=== PATIENT | female | born 1965 | race African-American/Black ===

== ENCOUNTER 2021-05-09 17:48 | Emergency (ER) | payer MEDICAID, SELFPAY ==
[2021-05-09 17:57] VITALS: BP 181/143; PULSE 102; RESP 26; TEMP 36.3; BMI 35.0
--- NOTE | 2021-05-09 19:25 | EKG12_ITS ---
Test Reason : RIB PAIN Blood Pressure : / mmHG Vent. Rate : 095 BPM Atrial Rate : 095 BPM P-R Int : 142 ms QRS Dur : 084 ms QT Int : 356 ms P-R-T Axes : 054 -06 008 degrees QTc Int : 447 ms Normal sinus rhythm Voltage criteria for left ventricular hypertrophy Abnormal ECG Confirmed by MINDI AUGUSTE, REGINA ([id number]), editorial assistant EFREM GRADY ([id number]) on 05/12/2021 10:00:54 AM Referred By: Confirmed By:REGINA OBREGON MD
[2021-05-09 19:26] VITALS: RESP 17
[2021-05-09] MEDS: Ondansetron 4 MG/2 ML Vial IV (19:33)
[2021-05-09] MEDS: 0.9% Normal Saline 1,000 ML 1000 ML IV (19:33)
[2021-05-09 19:34] LABS: Absolute Lymphocyte Count 4.21 X10^3/uL (0.83-4.51); Absolute Neutrophil Count 8.1 X10^3/uL (2.0-7.7); Basophil# 0.04 X10^3/uL; Basophil% 0.3 % (0-1); Eosinophil# 0.38 X10^3/uL; Eosinophils% 2.8 % (0-5); Hematocrit 38.8 % (37-47); Hemoglobin 12.1 g/dL (12.0-15.0); Lymphocyte # 4.21 X10^3/ul (0.83-4.51); Lymphocyte % 31.3 % (19-41); Mean Corp Hgb Conc 31.2 g/dL (32-36); Mean Corpuscular Volume 86.6 fL (81-99); Mean Platelet Vol. 11.1 fl (6.2-12.0); Monocyte# 0.56 X10^3/uL; Monocyte% 4.2 % (0-10); NRBC Flagged by Analyzer 0 % (0-5); Neutrophil # 8.12 X10^3/uL (2.7-7.7); Neutrophil % 60.5 % (47-70); Platelet Count 323 K/mm3 (150-450); RBC Distribution Width SD 56.4 fl (35.1-43.9); Red Blood Count 4.48 M/mm3 (4.2-5.4); White Blood Count 13.4 K/mm3 (4.4-11.0)
[2021-05-09] MEDS: Ketorolac 15 MG/ML Vial IV (19:34)
--- NOTE | 2021-05-09 19:42 | RAD_ITS ---
STUDY: X-RAY CHEST REASON FOR EXAM: Female, 55 years old. chest pain TECHNIQUE: Single AP portable view of the chest. COMPARISON: None. FINDINGS: Mild interstitial edema is present in bilateral perihilar regions, however no consolidation is seen. There is no demonstrated pleural abnormality. Normal size heart. Normal mediastinum and hernan. Normal visualized pulmonary arteries. There is atherosclerotic calcification of the aortic arch with tortuosity. Normal visualized thoracic spine. Normal visualized ribs, clavicles, and shoulders. There is no demonstrated abnormality of the visualized soft tissue structures of the upper abdomen. RAD/Chest 1 View (Portable) IMPRESSION: Mild interstitial edema is present in bilateral perihilar regions, however no consolidation is seen. Electronically Signed: Ari Melgar MD at 20:28 EDT , Service support ,
[2021-05-09 19:49] VITALS: BP 154/61; PULSE 90; RESP 15; O2SAT 96
[2021-05-09 19:56] LABS: ALB/GLOB Ratio 0.8 RATIO (0.9-2.4); AST(SGOT) 21 U/L (15-37); Alanine Aminotransfer ALT/SGPT 42 U/L (13-56); Albumin, Serum 3.8 g/dL (3.2-5.0); Alkaline Phosphatase 100 U/L (45-117); Anion Gap 9 (5-15); BUN 23 mg/dL (7-18); BUN/Creat Ratio 14.6 RATIO (10-20); Calcium,Total 10.7 mg/dL (8.5-10.1); Chloride 102 mmol/L (98-107); Creatinine, Serum 1.58 mg/dL (0.55-1.02); EST Glomerular Filtration Rate 36 mL/min (>60); Est Glom Filt Rate - Afr Amer 43 mL/min (>60); Estimated Creatinine Clearance 34.33 ml/min; Globulin 4.9 g/dL (2.2-4.2); Glucose 100 mg/dL (74-106); Lipase 136 U/L (73-393); Potassium 3.4 mmol/L (3.5-5.1); Protein, Total 8.7 g/dL (6.4-8.2); Sodium Level 140 mmol/L (136-145); Troponin-I HS 23.8 pg/mL (3.0-53.7)
--- NOTE | 2021-05-09 20:01 | CT_ITS ---
STUDY: CT ABDOMEN AND PELVIS WITH CONTRAST REASON FOR EXAM: Female, 55 years old. vomiting chest/back pain, noncompliant diabetic, hx substance abuse, bilat lower extremity amputation RADIATION DOSAGE (If Supplied By Facility): CTDIvol = ( 14.45 ) mGy, DLP = ( 1165.56 ) mGycm TECHNIQUE: Transaxial images were obtained from the dome of the diaphragm to the symphysis pubis without oral contrast. IV 100mL Isovue-300 was administered. Sagittal and coronal images were reconstructed. Individualized dose optimization techniques were used for this CT. COMPARISON: None. FINDINGS: There are chronic interstitial fibrotic changes of the lung bases. Mild interstitial edema is present in bilateral lower lobes. Discoid atelectasis is present in the right lower lobe. A small parenchymal cyst is also present in the medial aspect of the right lower lobe. There are several healed right-sided rib fractures. There is decreased attenuation of the liver consistent with steatosis. The liver is mildly enlarged. Normal gallbladder and extrahepatic biliary system. Normal spleen. Normal pancreas. Normal bilateral adrenal glands. Normal right kidney. Normal left kidney. Normal visualized stomach. Normal small intestine. Normal colon. The appendix is visualized and appears normal. There is diffuse atherosclerotic calcification of the abdominal aorta, without a demonstrated aneurysm. Vascular stents are present in the bilateral common iliac arteries. Normal inferior vena cava. Normal retroperitoneum. Normal urinary bladder. A shallow umbilical hernia is present containing the midportion of the transverse colon but without incarceration. There are diffuse degenerative changes of the visualized lumbar spine. CT/Abdomen/Pelvis W IV Cont ONLY IMPRESSION: 1. A shallow umbilical hernia is present containing the midportion of the transverse colon but without incarceration. 2. There are chronic interstitial fibrotic changes of the lung bases. Mild interstitial edema is present in bilateral lower lobes. 3. Discoid atelectasis is present in the right lower lobe. A small parenchymal cyst is also present in the medial aspect of the right lower lobe. Electronically Signed: Ari Melgar MD at 21:11 EDT , Service support ,
[2021-05-09 21:01] VITALS: BP 128/63; PULSE 88; RESP 14; O2SAT 97
[2021-05-09 21:11] LABS: Mucous, Urine 0 SEEN /hpf (<or=2+); Red Blood Cells-Urine 0 SEEN /hpf (0-5); Squamous Epithelial Cells - UA 0 SEEN /hpf (5-10)
[2021-05-09 21:14] LABS: Color, Urine Yellow (Yellow); Glucose, Dipstick Normal (Normal); Ketone-Dipstick Negative (Negative); Leukocyte Esterase-Dipstick 25 /ul (Negative); Nitrite-Dipstick Negative (Negative); Occult Blood-Urine Negative /ul (Negative); Protein-Dipstick 30 mg/dl (Negative); Specific Gravity, Urine 1.015 (1.002-1.030); Urine Clarity Clear (Clear); Urine Urobilinogen 1 mg/dl (Normal)
[2021-05-09 21:19] LABS: Urine Bilirubin Dipstick 1 mg/dL (Negative)
[2021-05-09 21:20] LABS: Bacteria 1+ /hpf (None Seen)
[2021-05-09 21:21] LABS: Hyaline Cast 10-25 SEEN /lpf (0-5)
[2021-05-09 21:26] LABS: Transitional Epithelial - Ur 5-10 SEEN /hpf (0-5); White Blood Cells 0-5 SEEN /hpf (0-5)
--- NOTE | 2021-05-09 21:26 | ED.VIS.CHEST ---
HPI History of Present Illness Chief Complaint: Chest Pain Informant: patient and friend Narrative Narrative: 55-year-old female history of diabetes dyslipidemia schizoaffective disorder and bipolar disorder presents the emergency department stating that her back and her chest hurt and she has been vomiting all day. No reported fevers. No diarrhea. She also states that since arriving in from the emergency squad she has been itchy. She notes her chest pain is worse with vomiting and with cough. No sputum production. No reports of bad food, sick contacts, or bad water. 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 Alcohol dependence, uncomplicated Atrophy of muscle of multiple sites Bipolar disorder, unspecified Cocaine abuse, uncomplicated Essential (primary) hypertension Gastro-esophageal reflux disease without esophagitis Hyperlipidemia, unspecified Insomnia, unspecified Major depressive disorder, single episode, unspecified Metabolic encephalopathy Muscle weakness (generalized) Other chronic pain Patient's noncompliance with other medical treatment and regimen Peripheral vascular disease, unspecified Schizoaffective disorder, bipolar type Type 2 diabetes mellitus without complications Vitamin D deficiency, unspecified Home Medications aspirin 81 mg tablet,delayed release 81 mg PO DAILY 04/28/21 [History Last Taken Unknown] atorvastatin 40 mg tablet 40 mg PO QHS 04/28/21 [History Last Taken Unknown] cholecalciferol (vitamin D3) 125 mcg (5,000 unit) capsule 125 mcg PO DAILY 04/28/21 [History Last Taken Unknown] diclofenac sodium 1 % topical gel 2 g TOPICAL BID g 04/28/21 [History Last Taken Unknown] gabapentin 300 mg capsule 300 mg PO TID 04/28/21 [History Last Taken Unknown] glipizide 10 mg tablet 10 mg PO TID tab 04/28/21 [History Last Taken Unknown] guaifenesin 400 mg tablet 400 mg PO BID tab 04/28/21 [History Last Taken Unknown] hydrochlorothiazide 25 mg tablet 25 mg PO BID 04/28/21 [History Last Taken Unknown] ibuprofen 800 mg tablet 800 mg PO Q8H PRN 04/28/21 [History Last Taken Unknown] insulin glargine 100 unit/mL (3 mL) subcutaneous pen 75 unit SUBCUT BID ml 04/28/21 [History Last Taken Unknown] insulin lispro 100 unit/mL subcutaneous pen 25 unit SUBCUT .QID ml 04/28/21 [History Last Taken Unknown] lisinopril 10 mg tablet 10 mg PO DAILY 04/28/21 [History Last Taken Unknown] magnesium hydroxide 400 mg/5 mL oral suspension 30 ml PO BID PRN ml 04/28/21 [History Last Taken Unknown] melatonin 3 mg tablet 3 mg PO HS 04/28/21 [History Last Taken Unknown] metformin 1,000 mg tablet 1,000 mg PO BID 04/28/21 [History Last Taken Unknown] omeprazole 40 mg capsule,delayed release 40 mg PO DAILY 04/28/21 [History Last Taken Unknown] ondansetron HCl 4 mg tablet 4 mg PO Q6H PRN 04/28/21 [History Last Taken Unknown] sennosides 8.6 mg-docusate sodium 50 mg tablet 1 tab-cap PO BID tab 04/28/21 [History Last Taken Unknown] sertraline 100 mg tablet 100 mg PO DAILY 04/28/21 [History Last Taken Unknown] trazodone 50 mg tablet 75 mg PO QHS tab 04/28/21 [History Last Taken Unknown] Allergy/AdvReac Type Severity Reaction Status Date / Time No Known Allergies Allergy Unverified 05/09/21 19:38 Social History Smoking Status: Current every day smoker tobacco type: cigarettes alcohol intake: current substance use type: former substance user what type of physical activity do you participate in: none ROS ROS ED Constitutional Constitutional ED: Denies chills or weight loss Eyes Eyes: Denies change in vision or diplopia ENT ENT ED: Denies ear pain, rhinorrhea or sore throat Cardiovascular Cardiovascular: Reports chest pain; Denies orthopnea, palpitations or racing heartbeat Respiratory/Chest Respiratory/Chest: Reports cough; Denies dyspnea or orthopnea Gastrointestinal Gastrointestinal: Reports abdominal pain, nausea and vomiting; Denies diarrhea Genitourinary Genitourinary ED: Denies dysuria, hematuria or urinary frequency Musculoskeletal Musculoskeletal: Reports back pain; Denies arthralgias or myalgias Integumentary Denies abscess or rash Neurologic Neurologic: Denies headache(s) or weakness Psychiatric Psychiatric: Denies anxiety, depression, suicidal ideation or suicidal thoughts Endocrine Endocrinology: Denies polydipsia, polyphagia or polyuria Allergic/Immunologic Allergic/Immunologic ED: Denies mouth swelling, tongue swelling or urticaria EXAM Physical Exam Const Vital Signs: 05/09/21 17:57 05/09/21 18:01 05/09/21 19:26 Temperature 97.4 F L Temperature Source Temporal Pulse Rate 102 H Respiratory Rate 26 H 17 Respiratory Effort Normal Non-Labored Blood Pressure 181/143 H Blood Pressure Mean 155 Pulse Ox Oxygen Delivery Method Room Air Room Air 05/09/21 19:49 05/09/21 21:01 Temperature Temperature Source Pulse Rate 90 88 Respiratory Rate 15 14 Respiratory Effort Blood Pressure 154/61 H 128/63 H Blood Pressure Mean 92 84 Pulse Ox 96 97 Oxygen Delivery Method Room Air Room Air Positive well nourished and well developed General Appearance ED: well developed HEENT Reports normocephalic, head/scalp atraumatic and moist mucous membranes Eyes PERRL and EOMs intact bilaterally Neck no lymphadenopathy, supple and no JVD Chest Wall Chest: tenderness Resp normal respiratory effort Effort and Inspection: pain with movement Cardio regular rate, regular rhythm and no murmurs GI normal to inspection, nondistended, normoactive bowel sounds and non-tender Palpation: soft Back/Spine no CVA tenderness and normal ROM Extremity Extremity Narrative: Bilateral BKA General Extremety ED: Negative for edema or tenderness General Extremity: Negative for edema Neuro oriented x3 and CN's II-XII intact bilaterally Sensorium / Orientation: alert Motor Exam: strength 5/5 throughout Psych mental status grossly normal Mood & Affect: Negative for depressed or tearful Skin no rashes or lesions noted and no wounds Heart Score History: Slightly/Non-Suspicious ECG: Normal Age: >45 - <65 years Risk Factors: >/= 3 Risk Factors or History of CAD Troponin: </= Normal Limit Score: 3 MDM MDM MDM Narrative Medical decision making narrative: Patient received Zofran Toradol and IV fluids. She also received Benadryl for her itching. Basic blood work showed nonspecific white count of 13.4. Potassium 3.4. Creatinine 1.58. Urinalysis does not demonstrate any obvious infection lipase 136. Interpretation of the chest x-ray is no acute process. CT the abdomen pelvis was obtained and is negative for acute findings. At this point patient will be discharged home. Would recommend oral hydration as needed Tylenol for the chest pain. She states that she has Zofran at home. Lab Data Attestation: I reviewed the patient's lab results. Labs: Laboratory Results - last 24 hr 05/09/21 05/09/21 05/09/21 17:55 17:55 21:00 WBC 13.4 H RBC 4.48 Hgb 12.1 Hct 38.8 MCV 86.6 MCH 27.0 MCHC 31.2 L RDW Std Deviation 56.4 H RDW Coeff of Thien 18.0 H Plt Count 323 MPV 11.1 Immature Gran % (Auto) 0.900 Neut % (Auto) 60.5 Lymph % (Auto) 31.3 [place] % (Auto) 4.2 Eos % (Auto) 2.8 Baso % (Auto) 0.3 Absolute Neuts (auto) 8.1 H Absolute Lymphs (auto) 4.21 Nucleated RBC % 0 Sodium 140 Potassium 3.4 L Chloride 102 Carbon Dioxide 29.0 Anion Gap 9 BUN 23 H Creatinine 1.58 H Estim Creat Clear Calc 34.33 Est GFR (MDRD) Af Amer 43 L Est GFR (MDRD) Non-Af 36 L BUN/Creatinine Ratio 14.6 Glucose 100 Calcium 10.7 H Total Bilirubin 0.20 AST 21 ALT 42 Alkaline Phosphatase 100 Troponin I High Sens 23.8 Total Protein 8.7 H Albumin 3.8 Globulin 4.9 H Albumin/Globulin Ratio 0.8 L Lipase 136 Urine Color Yellow Urine Clarity Clear Urine pH 5.0 Ur Specific [place] 1.015 Urine Protein 30 H Urine Glucose (UA) Normal Urine Ketones Negative Urine Occult Blood Negative Urine Nitrite Negative Urine Bilirubin 1 H Urine Urobilinogen 1 H Ur Leukocyte Esterase 25 H Urine RBC 0 SEEN Urine WBC 0-5 SEEN Ur Squamous Epith Cells 0 SEEN Ur Transition Epith Cell 5-10 SEEN Urine Bacteria 1+ Hyaline Casts 10-25 SEEN Urine Mucus 0 SEEN Radiography Diagnostic Testing: Radiology Impression Chest X-Ray 05/09/21 19:42 IMPRESSION: Mild interstitial edema is present in bilateral perihilar regions, however no consolidation is seen. Electronically Signed: Ari Melgar MD at 20:28 EDT , Service support , Abdomen/Pelvis CT 05/09/21 20:01 IMPRESSION: 1. A shallow umbilical hernia is present containing the midportion of the transverse colon but without incarceration. 2. There are chronic interstitial fibrotic changes of the lung bases. Mild interstitial edema is present in bilateral lower lobes. 3. Discoid atelectasis is present in the right lower lobe. A small parenchymal cyst is also present in the medial aspect of the right lower lobe. Electronically Signed: Ari Melgar MD at 21:11 EDT , Service support , EKG Initial EKG: Attestation: I personally reviewed and interpreted this EKG as follows: Comments: EKG demonstrates a normal sinus rhythm at a rate of 95 bpm. No concerning features of ACS or ectopy noted. Discharge Plan Triage Chief Complaint: Chest Pain ED Provider: Magno Trejo Dx/Rx/DC Orders Clinical Impression: Chest pain, Vomiting Instructions: ED Strain Chest Wall, ED Vomiting (Adult) Prescriptions: No Action aspirin 81 mg tablet,delayed release (DR/EC) 81 mg PO DAILY RF: 0 atorvastatin 40 mg tablet 40 mg PO QHS RF: 0 gabapentin 300 mg capsule 300 mg PO TID RF: 0 glipizide 10 mg tablet 10 mg PO TID RF: 0 hydrochlorothiazide 25 mg tablet 25 mg PO BID RF: 0 ibuprofen 800 mg tablet 800 mg PO Q8H PRN (Reason: Pain) RF: 0 insulin lispro 100 unit/mL insulin pen 25 unit subcut .QID RF: 0 Lantus Solostar U-100 Insulin 100 unit/mL (3 mL) insulin pen 75 unit subcut BID RF: 0 lisinopril 10 mg tablet 10 mg PO DAILY RF: 0 melatonin 3 mg tablet 3 mg PO HS RF: 0 metformin 1,000 mg tablet 1,000 mg PO BID RF: 0 magnesium hydroxide [Milk of Magnesia] 400 mg/5 mL suspension 30 ml PO BID PRN (Reason: Constipation) RF: 0 guaifenesin [Mucus Relief] 400 mg tablet 400 mg PO BID RF: 0 omeprazole 40 mg capsule,delayed release(DR/EC) 40 mg PO DAILY RF: 0 sennosides-docusate sodium [Senna Plus] 8.6-50 mg tablet 1 tab-cap PO BID RF: 0 sertraline 100 mg tablet 100 mg PO DAILY RF: 0 trazodone 50 mg tablet 75 mg PO QHS RF: 0 cholecalciferol (vitamin D3) 125 mcg (5,000 unit) capsule 125 mcg PO DAILY RF: 0 diclofenac sodium 1 % gel 2 g topical BID RF: 0 ondansetron HCl [Zofran] 4 mg tablet 4 mg PO Q6H PRN (Reason: Nausea) RF: 0 Primary Care Provider: Chris Bustamante Referrals: Chris Bustamante MD [Primary Care Provider] - 3-5 Days if not improving Disposition Disposition: Home, Self Care
[2021-05-09 21:35] VITALS: BP 112/53; PULSE 88; RESP 18; O2SAT 95
== END 2021-05-09 21:40 | disposition home or self-care (01) ==
PROVIDERS: Emergency Provider Emergency Medicine; PCP Internal Medicine
DX: R07.9 Chest pain, unspecified (principal); R11.10 Vomiting, unspecified; K42.9 Umbilical hernia without obstruction or gangrene; J81.1 Chronic pulmonary edema; J98.11 Atelectasis; E11.51 Type 2 diabetes mellitus with diabetic peripheral angiopathy without gangrene; E78.5 Hyperlipidemia, unspecified; F17.210 Nicotine dependence, cigarettes, uncomplicated; F14.10 Cocaine abuse, uncomplicated; F25.0 Schizoaffective disorder, bipolar type; G47.00 Insomnia, unspecified; G89.29 Other chronic pain; I10 Essential (primary) hypertension; I25.10 Atherosclerotic heart disease of native coronary artery without angina pectoris; K21.9 Gastro-esophageal reflux disease without esophagitis; Z79.4 Long term (current) use of insulin; Z79.82 Long term (current) use of aspirin; Z91.19 Patient's noncompliance with other medical treatment and regimen
CPT/HCPCS: 71045; 74177; 80053; 81001; 83690; 84484; 85025; 93005; 96361; 96374; 96375; 99285; J7030; Q9967; J2405

== ENCOUNTER → 2021-05-26 14:15 | Outpatient (CLI) | payer MEDICAID, SELFPAY ==
[2021-05-26 13:51] VITALS: BMI 35.0
[2021-05-26 14:59] LABS: Absolute Lymphocyte Count 3.57 X10^3/uL (0.83-4.51); Absolute Neutrophil Count 7.3 X10^3/uL (2.0-7.7); Basophil# 0.04 X10^3/uL; Basophil% 0.3 % (0-1); Eosinophil# 0.39 X10^3/uL; Eosinophils% 3.3 % (0-5); Hematocrit 40.4 % (37-47); Hemoglobin 12.5 g/dL (12.0-15.0); Lymphocyte # 3.57 X10^3/ul (0.83-4.51); Lymphocyte % 29.9 % (19-41); Mean Corp Hgb Conc 30.9 g/dL (32-36); Mean Corpuscular Hgb 27.4 pg (27.0-32.0); Mean Corpuscular Volume 88.6 fL (81-99); Monocyte# 0.57 X10^3/uL; Monocyte% 4.8 % (0-10); NRBC Flagged by Analyzer 0 % (0-5); Neutrophil # 7.28 X10^3/uL (2.7-7.7); Neutrophil % 60.9 % (47-70); Platelet Count 353 K/mm3 (150-450); RBC Distribution Width CV 17.7 % (11.6-14.6); RBC Distribution Width SD 56.5 fl (35.1-43.9); Red Blood Count 4.56 M/mm3 (4.2-5.4)
[2021-05-26 15:21] LABS: Hemoglobin A1c 8.5 % (3.8-5.6)
[2021-05-26 15:25] LABS: ALB/GLOB Ratio 0.8 RATIO (0.9-2.4); AST(SGOT) 28 U/L (15-37); Alanine Aminotransfer ALT/SGPT 53 U/L (13-56); Albumin, Serum 3.7 g/dL (3.2-5.0); Alkaline Phosphatase 99 U/L (45-117); Anion Gap 10 (5-15); BUN 26 mg/dL (7-18); BUN/Creat Ratio 19.4 RATIO (10-20); Chloride 101 mmol/L (98-107); Cholesterol 205 mg/dL (200); Creatinine, Serum 1.34 mg/dL (0.55-1.02); EST Glomerular Filtration Rate 43 mL/min (>60); Est Glom Filt Rate - Afr Amer 52 mL/min (>60); Globulin 4.8 g/dL (2.2-4.2); Glucose 208 mg/dL (74-106); High Density Lipoprotein 27 mg/dL; Potassium 4.1 mmol/L (3.5-5.1); Protein, Total 8.5 g/dL (6.4-8.2); Sodium Level 138 mmol/L (136-145); Triglycerides 386 mg/dL; Very Low Density Lipoprotein 77 mg/dL (5-40)
[2021-05-26 17:08] LABS: Microalbumin,Random Urine 13.6 mg/L (NO RANGE EST.); Microalbumin:Creatinine Ratio 14.7 mg/g CRE (<30 mg/g CRE)
== END ==
PROVIDERS: PCP Internal Medicine; Referring Provider Internal Medicine; Visit Provider Internal Medicine
DX: E11.9 Type 2 diabetes mellitus without complications (principal)
CPT/HCPCS: 36415; 80053; 80061; 82043; 82570; 83036; 85025

== ENCOUNTER → 2021-05-27 12:35 | Outpatient (CLI) | payer MEDICAID, SELFPAY ==
[2021-05-26 13:51] VITALS: BMI 35.0
--- NOTE | 2021-05-27 12:39 | RAD_ITS ---
STUDY: X-RAY - LUMBAR SPINE REASON FOR EXAM: Female, 55 years old. Chronic Low Back Pain TECHNIQUE: 5 view(s) of the lumbar spine were obtained. COMPARISON: None FINDINGS: Normal lumbar lordosis. There is no substantial scoliosis. There is a normal alignment of the vertebrae. Normal vertebral bodies and endplates. Focal disc space narrowing and osteophyte formation at L5/S1 consistent with degenerative disc disease. The soft tissue structures are unremarkable. RAD/L/S Spine Min 4 Views IMPRESSION: Focal degenerative disc disease L5/S1. MRI may be useful. Electronically Signed: Ramón Cheung MD at 13:25 EDT Tel , Service support ,
--- NOTE | 2021-05-27 12:40 | RAD_ITS ---
STUDY: X-RAY - CERVICAL SPINE REASON FOR EXAM: Female, 55 years old. Chronic Neck Pain TECHNIQUE: 3 view(s) of the cervical spine were obtained. COMPARISON: None FINDINGS: Normal anterior atlantoaxial articulation. Normal odontoid process. Normal cervical lordosis. Normal vertebral bodies and endplates. Focal disc space narrowing and osteophyte formation at C5/C6 consistent with degenerative disc disease. 2 mm retrolisthesis of C5 on C6. Normal visualized intervertebral neuroforamina. The soft tissue structures are unremarkable. RAD/Cerv Spine 2 or 3 Views IMPRESSION: Focal degenerative disc disease at C5-C6 with 2 mm retrolisthesis of C5 on C6. Electronically Signed: Ramón Cheung MD at 13:23 EDT Tel , Service support ,
== END ==
PROVIDERS: PCP Internal Medicine; Referring Provider Internal Medicine; Visit Provider Internal Medicine
DX: M54.2 Cervicalgia (principal); G89.29 Other chronic pain; M54.5 Low back pain
CPT/HCPCS: 72040; 72110

== ENCOUNTER → 2021-08-10 11:45 | Outpatient (CLI) | payer MEDICAID, SELFPAY ==
[2021-08-10 15:30] LABS: Anion Gap 8 (5-15); BUN 13 mg/dL (7-18); Calcium,Total 9.1 mg/dL (8.5-10.1); Chloride 103 mmol/L (98-107); Cholesterol 148 mg/dL (200); EST Glomerular Filtration Rate 61 mL/min (>60); Est Glom Filt Rate - Afr Amer 74 mL/min (>60); Glucose 151 mg/dL (74-106); High Density Lipoprotein 26 mg/dL; Potassium 3.8 mmol/L (3.5-5.1); Sodium Level 137 mmol/L (136-145); Triglycerides 221 mg/dL; Very Low Density Lipoprotein 44 mg/dL (5-40)
[2021-08-10 15:37] LABS: Hemoglobin A1c 8.7 % (3.8-5.6)
== END ==
PROVIDERS: PCP Internal Medicine; Referring Provider Internal Medicine; Visit Provider Internal Medicine
DX: E11.9 Type 2 diabetes mellitus without complications (principal)
CPT/HCPCS: 36415; 80048; 80061; 83036

== ENCOUNTER → 2021-08-26 11:00 | Outpatient (CLI) | payer MEDICAID, SELFPAY ==
[2021-08-26 13:11] LABS: Thyroid Stim Hormone (TSH) 1.65 uIU/mL (0.358-3.74)
== END ==
PROVIDERS: PCP Internal Medicine; Referring Provider Nurse Practitioner Family; Visit Provider Nurse Practitioner Family
DX: Z00.00 Encounter for general adult medical examination without abnormal findings (principal); E11.9 Type 2 diabetes mellitus without complications
CPT/HCPCS: 36415; 84443

== ENCOUNTER → 2021-09-01 13:01 | Outpatient (CLI) | payer MEDICAID, SELFPAY ==
--- NOTE | 2021-09-01 13:05 | US_ITS ---
STUDY: THYROID ULTRASOUND REASON FOR EXAM: Female, 56 years old. Palpable enlarged thyroid TECHNIQUE: Ultrasound evaluation of the thyroid was performed with real-time and static antunez-scale imaging. COMPARISON: None. FINDINGS: RIGHT LOBE: The right lobe of the thyroid gland measures 7.7 x 2.4 x 1.9 cm. There is a heterogeneous echotexture. There are multiple solid/cystic complex nodules, largest measures 1.1 x 0.8 x 0.9 cm LEFT LOBE: The left lobe of the thyroid gland measures 6.6 x 2.6 x 2.1 cm. There is a heterogeneous echotexture. Multiple solid nodules, largest measures 1.0 x 0.7 x 0.9 cm. ISTHMUS: The isthmus measures 7.0 mm. The regional lymph nodes are normal. US/Thyroid IMPRESSION: Enlarged heterogeneous thyroid gland with multiple bilateral nodules. Solid nodules noted in the left lobe, complex nodules noted in the right. Sonography cannot establish between benign and aggressive nodules, and since there are no previous studies available for comparison, thyroid uptake study is recommended for further evaluation. Electronically Signed: Kike Alegre MD at 17:01 EST , Service support ,
== END ==
PROVIDERS: PCP Internal Medicine; Referring Provider Nurse Practitioner Family; Visit Provider Nurse Practitioner Family
DX: E01.0 Iodine-deficiency related diffuse (endemic) goiter (principal)
CPT/HCPCS: 76536

== ENCOUNTER 2021-09-28 13:36 | Observation (INO) | payer MEDICAID, SELFPAY ==
[2021-09-28] VITALS (15 sets, daily range): BP systolic 58–130; BP diastolic 47–95; PULSE 88–113; RESP 14–20; TEMP 36.4–36.7; O2SAT 93–98; BMI 30.4
--- NOTE | 2021-09-28 14:19 | EKG12_ITS ---
Test Reason : PAIN Blood Pressure : / mmHG Vent. Rate : 108 BPM Atrial Rate : 108 BPM P-R Int : 132 ms QRS Dur : 090 ms QT Int : 324 ms P-R-T Axes : 045 003 038 degrees QTc Int : 434 ms Sinus tachycardia Nonspecific T wave abnormality Abnormal ECG Confirmed by VIRAL AUGUSTE, JONG ([id number]), sports editor EFREM GRADY ([id number]) on 09/30/2021 12:45:22 PM Referred By: ELLIOTT Confirmed By:AGAPITO STRATTON MD
--- NOTE | 2021-09-28 14:21 | EX.ED.DYSGE1 ---
HPI History of Present Illness Chief Complaint: Other, Pain/Inj Detail of Chief Complaint: Not feeling well x3 weeks Informant: patient Narrative Narrative: Patient presents to the emergency department via EMS from home with complaint not feeling well for the last 3 weeks or so. Patient apparently lives alone and gets around in a power wheelchair. 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 Patient complains of diffuse body pain. She complains of cough. She complains of dysuria. Intermittent abdominal discomfort. Decreased appetite. Low-grade fever that subjective. Patient has a history of bipolar disorder as well as schizophrenia and diabetes and high cholesterol. Patient has history of chronic pain. [facility] Medical History Acquired absence of left leg below knee Acquired absence of right leg below knee Alcohol dependence, uncomplicated Atrophy of muscle of multiple sites Bipolar disorder, unspecified Chronic low back pain Chronic neck pain Chronic pain Cocaine abuse, uncomplicated Colon cancer screening Essential (primary) hypertension Flu vaccine need Gastro-esophageal reflux disease without esophagitis Hyperlipidemia, unspecified Insomnia, unspecified Major depressive disorder, single episode, unspecified Metabolic encephalopathy Muscle weakness (generalized) Other chronic pain Patient's noncompliance with other medical treatment and regimen Peripheral vascular disease, unspecified Preventative health care Schizoaffective disorder, bipolar type Type 2 diabetes mellitus Type 2 diabetes mellitus without complications Vitamin D deficiency, unspecified Home Medications diclofenac sodium 1 % topical gel 2 g TOPICAL BID g 04/28/21 [History Last Taken Unknown] guaifenesin 400 mg tablet 400 mg PO BID tab 04/28/21 [History Last Taken Unknown] ibuprofen 800 mg tablet 800 mg PO Q8H PRN 04/28/21 [History Last Taken Unknown] magnesium hydroxide 400 mg/5 mL oral suspension 30 ml PO BID PRN ml 04/28/21 [History Last Taken Unknown] ondansetron HCl 4 mg tablet 4 mg PO Q6H PRN 04/28/21 [History Last Taken Unknown] sennosides 8.6 mg-docusate sodium 50 mg tablet 1 tab-cap PO BID tab 04/28/21 [History Last Taken Unknown] oxycodone 10 mg tablet 10 mg PO Q6H PRN 05/26/21 [History Last Taken Unknown] aspirin 81 mg tablet,delayed release 81 mg PO DAILY #90 tab 05/31/21 [Rx Last Taken Unknown] atorvastatin 40 mg tablet 40 mg PO QHS #90 tab 05/31/21 [Rx Last Taken Unknown] empagliflozin 25 mg tablet 25 mg PO DAILY #90 tab 05/31/21 [Rx Last Taken Unknown] glipizide 10 mg tablet 10 mg PO BID #180 tab 05/31/21 [Rx Last Taken Unknown] hydrochlorothiazide 25 mg tablet 25 mg PO DAILY #90 tab 05/31/21 [Rx Last Taken Unknown] lisinopril 10 mg tablet 10 mg PO DAILY #90 tab 05/31/21 [Rx Last Taken Unknown] metformin 1,000 mg tablet 1,000 mg PO BID #180 tab 05/31/21 [Rx Last Taken Unknown] omeprazole 40 mg capsule,delayed release 40 mg PO DAILY #90 cap 05/31/21 [Rx Last Taken Unknown] sertraline 100 mg tablet 100 mg PO DAILY #90 tab 05/31/21 [Rx Last Taken Unknown] trazodone 50 mg tablet 75 mg PO QHS #90 tab 05/31/21 [Rx Last Taken Unknown] blood sugar diagnostic #100 ea 06/09/21 [Rx Last Taken Unknown] cholecalciferol (vitamin D3) 125 mcg (5,000 unit) capsule 125 mcg PO DAILY #90 cap 06/09/21 [Rx Last Taken Unknown] lancets #100 ea 06/09/21 [Rx Last Taken Unknown] melatonin 3 mg tablet 3 mg PO QHS PRN #90 tab 06/09/21 [Rx Last Taken Unknown] amlodipine 5 mg tablet 5 mg PO DAILY #90 tab 06/23/21 [Rx Last Taken Unknown] quetiapine 25 mg tablet 25 mg PO TID #90 tab 07/08/21 [Rx Last Taken Unknown] albuterol sulfate 90 mcg/actuation aerosol inhaler 2 puff INHALATION Q6H PRN #8.5 g 08/10/21 [Rx Last Taken Unknown] pen needle, diabetic 31 gauge x 1/4 #200 ea 08/28/21 [Rx Last Taken Unknown] gabapentin 300 mg capsule 300 mg PO TID #90 cap 09/01/21 [Rx Last Taken Unknown] blood-glucose meter #1 ea 09/23/21 [Rx Last Taken Unknown] flash glucose scanning reader #1 ea 09/23/21 [Rx Last Taken Unknown] flash glucose sensor #2 ea 09/23/21 [Rx Last Taken Unknown] insulin glargine 100 unit/mL (3 mL) subcutaneous pen 75 unit SUBCUT BID 90 Days #135 ml 09/23/21 [Rx Last Taken Unknown] insulin lispro 100 unit/mL subcutaneous pen 25 unit SUBCUT .QID #15 ml 09/23/21 [Rx Last Taken Unknown] Allergy/AdvReac Type Severity Reaction Status Date / Time No Known Allergies Allergy Verified 09/28/21 13:38 Social History Smoking Status: Current every day smoker tobacco type: cigarettes alcohol intake: current substance use type: former substance user what type of physical activity do you participate in: none ROS ROS ED Constitutional Constitutional ED: Reports systems reviewed and no addt'l complaints, except as documented; Denies body ache(s), change in weight or chills Eyes Eyes: Denies acute decrease in peripheral vision, change in vision, double vision or loss of vision ENT ENT ED: Reports none; Denies ear pain, lip swelling, loss taste/smell, neck pain, otalgia or sore throat Cardiovascular Cardiovascular: Reports none; Denies abdominal pain, chest pain with activity, leg edema, lightheadedness, palpitations, rapid heart rate or syncope Respiratory/Chest Respiratory/Chest: Reports none and cough; Denies change in mental status, dry cough, dyspnea, hemoptysis, shortness of breath at rest or shortness of breath with exertion Gastrointestinal Gastrointestinal: Reports none and abdominal pain; Denies change in stool character, diarrhea, hematemesis, hematochezia, melena, rectal bleeding or vomiting Genitourinary Genitourinary ED: Reports none and dysuria; Denies abdominal discomfort, anuria, genital pain or polyuria Musculoskeletal Musculoskeletal: Reports none; Denies arthralgias, back pain, difficulty walking, extremity pain, muscle weakness or myalgias Integumentary Reports none; Denies abscess or rash Neurologic Neurologic: Reports none; Denies abnormal gait, confusion, focal weakness, frequent falls, headache(s), loss of vision, numbness, paresthesias, radicular pain, vertigo or weakness Psychiatric Psychiatric: Reports systems reviewed and no addt'l complaints, except as documented and none; Denies behavioral changes, confusion, difficulty concentrating, hallucinations, suicidal ideation, tactile hallucinations or visual hallucinations Endocrine Endocrinology: Denies none, cold intolerance, excessive sweating, fatigue or heat intolerance Hematologic/Lymphatic Hematologic/Lymphatic: Reports none; Denies anemia, easy bleeding or easy bruising Allergic/Immunologic Allergic/Immunologic ED: Denies as per HPI, none, lip swelling, mouth swelling, throat swelling, tongue swelling or hives EXAM Physical Exam Const Vital Signs: 09/28/21 13:38 09/28/21 14:19 09/28/21 14:20 Temperature 97.8 F Temperature Source Temporal Pulse Rate 113 H Respiratory Rate 18 Blood Pressure 67/47 L 66/50 L 58/48 L Blood Pressure Mean 53 55 51 Pulse Ox 96 Oxygen Delivery Method Room Air 09/28/21 15:24 09/28/21 15:42 09/28/21 16:33 Temperature Temperature Source Pulse Rate 100 89 Respiratory Rate 18 20 H Blood Pressure 71/55 L 76/57 L 105/54 L Blood Pressure Mean 60 63 71 Pulse Ox 96 98 Oxygen Delivery Method Room Air Room Air Positive well nourished and well developed General Appearance ED: well developed and NAD HEENT Reports TM's clear and moist mucous membranes normocephalic and atraumatic; Negative for trauma or tenderness Tympanic Membrane ED: Yes TM's clear Eyes PERRL and EOMs intact bilaterally General Eye ED: Negative for pale conjunctiva or scleral icterus Neck no lymphadenopathy, supple and no JVD General: Negative for tenderness Chest Wall inspection of chest normal and palpation of chest normal Chest: Negative for tenderness Resp normal respiratory effort and clear to auscultation bilaterally Effort and Inspection: Negative for respiratory distress or pain with movement Auscultation: Negative for rhonchi, wheezes or diminished lung sounds Cardio regular rate, regular rhythm, S1 normal heart sound, S2 normal heart sound and no murmurs Peripheral Pulses: pulses 2+ throughout GI normal to inspection, nondistended, normoactive bowel sounds, soft to palpation, non-tender, non-distended and no masses Back/Spine no CVA tenderness and no thoracic nor lumbar tenderness Extremity normal to inspection General Extremety ED: Negative for edema General Extremity: Negative for edema Neuro oriented x3, CN's II-XII intact bilaterally, no sensory deficits noted and gait normal Sensorium / Orientation: awake, alert, oriented to person, oriented to place and oriented to time Motor Exam: strength 5/5 throughout and strength abnormal Psych mental status grossly normal Skin no rashes or lesions noted and no wounds MDM MDM MDM Narrative Medical decision making narrative: IV line established on arrival. Patient was given normal saline fluid boluses. Her blood pressure was low and variable on presentation and at times in the low 100 systolic. Patient is not diaphoretic and she is mentating normally. She was able to transfer herself to the cot. Chest x-ray was read by radiologist as right lower lobe infiltrate. Patient started on Levaquin 750 mg IV. Patient noted to have acute kidney injury. Patient was given fentanyl for the pain in her back. Lab Data Attestation: I reviewed the patient's lab results. Labs: Laboratory Results - last 24 hr 09/28/21 09/28/21 09/28/21 14:43 14:43 14:43 WBC 12.8 H RBC 4.54 Hgb 12.4 Hct 37.4 MCV 82.4 MCH 27.3 MCHC 33.2 RDW Std Deviation 56.5 H RDW Coeff of Thien 19.0 H Plt Count 295 MPV 10.8 Immature Gran % (Auto) 0.900 Neut % (Auto) 67.7 Lymph % (Auto) 25.6 Island % (Auto) 3.2 Eos % (Auto) 2.3 Baso % (Auto) 0.3 Absolute Neuts (auto) 8.6 H Absolute Lymphs (auto) 3.26 Nucleated RBC % 0.2 Sodium 135 L Potassium 4.1 Chloride 102 Carbon Dioxide 21.0 Anion Gap 12 BUN 47 H Creatinine 3.50 H Estim Creat Clear Calc 15.31 Est GFR (MDRD) Af Amer 17 L Est GFR (MDRD) Non-Af 14 L BUN/Creatinine Ratio 13.4 Glucose 203 H Lactic Acid 1.9 Calcium 9.6 Total Bilirubin 0.20 AST 14 L ALT 23 Alkaline Phosphatase 103 Troponin I High Sens 14 Total Protein 8.3 H Albumin 3.3 Globulin 5.0 H Albumin/Globulin Ratio 0.7 L Lipase 130 Urine Color Urine Clarity Urine pH Ur Specific [place] Urine Protein Urine Glucose (UA) Urine Ketones Urine Occult Blood Urine Nitrite Urine Bilirubin Urine Urobilinogen Ur Leukocyte Esterase Urine RBC Urine WBC Ur Squamous Epith Cells Ur Transition Epith Cell Urine Bacteria Urine Mucus 09/28/21 15:30 WBC RBC Hgb Hct MCV MCH MCHC RDW Std Deviation RDW Coeff of Thien Plt Count MPV Immature Gran % (Auto) Neut % (Auto) Lymph % (Auto) Island % (Auto) Eos % (Auto) Baso % (Auto) Absolute Neuts (auto) Absolute Lymphs (auto) Nucleated RBC % Sodium Potassium Chloride Carbon Dioxide Anion Gap BUN Creatinine Estim Creat Clear Calc Est GFR (MDRD) Af Amer Est GFR (MDRD) Non-Af BUN/Creatinine Ratio Glucose Lactic Acid Calcium Total Bilirubin AST ALT Alkaline Phosphatase Troponin I High Sens Total Protein Albumin Globulin Albumin/Globulin Ratio Lipase Urine Color Yellow Urine Clarity Cloudy Urine pH 5.0 Ur Specific [place] 1.020 Urine Protein 30 H Urine Glucose (UA) 1000 H Urine Ketones 5 H Urine Occult Blood 25 H Urine Nitrite Negative Urine Bilirubin 1 H Urine Urobilinogen 1 H Ur Leukocyte Esterase 500 H Urine RBC 0 SEEN Urine WBC 5-10 SEEN Ur Squamous Epith Cells 0-5 SEEN Ur Transition Epith Cell 0-5 SEEN Urine Bacteria RARE Urine Mucus 0 SEEN Radiography Diagnostic Testing: Clinical Impression(s) from Imaging Studies Chest X-Ray 09/28/21 14:47 IMPRESSION: Patchy right perihilar infiltrate. Electronically Signed: Hamilton Blandon MD at 15:09 EST , Service support , EKG Initial EKG: Attestation: I personally reviewed and interpreted this EKG as follows: Comments: Sinus with a ventricular rate of [address] changes. Discharge Plan Triage Chief Complaint: Other, Pain/Inj ED Provider: Ra Carrasco Dx/Rx/DC Orders Clinical Impression: Community acquired pneumonia, Acute kidney injury Prescriptions: No Action oxycodone 10 mg tablet 10 mg PO Q6H PRNRF: 0 ibuprofen 800 mg tablet 800 mg PO Q8H PRN (Reason: Pain) RF: 0 magnesium hydroxide [Milk of Magnesia] 400 mg/5 mL suspension 30 ml PO BID PRN (Reason: Constipation) RF: 0 guaifenesin [Mucus Relief] 400 mg tablet 400 mg PO BID RF: 0 sennosides-docusate sodium [Senna Plus] 8.6-50 mg tablet 1 tab-cap PO BID RF: 0 diclofenac sodium 1 % gel 2 g topical BID RF: 0 ondansetron HCl [Zofran] 4 mg tablet 4 mg PO Q6H PRN (Reason: Nausea) RF: 0 albuterol sulfate 90 mcg/actuation HFA aerosol inhaler 2 puff inhalation Q6H PRN (Reason: shortness of breath or wheezing) Qty: 8.5 RF: 2 Jardiance 25 mg tablet 25 mg PO DAILY Qty: 90 RF: 2 atorvastatin 40 mg tablet 40 mg PO QHS Qty: 90 RF: 3 aspirin 81 mg tablet,delayed release (DR/EC) 81 mg PO DAILY Qty: 90 RF: 2 glipizide 10 mg tablet 10 mg PO BID Qty: 180 RF: 2 hydrochlorothiazide 25 mg tablet 25 mg PO DAILY Qty: 90 RF: 2 lisinopril 10 mg tablet 10 mg PO DAILY Qty: 90 RF: 2 metformin 1,000 mg tablet 1,000 mg PO BID Qty: 180 RF: 3 omeprazole 40 mg capsule,delayed release(DR/EC) 40 mg PO DAILY Qty: 90 RF: 3 sertraline 100 mg tablet 100 mg PO DAILY Qty: 90 RF: 2 trazodone 50 mg tablet 75 mg PO QHS Qty: 90 RF: 2 cholecalciferol (vitamin D3) 125 mcg (5,000 unit) capsule 125 mcg PO DAILY Qty: 90 RF: 1 melatonin 3 mg tablet 3 mg PO QHS PRN (Reason: sleep) Qty: 90 RF: 0 (DME) Blood Glucose Test Strip See Rx Instructions .ROUTE .MEDSUPPLY Qty: 100 RF: 3 (DME) lancets [Fingerstix Lancets] Misc See Rx Instructions .ROUTE .MEDSUPPLY Qty: 100 RF: 0 amlodipine 5 mg tablet 5 mg PO DAILY Qty: 90 RF: 2 quetiapine 25 mg tablet 25 mg PO TID Qty: 90 RF: 3 (DME) pen needle, diabetic [Lite Touch Insulin Pen [place]] 31 gauge x 1/4 needle See Rx Instructions .ROUTE .MEDSUPPLY Qty: 200 RF: 3 gabapentin 300 mg capsule 300 mg PO TID Qty: 90 RF: 2 (DME) blood-glucose meter Misc See Rx Instructions .ROUTE .MEDSUPPLY Qty: 1 RF: 0 (DME) FreeStyle Kory 2 Garibaldi Misc See Rx Instructions .ROUTE .MEDSUPPLY Qty: 1 RF: 0 (DME) FreeStyle Kory 2 Sensor Kit See Rx Instructions .ROUTE .MEDSUPPLY Qty: 2 RF: 3 Lantus Solostar U-100 Insulin 100 unit/mL (3 mL) insulin pen 75 unit subcut BID 90 Days Qty: 135 RF: 2 insulin lispro 100 unit/mL insulin pen 25 unit subcut .QID Qty: 15 RF: 2 Primary Care Provider: Chris Bustamante Referrals: Chris Bustamante MD [Primary Care Provider] - Disposition Disposition: Acute Care Hospital [facility]
--- NOTE | 2021-09-28 14:47 | RAD_ITS ---
STUDY: X-RAY CHEST REASON FOR EXAM: Female, 56 years old. Cough TECHNIQUE: Single AP portable view of the chest. COMPARISON: Comparison is made with prior study dated 05/09/2021. FINDINGS: EKG electrodes are seen. Patchy infiltrate is seen in the right perihilar region. There is no demonstrated pleural abnormality. Normal size heart. Normal mediastinum and hernan. Normal visualized pulmonary arteries. There is atherosclerotic calcification of the aortic arch with tortuosity. Normal visualized thoracic spine. Normal visualized ribs, clavicles, and shoulders. There is no demonstrated abnormality of the visualized soft tissue structures of the upper abdomen. RAD/Chest 1 View (Portable) IMPRESSION: Patchy right perihilar infiltrate. Electronically Signed: Hamilton Blandon MD at 15:09 EST , Service support ,
[2021-09-28 14:55] LABS: Absolute Lymphocyte Count 3.26 X10^3/uL (0.83-4.51); Absolute Neutrophil Count 8.6 X10^3/uL (2.0-7.7); Basophil# 0.04 X10^3/uL; Basophil% 0.3 % (0-1); Eosinophil# 0.29 X10^3/uL; Eosinophils% 2.3 % (0-5); Hematocrit 37.4 % (37-47); Hemoglobin 12.4 g/dL (12.0-15.0); Lymphocyte # 3.26 X10^3/ul (0.83-4.51); Lymphocyte % 25.6 % (19-41); Mean Corp Hgb Conc 33.2 g/dL (32-36); Mean Corpuscular Hgb 27.3 pg (27.0-32.0); Mean Corpuscular Volume 82.4 fL (81-99); Mean Platelet Vol. 10.8 fl (6.2-12.0); Monocyte# 0.41 X10^3/uL; Monocyte% 3.2 % (0-10); NRBC Flagged by Analyzer 0.2 % (0-5); Neutrophil # 8.64 X10^3/uL (2.7-7.7); Neutrophil % 67.7 % (47-70); Platelet Count 295 K/mm3 (150-450); RBC Distribution Width SD 56.5 fl (35.1-43.9); Red Blood Count 4.54 M/mm3 (4.2-5.4); White Blood Count 12.8 K/mm3 (4.4-11.0)
[2021-09-28 15:14] LABS: ALB/GLOB Ratio 0.7 RATIO (0.9-2.4); AST(SGOT) 14 U/L (15-37); Alanine Aminotransfer ALT/SGPT 23 U/L (13-56); Albumin, Serum 3.3 g/dL (3.2-5.0); Alkaline Phosphatase 103 U/L (45-117); Anion Gap 12 (5-15); BUN 47 mg/dL (7-18); BUN/Creat Ratio 13.4 RATIO (10-20); Calcium,Total 9.6 mg/dL (8.5-10.1); Chloride 102 mmol/L (98-107); EST Glomerular Filtration Rate 14 mL/min (>60); Est Glom Filt Rate - Afr Amer 17 mL/min (>60); Estimated Creatinine Clearance 15.31 ml/min; Glucose 203 mg/dL (74-106); Lipase 130 U/L (73-393); Potassium 4.1 mmol/L (3.5-5.1); Protein, Total 8.3 g/dL (6.4-8.2); Sodium Level 135 mmol/L (136-145); Troponin-I HS 14 pg/mL (3.0-54.0)
[2021-09-28] MEDS: fentaNYL 100 MCG/2 ML Ampul 50 MCG IV (15:36)
[2021-09-28] MEDS: Ondansetron 4 MG/2 ML Vial IV (15:36)
--- NOTE | 2021-09-28 15:43 | ED.RN ---
DR CHAVEZ AWARE OF BP. DILAUDID NOT GIVEN. ORDER FOR SUBSTITUTE RECIEVED
[2021-09-28 15:45] LABS: Lactic Acid 1.9 mmol/L (0.4-1.9)
[2021-09-28 15:57] LABS: Mucous, Urine 0 SEEN /hpf (<or=2+); Red Blood Cells-Urine 0 SEEN /hpf (0-5)
[2021-09-28 16:03] LABS: Color, Urine Yellow (Yellow); Glucose, Dipstick 1000 mg/dl (Normal); Ketone-Dipstick 5 mg/dl (Negative); Leukocyte Esterase-Dipstick 500 /ul (Negative); Nitrite-Dipstick Negative (Negative); Occult Blood-Urine 25 /ul (Negative); Protein-Dipstick 30 mg/dl (Negative); Urine Clarity Cloudy (Clear); Urine Urobilinogen 1 mg/dl (Normal)
[2021-09-28 16:05] LABS: Urine Bilirubin Dipstick 1 mg/dL (Negative)
[2021-09-28 16:13] LABS: Squamous Epithelial Cells - UA 0-5 SEEN /hpf (5-10)
[2021-09-28 16:14] LABS: Transitional Epithelial - Ur 0-5 SEEN /hpf (0-5)
[2021-09-28 16:15] LABS: White Blood Cells 5-10 SEEN /hpf (0-5)
[2021-09-28 16:16] LABS: Bacteria RARE /hpf (None Seen)
[2021-09-28] MEDS: levoFLOXacin IV 750 MG/150 ML BAG 100 MG IV (16:31)
[2021-09-28] MEDS: 0.9% Normal Saline 1,000 ML 999 ML IV (16:32)
--- NOTE | 2021-09-28 16:42 | HP.PCM.HOS_ITS ---
HPI - General General Date of Admission: 09/28/21 Date of Service: 09/28/21 Chief Complaint: Cough, pleuritic pain, decreased appetite. 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 She notes the symptoms have been ongoing and worsening over the last 3 weeks. She also reported polyuria/frequency over the last 3 weeks as well. Work-up in the ED included T 97.8, heart rate 113 initially with improvement to 89, BP initially 67/47 decreasing as low as 58/48 and eventually improving to 105/54, respiratory rate 20, 98% on room air, CBC with WC 12.8, hemoglobin 12.4, platelet 295 with left shift, CMP with sodium 135, BUN/creatinine 47/3.50, glucose 203, lactic acid 1.9, hepatic profile not marked appearing, lipase 130, high-sensitivity cardiac troponin 14, chest x-ray with a patchy right perihilar infiltrate. In the ED patient ministered normal saline bolus 1 L as well as maintenance IV fluids continued, fentanyl 50 mcg IV x1, Dilaudid 1 mg IV x1, Levaquin 6 and 50 mg IV x1 as well as Zofran. Despite transient improvement in blood pressure BP did decrease again therefore discuss ed with ED physician and will administer an additional 1.4 L to total patient 30 cc/kg bolus. If patient remains hypotensive following this will require pressor initiation. [facility] Medical History (Updated 09/28/21 @ 17:[address] Dorene Guthrie MD) Acquired absence of left leg below knee Acquired absence of right leg below knee Alcohol dependence, uncomplicated Atrophy of muscle of multiple sites Bipolar disorder, unspecified Chronic low back pain Chronic neck pain Chronic pain Cocaine abuse, uncomplicated Colon cancer screening Essential (primary) hypertension Flu vaccine need Gastro-esophageal reflux disease without esophagitis History of left below knee amputation History of right above knee amputation Hyperlipidemia, unspecified Insomnia, unspecified Major depressive disorder, single episode, unspecified Metabolic encephalopathy Muscle weakness (generalized) Other chronic pain Patient's noncompliance with other medical treatment and regimen Peripheral vascular disease, unspecified Preventative health care Schizoaffective disorder, bipolar type Type 2 diabetes mellitus Type 2 diabetes mellitus without complications Vitamin D deficiency, unspecified Home Medications diclofenac sodium 1 % topical gel 2 g TOPICAL BID g 04/28/21 [History Last Taken Unknown] guaifenesin 400 mg tablet 400 mg PO BID tab 04/28/21 [History Last Taken Unknown] ibuprofen 800 mg tablet 800 mg PO Q8H PRN 04/28/21 [History Last Taken Unknown] magnesium hydroxide 400 mg/5 mL oral suspension 30 ml PO BID PRN ml 04/28/21 [History Last Taken Unknown] ondansetron HCl 4 mg tablet 4 mg PO Q6H PRN 04/28/21 [History Last Taken Unknown] sennosides 8.6 mg-docusate sodium 50 mg tablet 1 tab-cap PO BID tab 04/28/21 [History Last Taken Unknown] oxycodone 10 mg tablet 10 mg PO Q6H PRN 05/26/21 [History Last Taken Unknown] aspirin 81 mg tablet,delayed release 81 mg PO DAILY #90 tab 05/31/21 [Rx Last Ta roberto Unknown] atorvastatin 40 mg tablet 40 mg PO QHS #90 tab 05/31/21 [Rx Last Taken Unknown] empagliflozin 25 mg tablet 25 mg PO DAILY #90 tab 05/31/21 [Rx Last Taken Unknown] glipizide 10 mg tablet 10 mg PO BID #180 tab 05/31/21 [Rx Last Taken Unknown] hydrochlorothiazide 25 mg tablet 25 mg PO DAILY #90 tab 05/31/21 [Rx Last Taken Unknown] lisinopril 10 mg tablet 10 mg PO DAILY #90 tab 05/31/21 [Rx Last Taken Unknown] metformin 1,000 mg tablet 1,000 mg PO BID #180 tab 05/31/21 [Rx Last Taken Un known] omeprazole 40 mg capsule,delayed release 40 mg PO DAILY #90 cap 05/31/21 [Rx Last Taken Unknown] sertraline 100 mg tablet 100 mg PO DAILY #90 tab 05/31/21 [Rx Last Taken Unknown] trazodone 50 mg tablet 75 mg PO QHS #90 tab 05/31/21 [Rx Last Taken Unknown] blood sugar diagnostic #100 ea 06/09/21 [Rx Last Taken Unknown] cholecalciferol (vitamin D3) 125 mcg (5,000 unit) capsule 125 mcg PO DAILY #90 cap 06/09/21 [Rx Last Taken Unknown] lancets #100 ea 06/09/21 [Rx Last Taken Unknown] melatonin 3 mg tablet 3 mg PO QHS PRN #90 tab 06/09/21 [Rx Last Taken Unknown] amlodipine 5 mg tablet 5 mg PO DAILY #90 tab 06/23/21 [Rx Last Taken Unknown] quetiapine 25 mg tablet 25 mg PO TID #90 tab 07/08/21 [Rx Last Taken Unknown] albuterol sulfate 90 mcg/actuation aerosol inhaler 2 puff INHALATION Q6H PRN #8.5 g 08/10/21 [Rx Last Taken Unknown] pen needle, diabetic 31 gauge x 1/4 #200 ea 08/28/21 [Rx Last Taken Unknown] gabapentin 300 mg capsule 300 mg PO TID #90 cap 09/01/21 [Rx Last Taken Unknown] blood-glucose meter #1 ea 09/23/21 [Rx Last Taken Unknown] flash glucose scanning reader #1 ea 09/23/21 [Rx Last Taken Unknown] flash glucose sensor #2 ea 09/23/21 [Rx Last Taken Unknown] insulin glargine 100 unit/mL (3 mL) subcutaneous pen 75 unit SUBCUT BID 90 Days #135 ml 09/23/21 [Rx Last Taken Unknown] insulin lispro 100 unit/mL subcutaneous pen 25 unit SUBCUT .QID #15 ml 09/23/21 [Rx Last Taken Unknown] Allergy/AdvReac Type Severity Reaction Status Date / Time No Known Allergies Allergy Verified 09/28/21 13:38 Family History (Updated 09/28/21 @ 17:[address] Dorene Guthrie MD) Mother Heart disease Father Heart disease Surgical History (Updated 09/28/21 @ 17:[address] Dorene Guthrie MD) History of exploratory laparotomy S/P AKA (above knee amputation) unilateral S/P BKA (below knee amputation) unilateral Social History (Updated 09/28/21 @ 17:[address] Dorene Guthrie MD) household members: none Smoking Status: Current every day smoker tobacco type: cigarettes Smoking packs per day: 0.25 Smoking cigarettes per day: 5.0 alcohol intake: current alcohol intake frequency: 0-2 drinks per day Alcohol type: beer details: Currently reports drinking only maximum 1 beer daily, prior higher. substance use type: former substance user what type of physical activity do you participate in: none ROS ROS Narrative Admission Review of Systems: CONSTITUTIONAL: No weight loss, fever, chills, + weakness or fatigue. HEENT: Eyes: No visual loss, blurred vision, double vision or yellow sclerae. Ears, Nose, Throat: No hearing loss, sneezing, congestion, runny nose or sore throat. SKIN: No rash or itching, lesions, wounds. CARDIOVASCULAR: + Pleuritic discomfort. No palpitations, edema, orthopnea, syncopal events. RESPIRATORY: + shortness of breath, cough with mild sputum, No wheezing, hemoptysis. GASTROINTESTINAL: + anorexia, No nausea, vomiting or diarrhea, abdominal pain, melena, BRBPR. GENITOURINARY: No dysuria, frequency, urgency or retention. NEUROLOGICAL: No headache, dizziness, syncope, paralysis, ataxia, numbness or tingling in the extremities, focal weakness, change in bowel or bladder control, seizure. MUSCULOSKELETAL: + muscle, back pain, joint pain or stiffness. HEMATOLOGIC: No anemia, bleeding or bruising. LYMPHATICS: No enlarged nodes. No history of splenectomy. PSYCHIATRIC: + history of depression or anxiety. ENDOCRINOLOGIC: No reports of sweating, cold or heat intolerance. No polyuria or polydipsia. ALLERGIES: No history of asthma, hives, eczema or rhinitis. Vital Signs Vital Signs Vital Signs: 09/28/21 13:38 09/28/21 14:19 09/28/21 14:20 Temperature 97.8 F Temperature Source Temporal Pulse Rate 113 H Respiratory Rate 18 Blood Pressure 67/47 L 66/50 L 58/48 L Blood Pressure Mean 53 55 51 Pulse Ox 96 Oxygen Delivery Method Room Air 09/28/21 15:24 09/28/21 15:42 09/28/21 16:33 Temperature Temperature Source Pulse Rate 100 89 Respiratory Rate 18 20 H Blood Pressure 71/55 L 76/57 L 105/54 L Blood Pressure Mean 60 63 71 Pulse Ox 96 98 Oxygen Delivery Method Room Air Room Air Weight Weight: 175 lb Body Mass Index (BMI) 30.0 Physical Exam Narrative Physical Examination: General: Awake, alert, oriented x 3 and cooperative, seated upright in the ED bed in no apparent distress. Skin: Normal color, normal turgor, no icterus, no cyanosis. HEENT: AT/NC, EOMI, PERRLA, dry MM, no carotid bruits or JVD noted. Lungs: Diminished, greater right base, moderate effort, no evidence of any distress no rales, ronchi or wheezing. Heart: Mildly tachycardic with regular rhythm; no gallop, rub audible. Abdomen: Soft, obese, significant midline abdominal scarring, unclear exact surgery but evidence of exploratory laparotomy, no obvious TTP, ND, distant mildly hyperactive BS, no obvious evidence of HSM. Extremities: No cyanosis, clubbing, or edema. Status post right AKA and left BKA evident. Neurological: Patient awake, alert, oriented as noted, cognitive function appears intact but patient is notably a poor historian; pupils equally reactive to light and accommodation, cranial nerves II-XII grossly normal, moving all 4 extremities with amputations as noted, no focal deficits, strength severely global decreased. Psychiatric: Affect appears fatigued otherwise normal, no acute evidence of depressive or anxiety feelings. Results Lab / Micro Data Result Diagrams: 09/28/21 14:43 09/28/21 14:43 Labs: Laboratory Results - last 24 hr 09/28/21 14:43: WBC 12.8 H, RBC 4.54, Hgb 12.4, Hct 37.4, MCV 82.4, MCH 27.3, MCHC 33.2, RDW Std Deviation 56.5 H, RDW Coeff of Thien 19.0 H, Plt Count 295, MPV 10.8, Immature Gran % (Auto) 0.900, Neut % (Auto) 67.7, Lymph % (Auto) 25.6, [place] % (Auto) 3.2, Eos % (Auto) 2.3, Baso % (Auto) 0.3, Absolute Neuts (auto) 8.6 H, Absolute Lymphs (auto) 3.26, Nucleated RBC % 0.2 09/28/21 14:43: Sodium 135 L, Potassium 4.1, Chloride 102, Carbon Dioxide 21.0, Anion Gap 12, BUN 47 H, Creatinine 3.50 H, Estim Creat Clear Calc 15.31, Est GFR (MDRD) Af Amer 17 L, Est GFR (MDRD) Non-Af 14 L, BUN/Creatinine Ratio 13.4, Glu cose 203 H, Calcium 9.6, Total Bilirubin 0.20, AST 14 L, ALT 23, Alkaline Phosphatase 103, Troponin I High Sens 14, Total Protein 8.3 H, Albumin 3.3, Globulin 5.0 H, Albumin/Globulin Ratio 0.7 L, Lipase 130 09/28/21 14:43: Lactic Acid 1.9 09/28/21 15:30: Urine Color Yellow, Urine Clarity Cloudy, Urine pH 5.0, Ur Specific [place] 1.020, Urine Protein 30 H, Urine Glucose (UA) 1000 H, Urine Ke tones 5 H, Urine Occult Blood 25 H, Urine Nitrite Negative, Urine Bilirubin 1 H, Urine Urobilinogen 1 H, Ur Leukocyte Esterase 500 H, Urine RBC 0 SEEN, Urine WBC 5-10 SEEN, Ur Squamous Epith Cells 0-5 SEEN, Ur Transition Epith Cell 0-5 SEEN, Urine Bacteria RARE, Urine Mucus 0 SEEN Radiology Impression Chest X-Ray 09/28/21 14:47 IMPRESSION: Patchy right perihilar infiltrate. 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 #1. Community Acquired Pneumonia with Hypotension, concerning for potential Septic Shock: Currently remains hypotensive, did improve with 1L NS, will discuss with ED administration additional 1.4 L given this would be 30cc/kg, if she remains hypotensive despite completion of this regimen would plan admission to the ICU for pressor usage and Mixing Picker Tender consultation, will maintain on oxygen with wean as tolerated to room air, PRN albuterol, maintained on IV Rocephin and Azithromycin with requested MRSA screen given significant history with alteration of antibiotic therapy if necessary, HOB, IS parameters w/ pending sputum cultures and urine antigens. Bld cx x 2 will also be requested per ED given patient ongoing hypotensive presentation. #2. Acute kidney injury: Secondary to acute presentation as noted #1. Admission BUN/Cr 47/3.50, prior baseline creatinine noted to be most recently 08/10/2021 creatinine 1.0. Will hydrate, hold nephrotoxic medications and repeat chemistry in AM. If no improvement would plan FeNa assessment. #3. Diabetes mellitus type II with neuropathy: Hold oral home regimen, continue home insulin regimen, ADA diet, accu checks w/ ISS, will continue but alter pa tient home gabapentin dosing given #2. HgbA1c requested. #4. History of alcohol abuse: Patient reports prior heavier alcohol abuse, notes currently she only drinks maximum 1 beer daily which was discussed at length and encourage strongly complete sobriety. We will closely monitor as patient certainly could be altering the actual amount she takes in daily. If needed may add CIWA. #5. Anxiety and depression/bipolar disorder/schizoaffective disorder: We will continue patient home trazodone, sertraline, quetiapine regimen however may need to hold if significantly hypotensive or sedate. #6. Chronic pain syndrome: Given patient hypotension will transition to as needed fentanyl for the interim. #7. History of polysubstance abuse: Patient with documented history of prior cocaine use, per discussion likely other agents, will obtain UDS to be cautious #8. Tobacco Abuse: Encouraged cessation, inpatient consultation per RT, NR if desired. #9. Obesity: Weight loss and lifestyle changes encouraged. #10. DVT prophylaxis: SCDs, heparin. #11. CODE status: Patient does not have healthcare power of county attorney nor living will in place. Discussed CODE status at length including difference between FULL code, DNR-CCA and DNR-CC status. Following discussions about the differences in these status, requested Full Code. Amenable to central line if needed. Advanced Care Planning Face to Face Time: 16 minutes. Charges/Coding Visit Charges Inpatient E&M: 20226 Init Hosp L3 Procedures Hospitalists Procedures: 93177 Advncd Care Plan 30 Min
--- NOTE | 2021-09-28 16:48 | NURSING ---
DR SANTOS FOR DR GALLAGHER
--- NOTE | 2021-09-28 16:59 | NURSING ---
MED SURG WHITE PNEUMONIA, RICHARDSON
[2021-09-28 17:45] LABS: Magnesium 1.5 mg/dL (1.6-2.6); Phosphorus 2.8 mg/dL (2.5-4.9)
[2021-09-28] MEDS: 0.9% Normal Saline 1,000 ML 1400 ML IV (18:12)
--- NOTE | 2021-09-28 19:06 | NURSING ---
CHANGED TO PCU 129
[2021-09-28] MEDS: 0.9% Normal Saline 1,000 ML 125 ML IV (20:40)
[2021-09-28] MEDS: Heparin Injection (Vial) 5,000 UNIT/ML VIAL 5000 UNIT SC (21:13)
[2021-09-28] MEDS: Insulin Lispro 100 UNIT/ML INSULN.PEN SC (21:17)
[2021-09-28] MEDS: Atorvastatin Calcium 40 MG Tablet PO (21:24)
[2021-09-28 21:30] LABS: Bedside Glucose 265 mg/dL (70-110)
[2021-09-28] MEDS: traZODone 50 MG Tablet 75 MG PO (21:40)
[2021-09-28] MEDS: Gabapentin 100 MG Capsule PO (21:40)
[2021-09-28] MEDS: QUEtiapine 25 MG Tablet PO (21:40)
[2021-09-29 00:09] LABS: M R Staph aureus DNA By PCR Negative (Negative); Probe Check PASS; Specimen Processing Control PASS
[2021-09-29 03:00] VITALS: BP 106/61; PULSE 81; PULSE 82; RESP 12; TEMP 36.4; O2SAT 93
--- NOTE | 2021-09-29 04:26 | PCS.PANDOC ---
PANDEMIC DOCUMENTATION INITIATED: Date: 05/30/2021 Time: 190
--- NOTE | 2021-09-29 04:27 | NURSING ---
This RN taking over care of pt at this time.
[2021-09-29] MEDS: 0.9% Normal Saline 1,000 ML 125 ML IV ×2 (04:50→13:17)
[2021-09-29] MEDS: Insulin Lispro 100 UNIT/ML INSULN.PEN SC ×2 (05:59→11:05)
[2021-09-29] MEDS: QUEtiapine 25 MG Tablet PO ×2 (06:00→13:18)
[2021-09-29 06:06] LABS: Bedside Glucose 374 mg/dL (70-110)
[2021-09-29 06:39] LABS: Absolute Lymphocyte Count 2.75 X10^3/uL (0.83-4.51); Absolute Neutrophil Count 5.1 X10^3/uL (2.0-7.7); Basophil# 0.04 X10^3/uL; Basophil% 0.5 % (0-1); Eosinophil# 0.27 X10^3/uL; Eosinophils% 3.1 % (0-5); Lymphocyte # 2.75 X10^3/ul (0.83-4.51); Lymphocyte % 31.9 % (19-41); Mean Corp Hgb Conc 34.4 g/dL (32-36); Mean Corpuscular Hgb 27.2 pg (27.0-32.0); Mean Corpuscular Volume 79.2 fL (81-99); Mean Platelet Vol. 11.1 fl (6.2-12.0); Monocyte# 0.38 X10^3/uL; Monocyte% 4.4 % (0-10); NRBC Flagged by Analyzer 0 % (0-5); Neutrophil # 5.11 X10^3/uL (2.7-7.7); Neutrophil % 59.3 % (47-70); Platelet Count 252 K/mm3 (150-450); RBC Distribution Width CV 18.6 % (11.6-14.6); RBC Distribution Width SD 53.7 fl (35.1-43.9); Red Blood Count 4.04 M/mm3 (4.2-5.4); White Blood Count 8.6 K/mm3 (4.4-11.0)
[2021-09-29 06:54] LABS: ALB/GLOB Ratio 0.6 RATIO (0.9-2.4); AST(SGOT) 9 U/L (15-37); Alanine Aminotransfer ALT/SGPT 18 U/L (13-56); Albumin, Serum 2.6 g/dL (3.2-5.0); Alkaline Phosphatase 83 U/L (45-117); Anion Gap 9 (5-15); BUN 39 mg/dL (7-18); BUN/Creat Ratio 20.4 RATIO (10-20); Calcium,Total 8.4 mg/dL (8.5-10.1); Chloride 111 mmol/L (98-107); Creatinine, Serum 1.91 mg/dL (0.55-1.02); EST Glomerular Filtration Rate 29 mL/min (>60); Est Glom Filt Rate - Afr Amer 35 mL/min (>60); Estimated Creatinine Clearance 28.06 ml/min; Globulin 4.1 g/dL (2.2-4.2); Glucose 387 mg/dL (74-106); Potassium 4.7 mmol/L (3.5-5.1); Protein, Total 6.7 g/dL (6.4-8.2); Sodium Level 137 mmol/L (136-145)
[2021-09-29 07:39] VITALS: O2SAT 93
[2021-09-29 07:46] VITALS: PULSE 86
[2021-09-29 08:04] LABS: Hemoglobin A1c 10.1 % (3.8-5.6)
[2021-09-29 08:19] VITALS: BP 115/59; PULSE 81; RESP 16; TEMP 36.9; O2SAT 97
[2021-09-29] MEDS: Sertraline 100 MG Tablet PO (08:23)
[2021-09-29] MEDS: Heparin Injection (Vial) 5,000 UNIT/ML VIAL 5000 UNIT SC (08:23)
[2021-09-29] MEDS: Aspirin E.C. 81 MG Tablet PO (08:23)
[2021-09-29] MEDS: Pantoprazole Sodium 40 MG Tablet PO (08:23)
[2021-09-29] MEDS: Gabapentin 100 MG Capsule PO (08:23)
[2021-09-29] MEDS: Acetaminophen 325 MG Tablet 650 MG PO (08:27)
--- NOTE | 2021-09-29 10:06 | PCM.DC ---
Discharge Instructions Diet Discharge Diet: 1800 Calorie Control Diet Activity Discharge Activity: Return to Normal Activity Dressing / Incision Call your doctor if you observe: Fever of 101 or Higher and Inability to urinate Follow Up Care Test Results: Test results from this visit will be discussed in further detail at your follow-up appointment, if applicable. Discharge Plan Admission Admit Date/Time: 09/28/21 16:53 Primary Reason for Your Visit: RICHARDSON, PNA Attending Provider: Darius Meza Primary Care Provider: Chris Bustamante Discharge Orders/Prescriptions Prescriptions: New gabapentin 100 mg Capsule 300 mg PO BID Qty: 0 RF: 0 levofloxacin 750 mg tablet 750 mg PO Q24H Qty: 5 RF: 0 Continued oxycodone 10 mg tablet 10 mg PO Q6H PRNRF: 0 ibuprofen 800 mg tablet 800 mg PO Q8H PRN (Reason: Pain) RF: 0 magnesium hydroxide [Milk of Magnesia] 400 mg/5 mL suspension 30 ml PO BID PRN (Reason: Constipation) RF: 0 guaifenesin [Mucus Relief] 400 mg tablet 400 mg PO BID RF: 0 sennosides-docusate sodium [Senna Plus] 8.6-50 mg tablet 1 tab-cap PO BID RF: 0 diclofenac sodium 1 % gel 2 g topical BID RF: 0 ondansetron HCl [Zofran] 4 mg tablet 4 mg PO Q6H PRN (Reason: Nausea) RF: 0 albuterol sulfate 90 mcg/actuation HFA aerosol inhaler 2 puff inhalation Q6H PRN (Reason: shortness of breath or wheezing) Qty: 8.5 RF: 2 Jardiance 25 mg tablet 25 mg PO DAILY Qty: 90 RF: 2 atorvastatin 40 mg tablet 40 mg PO QHS Qty: 90 RF: 3 aspirin 81 mg tablet,delayed release (DR/EC) 81 mg PO DAILY Qty: 90 RF: 2 glipizide 10 mg tablet 10 mg PO BID Qty: 180 RF: 2 hydrochlorothiazide 25 mg tablet 25 mg PO DAILY Qty: 90 RF: 2 lisinopril 10 mg tablet 10 mg PO DAILY Qty: 90 RF: 2 omeprazole 40 mg capsule,delayed release(DR/EC) 40 mg PO DAILY Qty: 90 RF: 3 sertraline 100 mg tablet 100 mg PO DAILY Qty: 90 RF: 2 trazodone 50 mg tablet 75 mg PO QHS Qty: 90 RF: 2 cholecalciferol (vitamin D3) 125 mcg (5,000 unit) capsule 125 mcg PO DAILY Qty: 90 RF: 1 melatonin 3 mg tablet 3 mg PO QHS PRN (Reason: sleep) Qty: 90 RF: 0 amlodipine 5 mg tablet 5 mg PO DAILY Qty: 90 RF: 2 quetiapine 25 mg tablet 25 mg PO TID Qty: 90 RF: 3 Lantus Solostar U-100 Insulin 100 unit/mL (3 mL) insulin pen 75 unit subcut BID 90 Days Qty: 135 RF: 2 insulin lispro 100 unit/mL insulin pen 25 unit subcut .QID Qty: 15 RF: 2 Held metformin 1,000 mg tablet 1,000 mg PO BID Qty: 180 RF: 3 Hold Instructions: Resume on 10/01/21. No Action (DME) Blood Glucose Test Strip See Rx Instructions .ROUTE .MEDSUPPLY Qty: 100 RF: 3 (DME) lancets [Fingerstix Lancets] Misc See Rx Instructions .ROUTE .MEDSUPPLY Qty: 100 RF: 0 (DME) pen needle, diabetic [Lite Touch Insulin Pen [place]] 31 gauge x 1/4 needle See Rx Instructions .ROUTE .MEDSUPPLY Qty: 200 RF: 3 gabapentin 300 mg capsule 300 mg PO TID Qty: 90 RF: 2 (DME) blood-glucose meter Misc See Rx Instructions .ROUTE .MEDSUPPLY Qty: 1 RF: 0 (DME) FreeStyle Kory 2 [place] Misc See Rx Instructions .ROUTE .MEDSUPPLY Qty: 1 RF: 0 (DME) FreeStyle Kory 2 Sensor Kit See Rx Instructions .ROUTE .MEDSUPPLY Qty: 2 RF: 3 Referrals / Follow Up: Chris Bustamante MD [Primary Care Provider] - Disposition Disposition (needs filled in before D/C Order can be placed): Home, Self Care
[2021-09-29] MEDS: Ceftriaxone 1 GM/50 ML BAG IV (10:15)
--- NOTE | 2021-09-29 10:16 | DS.PCM_ITS ---
Documented by User: SEVERO Alvarado 09/29/21 10:25 Providers Date of Admission: 09/28/21 Primary Care Physician: Dr. Chris Bustamante MD Reason For Visit: PNA RICHARDSON Diagnosis Discharge Diagnosis (1) Community acquired pneumonia: Status: Acute Code(s): J18.9 - Pneumonia, unspecified organism Qualifiers: Laterality: right Lung location: unspecified part of lung Qualified Code(s): J18.9 - Pneumonia, unspecified organism (2) Acute kidney injury: Status: Acute Code(s): N17.9 - Acute kidney failure, unspecified Medications at Discharge Home Medications diclofenac sodium 1 % topical gel 2 g TOPICAL BID g 04/28/21 guaifenesin 400 mg tablet 400 mg PO BID tab 04/28/21 ibuprofen 800 mg tablet 800 mg PO Q8H PRN 04/28/21 magnesium hydroxide 400 mg/5 mL oral suspension 30 ml PO BID PRN ml 04/28/21 ondansetron HCl 4 mg tablet 4 mg PO Q6H PRN 04/28/21 sennosides 8.6 mg-docusate sodium 50 mg tablet 1 tab-cap PO BID tab 04/28/21 oxycodone 10 mg tablet 10 mg PO Q6H PRN 05/26/21 aspirin 81 mg tablet,delayed release 81 mg PO DAILY #90 tab 05/31/21 atorvastatin 40 mg tablet 40 mg PO QHS #90 tab 05/31/21 empagliflozin 25 mg tablet 25 mg PO DAILY #90 tab 05/31/21 glipizide 10 mg tablet 10 mg PO BID #180 tab 05/31/21 hydrochlorothiazide 25 mg tablet 25 mg PO DAILY #90 tab 05/31/21 lisinopril 10 mg tablet 10 mg PO DAILY #90 tab 05/31/21 metformin 1,000 mg tablet 1,000 mg PO BID #180 tab 05/31/21 omeprazole 40 mg capsule,delayed release 40 mg PO DAILY #90 cap 05/31/21 sertraline 100 mg tablet 100 mg PO DAILY #90 tab 05/31/21 trazodone 50 mg tablet 75 mg PO QHS #90 tab 05/31/21 blood sugar diagnostic #100 ea 06/09/21 cholecalciferol (vitamin D3) 125 mcg (5,000 unit) capsule 125 mcg PO DAILY #90 cap 06/09/21 lancets #100 ea 06/09/21 melatonin 3 mg tablet 3 mg PO QHS PRN #90 tab 06/09/21 amlodipine 5 mg tablet 5 mg PO DAILY #90 tab 06/23/21 quetiapine 25 mg tablet 25 mg PO TID #90 tab 07/08/21 albuterol sulfate 90 mcg/actuation aerosol inhaler 2 puff INHALATION Q6H PRN #8.5 g 08/10/21 pen needle, diabetic 31 gauge x 1/4 #200 ea 08/28/21 gabapentin 300 mg capsule 300 mg PO TID #90 cap 09/01/21 blood-glucose meter #1 ea 09/23/21 flash glucose scanning reader #1 ea 09/23/21 flash glucose sensor #2 ea 09/23/21 insulin glargine 100 unit/mL (3 mL) subcutaneous pen 75 unit SUBCUT BID 90 Days #135 ml 09/23/21 insulin lispro 100 unit/mL subcutaneous pen 25 unit SUBCUT .QID #15 ml 09/23/21 gabapentin 300 mg PO BID #0 cap 09/29/21 levofloxacin 750 mg PO Q24H #5 tab 09/29/21 Hospital Course Operations None Procedures None Summary of Care Provided Minutes Spent on Discharge: 20 Hospital Course: Patient is a 56-year-old female who was admitted with co mplaints of shortness of breath, cough and decreased appetite. Patient was also noted to have acute kidney injury upon initial evaluation in ER. Patient was hypotensive at the time of the admission but resolved with IV fluid administration. Repeat labs completed 09/29/2021 shows improved BUN and creatinine. Patient chest x-ray demonstrates right infiltrate. Patient will be discharged home on p.o. Levaquin for community-acquired pneumonia. Patient also instructed to increase fluid intake to prevent dehydration. Patient will be discharged with instructions to follow-up with her primary care provider in 1 to 2 weeks. Patient should have repeat BMP to monitor kidney function within the n ext 2 to 3 days. Physical Exam Const alert, oriented x3 and no apparent distress General Appearance: cooperative HEENT normocephalic Eyes conjunctivae normal and no scleral icterus Neck supple General: trachea midline Resp normal respiratory effort and normal air movement Auscultation: wheezes scattered wheezes Cardio regular rate, regular rhythm, S1 normal heart sound and S2 normal heart sound GI normal to inspection, nondistended, normoactive bowel sounds, soft to palpation and non-tender Extremity normal capillary refill and no clubbing, cyanosis or edema General Extremity: no tenderness to palpation of joints or extremities Skin skin turgor normal General Skin Exam: no breakdown Lesions: no lesions Rashes: no rashes Neuro oriented x3, moves all extremities, no focal motor deficits and no sensory deficits noted Psych affect normal Appearance: appropriate Weight / BMI Weight Weight: 180 lb 12.465 oz Body Mass Index (BMI) 30.4 ABG / Lab / Microbiology Data Result Diagrams: 09/29/21 06:28 09/29/21 06:28 Laboratory: Laboratory Results - last 24 hr 09/28/21 14:32: COVID-19 ([facility]) Not Detected 09/28/21 14:43: WBC 12.8 H, RBC 4.54, Hgb 12.4, Hct 37.4, MCV 82.4, MCH 27.3, MCHC 33.2, RDW Std Deviation 56.5 H, RDW Coeff of Thien 19.0 H, Plt Count 295, MPV 10.8, Immature Gran % (Auto) 0.900, Neut % (Auto) 67.7, Lymph % (Auto) 25.6, Mcmullen % (Auto) 3.2, Eos % (Auto) 2.3, Baso % (Auto) 0.3, Absolute Neuts (auto) 8.6 H, Absolute Lymphs (auto) 3.26, Nucleated RBC % 0.2 09/28/21 14:43: Sodium 135 L, Potassium 4.1, Chloride 102, Carbon Dioxide 21.0, Anion Gap 12, BUN 47 H, Creatinine 3.50 H, Estim Creat Clear Calc 15.31, Est GFR (MDRD) Af Amer 17 L, Est GFR (MDRD) Non-Af 14 L, BUN/Creatinine Ratio 13.4, Glucose 203 H, Calcium 9.6, Total Bilirubin 0.20, AST 14 L, ALT 23, Alkaline Phosphatase 103, Troponin I High Sens 14, Total Protein 8.3 H, Albumin 3.3, Globulin 5.0 H, Albumin/Globulin Ratio 0.7 L, Lipase 130 09/28/21 14:43: Lactic Acid 1.9 09/28/21 14:43: Phosphorus 2.8, Magnesium 1.5 L 09/28/21 15:30: Urine Color Yellow, Urine Clarity Cloudy, Urine pH 5.0, Ur Specific [place] 1.020, Urine Protein 30 H, Urine Glucose (UA) 1000 H, Urine Ketones 5 H, Urine Occult Blood 25 H, Urine Nitrite Negative, Urine Bilirubin 1 H, Urine Urobilinogen 1 H, Ur Leukocyte Esterase 500 H, Urine RBC 0 SEEN, Urine WBC 5-10 SEEN, Ur Squamous Epith Cells 0-5 SEEN, Ur Transition Epith Cell 0-5 S EEN, Urine Bacteria RARE, Urine Mucus 0 SEEN 09/28/21 20:32: MRSA (PCR) Negative 09/28/21 21:12: POC Glucose 265 H 09/29/21 05:58: POC Glucose 374 H 09/29/21 06:28: WBC 8.6, RBC 4.04 L, Hgb 11.0 L, Hct 32.0 L, MCV 79.2 L, MCH 27.2, MCHC 34.4, RDW Std Deviation 53.7 H, RDW Coeff of Thien 18.6 H, Plt Count 252, MPV 11.1, Immature Gran % (Auto) 0.800, Neut % (Auto) 59.3, Lymph % (Auto) 31.9, Mcmullen % (Auto) 4.4, Eos % (Auto) 3.1, Baso % (Auto) 0.5, Absolute Neuts (auto) 5.1, Absolute Lymphs (auto) 2.75, Nucleated RBC % 0 09/29/21 06:28: Sodium 137, Potassium 4.7, Chloride 111 H, Carbon Dioxide 17.0 L , Anion Gap 9, BUN 39 H, Creatinine 1.91 H, Estim Creat Clear Calc 28.06, Est GFR (MDRD) Af Amer 35 L, Est GFR (MDRD) Non-Af 29 L, BUN/Creatinine Ratio 20.4 H , Glucose 387 H, Calcium 8.4 L, Total Bilirubin 0.20, AST 9 L, ALT 18, Alkaline Phosphatase 83, Total Protein 6.7, Albumin 2.6 L, Globulin 4.1, Albumin/Globulin Ratio 0.6 L 09/29/21 06:28: Hemoglobin A1c 10.1 H Microbiology: Microbiology 09/28/21 20:36 Mucosa - Nasopharyngeal Respiratory Panel (PCR) - Final 09/28/21 15:50 Urine Catheter - Catheter Legionella Antigen - Final 09/28/21 15:50 Urine Catheter - Catheter Streptococcus pneumoniae Antigen (M - Final Radiography Diagnostic Testing: Radiology Impression Chest X-Ray 09/28/21 14:47 IMPRESSION: Patchy right perihilar infiltrate. Electronically Signed: Hamilton Blandon MD at 15:09 EST , Service support , D/C Instructions Discharge Diet: 1800 Calorie Control Diet Call your doctor if you observe: Fever of 101 or Higher and Inability to urinate Meaningful Use Info Meaningful Use Diagnoses (Choose all that apply): None applicable Discharge Plan Admission Admit Date/Time: 09/28/21 16:53 Primary Reason for Your Visit: RICHARDSON, PNA Attending Provider: Darius Meza Primary Care Provider: Chris Bustamante Discharge Orders/Prescriptions Prescriptions: New gabapentin 100 mg Capsule 300 mg PO BID Qty: 0 RF: 0 levofloxacin 750 mg tablet 750 mg PO Q24H Qty: 5 RF: 0 Continued oxycodone 10 mg tablet 10 mg PO Q6H PRNRF: 0 ibuprofen 800 mg tablet 800 mg PO Q8H PRN (Reason: Pain) RF: 0 magnesium hydroxide [Milk of Magnesia] 400 mg/5 mL suspension 30 ml PO BID PRN (Reason: Constipation) RF: 0 guaifenesin [Mucus Relief] 400 mg tablet 400 mg PO BID RF: 0 sennosides-docusate sodium [Senna Plus] 8.6-50 mg tablet 1 tab-cap PO BID RF: 0 diclofenac sodium 1 % gel 2 g topical BID RF: 0 ondansetron HCl [Zofran] 4 mg tablet 4 mg PO Q6H PRN (Reason: Nausea) RF: 0 albuterol sulfate 90 mcg/actuation HFA aerosol inhaler 2 puff inhalation Q6H PRN (Reason: shortness of breath or wheezing) Qty: 8.5 RF: 2 Jardiance 25 mg tablet 25 mg PO DAILY Qty: 90 RF: 2 atorvastatin 40 mg tablet 40 mg PO QHS Qty: 90 RF: 3 aspirin 81 mg tablet,delayed release (DR/EC) 81 mg PO DAILY Qty: 90 RF: 2 glipizide 10 mg tablet 10 mg PO BID Qty: 180 RF: 2 hydrochlorothiazide 25 mg tablet 25 mg PO DAILY Qty: 90 RF: 2 lisinopril 10 mg tablet 10 mg PO DAILY Qty: 90 RF: 2 omeprazole 40 mg capsule,delayed release(DR/EC) 40 mg PO DAILY Qty: 90 RF: 3 sertraline 100 mg tablet 100 mg PO DAILY Qty: 90 RF: 2 trazodone 50 mg tablet 75 mg PO QHS Qty: 90 RF: 2 cholecalciferol (vitamin D3) 125 mcg (5,000 unit) capsule 125 mcg PO DAILY Qty: 90 RF: 1 melatonin 3 mg tablet 3 mg PO QHS PRN (Reason: sleep) Qty: 90 RF: 0 amlodipine 5 mg tablet 5 mg PO DAILY Qty: 90 RF: 2 quetiapine 25 mg tablet 25 mg PO TID Qty: 90 RF: 3 Lantus Solostar U-100 Insulin 100 unit/mL (3 mL) insulin pen 75 unit subcut BID 90 Days Qty: 135 RF: 2 insulin lispro 100 unit/mL insulin pen 25 unit subcut .QID Qty: 15 RF: 2 Held metformin 1,000 mg tablet 1,000 mg PO BID Qty: 180 RF: 3 Hold Instructions: Resume on 10/01/21. No Action (DME) Blood Glucose Test Strip See Rx Instructions .ROUTE .MEDSUPPLY Qty: 100 RF: 3 (DME) lancets [Fingerstix Lancets] Misc See Rx Instructions .ROUTE .MEDSUPPLY Qty: 100 RF: 0 (DME) pen needle, diabetic [Lite Touch Insulin Pen Zirconia] 31 gauge x 1/4 needle See Rx Instructions .ROUTE .MEDSUPPLY Qty: 200 RF: 3 gabapentin 300 mg capsule 300 mg PO TID Qty: 90 RF: 2 (DME) blood-glucose meter Misc See Rx Instructions .ROUTE .MEDSUPPLY Qty: 1 RF: 0 (DME) FreeStyle Kory 2 Osseo Misc See Rx Instructions .ROUTE .MEDSUPPLY Qty: 1 RF: 0 (DME) FreeStyle Kory 2 Sensor Kit See Rx Instructions .ROUTE .MEDSUPPLY Qty: 2 RF: 3 Referrals / Follow Up: Chris Bustamante MD [Primary Care Provider] - Disposition Disposition (needs filled in before D/C Order can be placed): Home, Self Care Documented by User: Dr. Darius Meza MD 09/29/21 11:33 Providers Date of Admission: 09/28/21 Reason For Visit: PNA RICHARDSON Medications at Discharge Home Medications diclofenac sodium 1 % topical gel 2 g TOPICAL BID g 04/28/21 guaifenesin 400 mg tablet 400 mg PO BID tab 04/28/21 ibuprofen 800 mg tablet 800 mg PO Q8H PRN 04/28/21 magnesium hydroxide 400 mg/5 mL oral suspension 30 ml PO BID PRN ml 04/28/21 ondansetron HCl 4 mg tablet 4 mg PO Q6H PRN 04/28/21 sennosides 8.6 mg-docusate sodium 50 mg tablet 1 tab-cap PO BID tab 04/28/21 oxycodone 10 mg tablet 10 mg PO Q6H PRN 05/26/21 aspirin 81 mg tablet,delayed release 81 mg PO DAILY #90 tab 05/31/21 atorvastatin 40 mg tablet 40 mg PO QHS #90 tab 05/31/21 empagliflozin 25 mg tablet 25 mg PO DAILY #90 tab 05/31/21 glipizide 10 mg tablet 10 mg PO BID #180 tab 05/31/21 hydrochlorothiazide 25 mg tablet 25 mg PO DAILY #90 tab 05/31/21 lisinopril 10 mg tablet 10 mg PO DAILY #90 tab 05/31/21 metformin 1,000 mg tablet 1,000 mg PO BID #180 tab 05/31/21 omeprazole 40 mg capsule,delayed release 40 mg PO DAILY #90 cap 05/31/21 sertraline 100 mg tablet 100 mg PO DAILY #90 tab 05/31/21 trazodone 50 mg tablet 75 mg PO QHS #90 tab 05/31/21 blood sugar diagnostic #100 ea 06/09/21 cholecalciferol (vitamin D3) 125 mcg (5,000 unit) capsule 125 mcg PO DAILY #90 cap 06/09/21 lancets #100 ea 06/09/21 melatonin 3 mg tablet 3 mg PO QHS PRN #90 tab 06/09/21 amlodipine 5 mg tablet 5 mg PO DAILY #90 tab 06/23/21 quetiapine 25 mg tablet 25 mg PO TID #90 tab 07/08/21 albuterol sulfate 90 mcg/actuation aerosol inhaler 2 puff INHALATION Q6H PRN #8.5 g 08/10/21 pen needle, diabetic 31 gauge x 1/4 #200 ea 08/28/21 gabapentin 300 mg capsule 300 mg PO TID #90 cap 09/01/21 blood-glucose meter #1 ea 09/23/21 flash glucose scanning reader #1 ea 09/23/21 flash glucose sensor #2 ea 09/23/21 insulin glargine 100 unit/mL (3 mL) subcutaneous pen 75 unit SUBCUT BID 90 Days #135 ml 09/23/21 insulin lispro 100 unit/mL subcutaneous pen 25 unit SUBCUT .QID #15 ml 09/23/21 gabapentin 300 mg PO BID #0 cap 09/29/21 levofloxacin 750 mg PO Q24H #5 tab 09/29/21 Hospital Course Operations None Summary of Care Provided Hospital Course: This patient was seen in conjunction with SEVERO Alvarado . I have independently interviewed and examined the patient and reviewed pertinent historical, laboratory, and other data. Please refer to SEVERO Edmond note for details of this patient's presentation, findings, and recommendations. I have reviewed SEVERO Alvarado note and concur with documented findings. In brief, patient is a 56-year-old lady admitted with progressive generalized weakness. Imaging studies obtained on admission demonstrated right lower lobe infiltrate. Admitted to regular nursing floor as a case of community-acquired pneumonia. Patient was seen a day after her admission she was not requiring oxygen had no fever WBC count within normal limit. Decision was therefore made to discharge patient Hospital course: As documented above ABG / Lab / Microbiology Data Result Diagrams: 09/29/21 06:28 09/29/21 06:28 Discharge Plan Admission Admit Date/Time: 09/28/21 16:53 Primary Reason for Your Visit: RICHARDSON, PNA Attending Provider: Darius Meza Primary Care Provider: Chris Bustamante Discharge Orders/Prescriptions Prescriptions: New gabapentin 100 mg Capsule 300 mg PO BID Qty: 0 RF: 0 levofloxacin 750 mg tablet 750 mg PO Q24H Qty: 5 RF: 0 Continued oxycodone 10 mg tablet 10 mg PO Q6H PRNRF: 0 ibuprofen 800 mg tablet 800 mg PO Q8H PRN (Reason: Pain) RF: 0 magnesium hydroxide [Milk of Magnesia] 400 mg/5 mL suspension 30 ml PO BID PRN (Reason: Constipation) RF: 0 guaifenesin [Mucus Relief] 400 mg tablet 400 mg PO BID RF: 0 sennosides-docusate sodium [Senna Plus] 8.6-50 mg tablet 1 tab-cap PO BID RF: 0 diclofenac sodium 1 % gel 2 g topical BID RF: 0 ondansetron HCl [Zofran] 4 mg tablet 4 mg PO Q6H PRN (Reason: Nausea) RF: 0 albuterol sulfate 90 mcg/actuation HFA aerosol inhaler 2 puff inhalation Q6H PRN (Reason: shortness of breath or wheezing) Qty: 8.5 RF: 2 Jardiance 25 mg tablet 25 mg PO DAILY Qty: 90 RF: 2 atorvastatin 40 mg tablet 40 mg PO QHS Qty: 90 RF: 3 aspirin 81 mg tablet,delayed release (DR/EC) 81 mg PO DAILY Qty: 90 RF: 2 glipizide 10 mg tablet 10 mg PO BID Qty: 180 RF: 2 hydrochlorothiazide 25 mg tablet 25 mg PO DAILY Qty: 90 RF: 2 lisinopril 10 mg tablet 10 mg PO DAILY Qty: 90 RF: 2 omeprazole 40 mg capsule,delayed release(DR/EC) 40 mg PO DAILY Qty: 90 RF: 3 sertraline 100 mg tablet 100 mg PO DAILY Qty: 90 RF: 2 trazodone 50 mg tablet 75 mg PO QHS Qty: 90 RF: 2 cholecalciferol (vitamin D3) 125 mcg (5,000 unit) capsule 125 mcg PO DAILY Qty: 90 RF: 1 melatonin 3 mg tablet 3 mg PO QHS PRN (Reason: sleep) Qty: 90 RF: 0 amlodipine 5 mg tablet 5 mg PO DAILY Qty: 90 RF: 2 quetiapine 25 mg tablet 25 mg PO TID Qty: 90 RF: 3 Lantus Solostar U-100 Insulin 100 unit/mL (3 mL) insulin pen 75 unit subcut BID 90 Days Qty: 135 RF: 2 insulin lispro 100 unit/mL insulin pen 25 unit subcut .QID Qty: 15 RF: 2 Held metformin 1,000 mg tablet 1,000 mg PO BID Qty: 180 RF: 3 Hold Instructions: Resume on 10/01/21. No Action (DME) Blood Glucose Test Strip See Rx Instructions .ROUTE .MEDSUPPLY Qty: 100 RF: 3 (DME) lancets [Fingerstix Lancets] Misc See Rx Instructions .ROUTE .MEDSUPPLY Qty: 100 RF: 0 (DME) pen needle, diabetic [Lite Touch Insulin Pen Zirconia] 31 gauge x 1/4 needle See Rx Instructions .ROUTE .MEDSUPPLY Qty: 200 RF: 3 gabapentin 300 mg capsule 300 mg PO TID Qty: 90 RF: 2 (DME) blood-glucose meter Misc See Rx Instructions .ROUTE .MEDSUPPLY Qty: 1 RF: 0 (DME) FreeStyle Kory 2 Osseo Misc See Rx Instructions .ROUTE .MEDSUPPLY Qty: 1 RF: 0 (DME) FreeStyle Kory 2 Sensor Kit See Rx Instructions .ROUTE .MEDSUPPLY Qty: 2 RF: 3 Referrals / Follow Up: Chris Bustamante MD [Primary Care Provider] - Disposition Disposition (needs filled in before D/C Order can be placed): Home, Self Care Charges/Coding Visit Charges OBSV E&M: 28083 Observation care discharge Hospital Course Operations None
[2021-09-29 11:10] LABS: Bedside Glucose 337 mg/dL (70-110)
[2021-09-29 13:14] VITALS: BP 107/62; PULSE 82; RESP 16; TEMP 36.7; O2SAT 95
--- NOTE | 2021-09-29 13:31 | CASEMGMT ---
Addendum entered by Rachele Lee 09/29/21 15:02: Pt states she thought she had an appt w/Dr Adrian today @ 2:[address] Moreno's office. Per escrow secretary, pt did not have an appt w/them today. Her next appt w/Dr Adrian is scheduled for 10/12 @ 3:45 PM. Pt made aware. Noted in [facility], that pt had an OP appt today @ 1415 for Mammogram. TC to Mammography and they were made aware pt did not make it to her appt today d/t she is admitted to [facility]. Pt made aware she is to call them to reschedule Mammogram at a later date. Addendum entered by Rachele Lee 09/29/21 14:49: JOSE COLLADO NOTE: Pt made aware [facility] able to accept for PT/OT and SOC slated for tomorrow. Pt voices appreciation. She denies having other discharge planning needs. She states she had an appt today @ 1415 w/ Addendum entered by Rachele Lee 09/29/21 14:21: Message received from Mic @ [facility]. They are not able to accept pt. TC to [facility]--they are not accepting new skilled pt's at this time. TC to Joy @ [address] [place] [address]--they are able to accept pt for PT/OT only. They do not have SN available on-going services, but SN does need to be included in order, as SN will need to see pt to open for therapy, per Joy. She was made aware pt is discharging home today. SOC slated for tomorrow. Referral packet faxed to [address] [place] [address] at this time. Original Note: JOSE COLLADO NOTE: PT/OT evals done and additional therapy recommended. JOSE COLLADO to room to discuss discharge planning. Pt adamantly shakes her head and stated No very firmly when JOSE COLLADO inquired if she would like to go to a SNF. Discussed option of HHC and pt agreeable, stating, I'll take all the help I can get. Pt was provided with list of [facility] providers including quality and resource use data and consistent with the patient's preferred geographic region, medical needs, and insurance network. The pt's states she has no preference. TC to the following, who were unable to accept pt d/t staffing in [facility]: Miguel Burciaga, [place], and . TC to Mic @ [facility] and referral made. Referral packet faxed. Mic states it will be reviewed to determine if they are able to accept pt and will call RN CM back w/an answer. She is aware pt is discharging home today. Edson FRIEDMANN RN CM
[2021-09-29 14:28] VITALS: PULSE 83
--- NOTE | 2021-09-29 14:43 | CASEMGMT ---
NAUN spoke with patient this am. NAUN introduced self and role at [facility]. SW asked patient if she has heard of the waiver program. Patient said she is on the waiver program. SW asked who her case specialist is and she said his name is Rocio. That is all she could remember. She called her daughter on her cell phone to ask. Her daughter answered (patient had her on speaker phone) and she sounded irritated as was evidenced by the tone of her voice. 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 She said she cannot talk. Patient said she needs assistance getting to and from doctor's appts and she could use help at home. SW told her SW will try and figure out who her case specialist is and try and talk with him. After calling several Medicaid numbers NAUN was able to find out patient is active with [employer] for her waiver. Patient's case specialist is Rocio Mandujanorachmichele. His number is [phone]. NAUN called this number and left a voice mail requesting a return call. NAUN did not leave any patient identifying information on the voice mail as there was no identifier on the voice mail. Rebecca Harley [employer]
== END 2021-09-29 10:16 | disposition home health service (06) ==
LOC: ED 16:53 → PCU 19:06
PROVIDERS: Admitting Provider Family Medicine; Emergency Provider Emergency Medicine; PCP Internal Medicine; Visit Provider Internal Medicine
DX: J18.9 Pneumonia, unspecified organism (principal); E11.51 Type 2 diabetes mellitus with diabetic peripheral angiopathy without gangrene; F25.0 Schizoaffective disorder, bipolar type; Z89.512 Acquired absence of left leg below knee; Z89.511 Acquired absence of right leg below knee; N17.9 Acute kidney failure, unspecified; F10.20 Alcohol dependence, uncomplicated; F14.11 Cocaine abuse, in remission; E11.40 Type 2 diabetes mellitus with diabetic neuropathy, unspecified; Z79.4 Long term (current) use of insulin; G89.4 Chronic pain syndrome; E78.5 Hyperlipidemia, unspecified; K21.9 Gastro-esophageal reflux disease without esophagitis; E55.9 Vitamin D deficiency, unspecified; I10 Essential (primary) hypertension; F17.210 Nicotine dependence, cigarettes, uncomplicated; E66.9 Obesity, unspecified; F41.9 Anxiety disorder, unspecified; R35.89 Other polyuria; Z79.899 Other long term (current) drug therapy; Z79.82 Long term (current) use of aspirin; Z68.30 Body mass index [BMI] 30.0-30.9, adult
CPT/HCPCS: J2405; P9612; 36415; 71045; 80053; 81001; 82962; 83036; 83605; 83690; 83735; 84100; 84484; 85025; 87449; 87633; 87635; 87641; 93005; 96361; 96365; 96366; 96367; 96372; 96375; 97162; 97166; 99218; 99251; 99285; J7030; U0005; A4216; G0378; G0463; U0003

== ENCOUNTER 2021-10-13 06:08 | Observation (INO) | payer MEDICAID, SELFPAY ==
[2021-10-13] VITALS (20 sets, daily range): BP systolic 73–132; BP diastolic 45–99; PULSE 80–118; RESP 16–22; TEMP 35.8–38.7; O2SAT 82–99; BMI 30.4; BMI 31.9
--- NOTE | 2021-10-13 06:25 | CT_ITS ---
INDICATION: abd pain EXAMINATION: CT ABDOMEN AND PELVIS WITH CONTRAST - CT Abdomen And Pelvis W/ Contrast Injection TECHNIQUE: Helically acquired images were obtained of the abdomen and pelvis following IV contrast. A radiation dose optimization technique was used for this scan. IV Contrast dosage and agent: 100 mL of [id number]. Oral contrast: None. COMPARISON: None 05/09/2021. FINDINGS: LOWER CHEST: Lung bases are clear. No cardiomegaly or pericardial effusion. LIVER: Homogeneous. No focal mass. GALLBLADDER AND BILIARY TREE: No calcified gallstones. No gallbladder distension or wall edema. No intra- or extrahepatic biliary ductal dilation. PANCREAS: No focal cystic or solid mass. SPLEEN: Normal size without focal cystic or solid mass. ADRENAL GLANDS: No nodules. KIDNEYS AND URETERS: Normal renal size and position. No hydronephrosis. PERITONEUM: No ascites or free air. No other fluid collection. BOWEL: No evidence of acute appendicitis. No stomach or bowel distension. No focal inflammatory change. Fluid-filled loops of small bowel are seen. LYMPH NODES: No enlarged mesenteric or retroperitoneal lymph nodes. VESSELS: Extensive atherosclerotic calcifications visualized in the abdominal aorta with subtle aneurysm dilatation of the distal 4 cm, abdominal aorta measures 2.8 x 3.1 cm distally and 1.9 x 2.1 cm proximally.. URINARY BLADDER: Unremarkable. REPRODUCTIVE ORGANS: Anteverted anteflexed uterus visualized with nodularities in the fundus suggestive of uterine fibroids. No pelvic masses. ABDOMINAL WALL: Paramedian defect visualized at the level of the umbilicus on the left measuring 1.2 cm with herniation of a segment of the transverse colon visualized seen on axial series 2 image 70, no evidence of stranding of the adjacent fat planes is seen. On axial series 2 image 68 there is a 0.7 cm defect visualized this herniation of the wall of a segment of the transverse colon. BONES: Degenerative bone changes seen most prominent at L5-S1. CT/Abdomen/Pelvis W IV Cont ONLY IMPRESSION: To anterior abdominal wall defects visualized with herniation of height bowel visualized, no evidence of stranding of the adjacent fat planes no evidence of significant wall thickening, no evidence of incarceration is seen. Scattered diverticular disease but no evidence of acute diverticulitis in the large bowel. Focal aneurysmal dilatation of the distal abdominal aorta measuring 3.1 cm in maximal diameter. Degenerative bone changes. Electronically Signed: Lance Monteiro MD at 8:25 EST Tel , Service support ,
[2021-10-13] MEDS: 0.9% Normal Saline 1,000 ML 999 ML IV ×2 (06:36→09:08)
[2021-10-13] MEDS: Ondansetron 4 MG/2 ML Vial IV (06:37)
[2021-10-13] MEDS: Morphine 4 MG/ML Syringe IV (06:39)
[2021-10-13 06:40] LABS: Absolute Lymphocyte Count 0.69 X10^3/uL (0.83-4.51); Basophil# 0.03 X10^3/uL; Basophil% 0.2 % (0-1); Hematocrit 36.2 % (37-47); Hemoglobin 11.6 g/dL (12.0-15.0); Lymphocyte # 0.69 X10^3/ul (0.83-4.51); Lymphocyte % 4.6 % (19-41); Mean Corpuscular Volume 81.2 fL (81-99); Mean Platelet Vol. 10.6 fl (6.2-12.0); Monocyte% 0.7 % (0-10); NRBC Flagged by Analyzer 0 % (0-5); Neutrophil # 13.99 X10^3/uL (2.7-7.7); Neutrophil % 93.8 % (47-70); POSITIVE MORPHOLOGY YES; Platelet Count 252 K/mm3 (150-450); RBC Distribution Width CV 19.3 % (11.6-14.6); RBC Distribution Width SD 57.4 fl (35.1-43.9); Red Blood Count 4.46 M/mm3 (4.2-5.4); White Blood Count 14.9 K/mm3 (4.4-11.0)
[2021-10-13 06:42] LABS: Differential Indicated SCAN CRITERIA MET
--- NOTE | 2021-10-13 06:53 | EX.ED.DYSGE1 ---
HPI History of Present Illness Chief Complaint: Abd Pain Narrative Narrative: Patient is a 56-year-old female with past medical history of diabetes as well as bipolar disorder and schizoaffective disorder with past surgical history of bilateral leg amputations. Patient is a poor historian but reports that over the past 2 to 3 days has had generalized abdominal discomfort with bouts of nausea vomiting and diarrhea. She denies any known sick contacts but states that the pain has been increasing and secondary to this presents for evaluation. 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 Alcohol dependence, uncomplicated Atrophy of muscle of multiple sites Bipolar disorder, unspecified Chronic low back pain Chronic neck pain Chronic pain Cocaine abuse, uncomplicated Colon cancer screening COPD (chronic obstructive pulmonary disease) Diabetes Essential (primary) hypertension Flu vaccine need Gastro-esophageal reflux disease without esophagitis History of left below knee amputation History of right above knee amputation Hyperlipidemia, unspecified Hypertension Insomnia, unspecified Insulin dependent diabetes mellitus Major depressive disorder, single episode, unspecified Metabolic encephalopathy Muscle weakness (generalized) Other chronic pain Patient's noncompliance with other medical treatment and regimen Peripheral vascular disease, unspecified Preventative health care Schizoaffective disorder, bipolar type Shortness of breath on exertion Smoker Type 2 diabetes mellitus Type 2 diabetes mellitus without complications Vitamin D deficiency, unspecified Home Medications diclofenac sodium 1 % topical gel 2 g TOPICAL BID g 04/28/21 [History Last Taken Unknown] guaifenesin 400 mg tablet 400 mg PO BID tab 04/28/21 [History Last Taken Unknown] ibuprofen 800 mg tablet 800 mg PO Q8H PRN 04/28/21 [History Last Taken Unknown] magnesium hydroxide 400 mg/5 mL oral suspension 30 ml PO BID PRN ml 04/28/21 [History Last Taken Unknown] ondansetron HCl 4 mg tablet 4 mg PO Q6H PRN 04/28/21 [History Last Taken Unknown] sennosides 8.6 mg-docusate sodium 50 mg tablet 1 tab-cap PO BID tab 04/28/21 [History Last Taken Unknown] oxycodone 10 mg tablet 10 mg PO Q6H PRN 05/26/21 [History Last Taken Unknown] aspirin 81 mg tablet,delayed release 81 mg PO DAILY #90 tab 05/31/21 [Rx Last Taken Unknown] atorvastatin 40 mg tablet 40 mg PO QHS #90 tab 05/31/21 [Rx Last Taken Unknown] empagliflozin 25 mg tablet 25 mg PO DAILY #90 tab 05/31/21 [Rx Last Taken Unknown] glipizide 10 mg tablet 10 mg PO BID #180 tab 05/31/21 [Rx Last Taken Unknown] hydrochlorothiazide 25 mg tablet 25 mg PO DAILY #90 tab 05/31/21 [Rx Last Taken Unknown] lisinopril 10 mg tablet 10 mg PO DAILY #90 tab 05/31/21 [Rx Last Taken Unknown] metformin 1,000 mg tablet 1,000 mg PO BID #180 tab 05/31/21 [Rx Last Taken Unknown] omeprazole 40 mg capsule,delayed release 40 mg PO DAILY #90 cap 05/31/21 [Rx Last Taken Unknown] sertraline 100 mg tablet 100 mg PO DAILY #90 tab 05/31/21 [Rx Last Taken Unknown] trazodone 50 mg tablet 75 mg PO QHS #90 tab 05/31/21 [Rx Last Taken Unknown] blood sugar diagnostic #100 ea 06/09/21 [Rx Last Taken Unknown] cholecalciferol (vitamin D3) 125 mcg (5,000 unit) capsule 125 mcg PO DAILY #90 cap 06/09/21 [Rx Last Taken Unknown] lancets #100 ea 06/09/21 [Rx Last Taken Unknown] melatonin 3 mg tablet 3 mg PO QHS PRN #90 tab 06/09/21 [Rx Last Taken Unknown] amlodipine 5 mg tablet 5 mg PO DAILY #90 tab 06/23/21 [Rx Last Taken Unknown] quetiapine 25 mg tablet 25 mg PO TID #90 tab 07/08/21 [Rx Last Taken Unknown] albuterol sulfate 90 mcg/actuation aerosol inhaler 2 puff INHALATION Q6H PRN #8.5 g 08/10/21 [Rx Last Taken Unknown] pen needle, diabetic 31 gauge x 1/4 #200 ea 08/28/21 [Rx Last Taken Unknown] gabapentin 300 mg capsule 300 mg PO TID #90 cap 09/01/21 [Rx Last Taken Unknown] blood-glucose meter #1 ea 09/23/21 [Rx Last Taken Unknown] flash glucose scanning reader #1 ea 09/23/21 [Rx Last Taken Unknown] flash glucose sensor #2 ea 09/23/21 [Rx Last Taken Unknown] insulin glargine 100 unit/mL (3 mL) subcutaneous pen 75 unit SUBCUT BID 90 Days #135 ml 09/23/21 [Rx Last Taken Unknown] insulin lispro 100 unit/mL subcutaneous pen 25 unit SUBCUT .QID #15 ml 09/23/21 [Rx Last Taken Unknown] gabapentin 300 mg PO BID #0 cap 09/29/21 [Rx Last Taken Unknown] levofloxacin 750 mg PO Q24H #5 tab 09/29/21 [Rx Last Taken Unknown] Allergy/AdvReac Type Severity Reaction Status Date / Time No Known Allergies Allergy Verified 10/13/21 06:12 Family History (Updated 09/28/21 @ 17:[address] Dorene Guthrie MD) Mother Heart disease Father Heart disease Surgical History History of exploratory laparotomy S/P AKA (above knee amputation) unilateral S/P BKA (below knee amputation) unilateral Social History (Updated 09/28/21 @ 17:[address] Dorene Guthrie MD) household members: none Smoking Status: Current every day smoker tobacco type: cigarettes alcohol intake: current alcohol intake frequency: 0-2 drinks per day Alcohol type: beer details: Currently reports drinking only maximum 1 beer daily, prior higher. substance use type: former substance user what type of physical activity do you participate in: none ROS ROS ED Constitutional Constitutional ED: Denies chills or fever(s) ENT ENT ED: Denies sore throat Cardiovascular Cardiovascular: Denies chest pain Respiratory/Chest Respiratory/Chest: Denies cough or dyspnea Gastrointestinal Gastrointestinal: Reports abdominal pain, diarrhea, nausea and vomiting Genitourinary Genitourinary ED: Denies dysuria Musculoskeletal Musculoskeletal: Reports myalgias Integumentary Denies rash Neurologic Neurologic: Denies headache(s) Hematologic/Lymphatic Hematologic/Lymphatic: Denies easy bleeding or easy bruising EXAM Physical Exam Const Vital Signs: 10/13/21 06:10 Temperature 96.5 F L Temperature Source Temporal Pulse Rate 118 H Respiratory Rate 18 Blood Pressure 116/69 Blood Pressure Mean 84 Pulse Ox 92 Oxygen Delivery Method Room Air Positive well nourished, well developed and obese General Appearance ED: well developed Nutritional Appearance: obese HEENT Reports dry mucous membranes Mouth ED: Yes dry mucous membranes Mouth: dry mucous membranes Eyes PERRL and EOMs intact bilaterally Neck supple Chest Wall palpation of chest normal Resp normal respiratory effort and clear to auscultation bilaterally Cardio regular rhythm Rate: tachycardic and other Other Details: Radial pulses are +2-4 bilaterally they are equal and symmetric GI non-distended GI Narrative: Abdomen is soft and nondistended with normoactive bowel sounds. There is mild diffuse pain with palpation but no voluntary guarding or rigidity Auscultation: normoactive bowel sounds Palpation: soft Extremity Extremity Narrative: Patient has a left below the knee amputation and right [id number] amputation. The sites of amputation appear clean dry and intact without secondary infectious changes. Skin turgor slightly increased overall. Neuro oriented x3 and CN's II-XII intact bilaterally Sensorium / Orientation: alert Psych Psych Narrative: Patient has a flat/depressed affect Skin no rashes or lesions noted Skin Narrative: Skin turgor is increased but overall no secondary changes to suggest infection MDM MDM MDM Narrative Medical decision making narrative: Patient presented to the ER mildly tachycardic but afebrile and normotensive. She had diffuse abdominal pain on palpation and history of previous abdominal surgery. She reported vomiting and diarrhea so there was concern for Covid so rapid swab was obtained. Rapid swab was negative. At this time she is pending further laboratory studies and CT scan. The patient will be signed out to the oncoming provider and disposition will be based on the results of the remaining labs and CT scan. Lab Data Labs: Laboratory Results - last 24 hr 10/13/21 06:15 WBC 14.9 H RBC 4.46 Hgb 11.6 L Hct 36.2 L MCV 81.2 MCH 26.0 L MCHC 32.0 RDW Std Deviation 57.4 H RDW Coeff of Thien 19.3 H Plt Count 252 MPV 10.6 Immature Gran % (Auto) 0.700 Neut % (Auto) 93.8 H Lymph % (Auto) 4.6 L [place] % (Auto) 0.7 Eos % (Auto) 0.0 Baso % (Auto) 0.2 Absolute Neuts (auto) 14.0 H Absolute Lymphs (auto) 0.69 L Nucleated RBC % 0 Discharge Plan Triage Chief Complaint: Abd Pain ED Provider: Josh Mcleod Dx/Rx/DC Orders Prescriptions: No Action oxycodone 10 mg tablet 10 mg PO Q6H PRN (Reason: Pain) RF: 0 ibuprofen 800 mg tablet 800 mg PO Q8H PRN (Reason: Pain) RF: 0 magnesium hydroxide [Milk of Magnesia] 400 mg/5 mL suspension 30 ml PO BID PRN (Reason: Constipation) RF: 0 guaifenesin [Mucus Relief] 400 mg tablet 400 mg PO BID RF: 0 sennosides-docusate sodium [Senna Plus] 8.6-50 mg tablet 1 tab-cap PO BID RF: 0 diclofenac sodium 1 % gel 2 g topical BID RF: 0 ondansetron HCl [Zofran] 4 mg tablet 4 mg PO Q6H PRN (Reason: Nausea) RF: 0 albuterol sulfate 90 mcg/actuation HFA aerosol inhaler 2 puff inhalation Q6H PRN (Reason: shortness of breath or wheezing) Qty: 8.5 RF: 2 gabapentin 100 mg Capsule 300 mg PO BID Qty: 0 RF: 0 levofloxacin 750 mg tablet 750 mg PO Q24H Qty: 5 RF: 0 Jardiance 25 mg tablet 25 mg PO DAILY Qty: 90 RF: 2 atorvastatin 40 mg tablet 40 mg PO QHS Qty: 90 RF: 3 aspirin 81 mg tablet,delayed release (DR/EC) 81 mg PO DAILY Qty: 90 RF: 2 glipizide 10 mg tablet 10 mg PO BID Qty: 180 RF: 2 hydrochlorothiazide 25 mg tablet 25 mg PO DAILY Qty: 90 RF: 2 lisinopril 10 mg tablet 10 mg PO DAILY Qty: 90 RF: 2 metformin 1,000 mg tablet 1,000 mg PO BID Qty: 180 RF: 3 Hold Instructions: Resume on 10/01/21. omeprazole 40 mg capsule,delayed release(DR/EC) 40 mg PO DAILY Qty: 90 RF: 3 sertraline 100 mg tablet 100 mg PO DAILY Qty: 90 RF: 2 trazodone 50 mg tablet 75 mg PO QHS Qty: 90 RF: 2 cholecalciferol (vitamin D3) 125 mcg (5,000 unit) capsule 125 mcg PO DAILY Qty: 90 RF: 1 melatonin 3 mg tablet 3 mg PO QHS PRN (Reason: sleep) Qty: 90 RF: 0 (DME) Blood Glucose Test Strip See Rx Instructions .ROUTE .MEDSUPPLY Qty: 100 RF: 3 (DME) lancets [Fingerstix Lancets] Misc See Rx Instructions .ROUTE .MEDSUPPLY Qty: 100 RF: 0 amlodipine 5 mg tablet 5 mg PO DAILY Qty: 90 RF: 2 quetiapine 25 mg tablet 25 mg PO TID Qty: 90 RF: 3 (DME) pen needle, diabetic [Lite Touch Insulin Pen [place]] 31 gauge x 1/4 needle See Rx Instructions .ROUTE .MEDSUPPLY Qty: 200 RF: 3 gabapentin 300 mg capsule 300 mg PO TID Qty: 90 RF: 2 (DME) blood-glucose meter Misc See Rx Instructions .ROUTE .MEDSUPPLY Qty: 1 RF: 0 (DME) FreeStyle [place]ory 2 [place] Misc See Rx Instructions .ROUTE .MEDSUPPLY Qty: 1 RF: 0 (DME) FreeStyle Kory 2 Sensor Kit See Rx Instructions .ROUTE .MEDSUPPLY Qty: 2 RF: 3 Lantus Solostar U-100 Insulin 100 unit/mL (3 mL) insulin pen 75 unit subcut BID 90 Days Qty: 135 RF: 2 insulin lispro 100 unit/mL insulin pen 25 unit subcut .QID Qty: 15 RF: 2 Primary Care Provider: Chris Bustamante
[2021-10-13 07:14] LABS: AST(SGOT) 117 U/L (15-37); Alanine Aminotransfer ALT/SGPT 75 U/L (13-56); Albumin, Serum 2.9 g/dL (3.2-5.0); Alkaline Phosphatase 73 U/L (45-117); Anion Gap 12 (5-15); BUN 17 mg/dL (7-18); Bilirubin, Direct 0.15 mg/dL (0.00-0.30); Calcium,Total 9.1 mg/dL (8.5-10.1); Chloride 96 mmol/L (98-107); Creatinine, Serum 1.06 mg/dL (0.55-1.02); EST Glomerular Filtration Rate 57 mL/min (>60); Est Glom Filt Rate - Afr Amer 69 mL/min (>60); Estimated Creatinine Clearance 50.56 ml/min; Globulin 5.8 g/dL (2.2-4.2); Glucose 136 mg/dL (74-106); Lipase 32 U/L (73-393); Potassium 2.6 mmol/L (3.5-5.1); Protein, Total 8.7 g/dL (6.4-8.2); Sodium Level 132 mmol/L (136-145)
[2021-10-13 07:27] LABS: Lactic Acid 2.2 mmol/L (0.4-1.9)
[2021-10-13 08:30] LABS: Bedside Glucose 42 mg/dL (70-110)
[2021-10-13] MEDS: Dextrose 50%-Water 25 GM/50 ML DISP.SYRIN IV ×3 (08:30→23:39)
[2021-10-13] MEDS: Potassium Chloride 10mEq/100mL 10 MEQ/100 ML IV.SOLN. 100 MEQ IV BOLUS ×2 (08:48→10:15)
[2021-10-13] MEDS: Potassium Chloride Oral Tablet 20 MEQ 40 MEQ PO (08:48)
[2021-10-13 09:11] LABS: Bedside Glucose 116 mg/dL (70-110)
[2021-10-13 10:30] LABS: Bedside Glucose 66 mg/dL (70-110)
--- NOTE | 2021-10-13 10:48 | PCM.HP.STD ---
HPI - General General Date of Admission: 10/13/21 HPI Narrative BRAYAN STORY, is a 56 F with multiple comorbidities as listed below came to ER with nausea, vomiting and diarrhea for about 4 days. The patient is poor historian, think she has limited understanding of of multiple medical conditions and nods her head or in short phrases on history interview. She feels chills and cold and mild fever. She was recently in the hospital for pneumonia and was discharged on Levaquin. She also has history of multiple surgical scar in abdomen and CT abdomen shows multiple areas of bowel and fat herniation. CT abdomen reviewed and discussed with the surgeon Dr. Nolasco. Patient is bilateral amputee with limited ambulation with history of diabetes mellitus. Right above knee and left below-knee amputation. She complains of upper abdominal pain but denies abdominal pain and palpation of hernia as per surgeon's note. CT abdomen of the right also shows multiple ventral hernia. Patient was hypotensive in ED and had volume resuscitation and blood pressure responded. BP most recent 132/99. Patient also with leukocytosis and lactic acidosis. Patient also had wet diaper due to urinary incontinent and also for diarrhea in ED. Discussed with nursing staff in ED. 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 Alcohol dependence, uncomplicated Atrophy of muscle of multiple sites Bipolar disorder, unspecified Chronic low back pain Chronic neck pain Chronic pain Cocaine abuse, uncomplicated Colon cancer screening COPD (chronic obstructive pulmonary disease) Diabetes Essential (primary) hypertension Flu vaccine need Gastro-esophageal reflux disease without esophagitis History of left below knee amputation History of right above knee amputation Hyperlipidemia, unspecified Hypertension Insomnia, unspecified Insulin dependent diabetes mellitus Major depressive disorder, single episode, unspecified Metabolic encephalopathy Muscle weakness (generalized) Other chronic pain Patient's noncompliance with other medical treatment and regimen Peripheral vascular disease, unspecified Preventative health care Schizoaffective disorder, bipolar type Shortness of breath on exertion Smoker Type 2 diabetes mellitus Type 2 diabetes mellitus without complications Vitamin D deficiency, unspecified Home Medications diclofenac sodium 1 % topical gel 2 g TOPICAL BID g 04/28/21 [History Last Taken Unknown] guaifenesin 400 mg tablet 400 mg PO BID tab 04/28/21 [History Last Taken Unknown] ibuprofen 800 mg tablet 800 mg PO Q8H PRN 04/28/21 [History Last Taken Unknown] magnesium hydroxide 400 mg/5 mL oral suspension 30 ml PO BID PRN ml 04/28/21 [History Last Taken Unknown] ondansetron HCl 4 mg tablet 4 mg PO Q6H PRN 04/28/21 [History Last Taken Unknown] sennosides 8.6 mg-docusate sodium 50 mg tablet 1 tab-cap PO BID tab 04/28/21 [History Last Taken Unknown] oxycodone 10 mg tablet 10 mg PO Q6H PRN 05/26/21 [History Last Taken Unknown] aspirin 81 mg tablet,delayed release 81 mg PO DAILY #90 tab 05/31/21 [Rx Last Taken Unknown] atorvastatin 40 mg tablet 40 mg PO QHS #90 tab 05/31/21 [Rx Last Taken Unknown] empagliflozin 25 mg tablet 25 mg PO DAILY #90 tab 05/31/21 [Rx Last Taken Unknown] glipizide 10 mg tablet 10 mg PO BID #180 tab 05/31/21 [Rx Last Taken Unknown] hydrochlorothiazide 25 mg tablet 25 mg PO DAILY #90 tab 05/31/21 [Rx Last Taken Unknown] lisinopril 10 mg tablet 10 mg PO DAILY #90 tab 05/31/21 [Rx Last Taken Unknown] metformin 1,000 mg tablet 1,000 mg PO BID #180 tab 05/31/21 [Rx Last Taken Unknown] omeprazole 40 mg capsule,delayed release 40 mg PO DAILY #90 cap 05/31/21 [Rx Last Taken Unknown] sertraline 100 mg tablet 100 mg PO DAILY #90 tab 05/31/21 [Rx Last Taken Unknown] trazodone 50 mg tablet 75 mg PO QHS #90 tab 05/31/21 [Rx Last Taken Unknown] blood sugar diagnostic #100 ea 06/09/21 [Rx Last Taken Unknown] cholecalciferol (vitamin D3) 125 mcg (5,000 unit) capsule 125 mcg PO DAILY #90 cap 06/09/21 [Rx Last Taken Unknown] lancets #100 ea 06/09/21 [Rx Last Taken Unknown] melatonin 3 mg tablet 3 mg PO QHS PRN #90 tab 06/09/21 [Rx Last Taken Unknown] amlodipine 5 mg tablet 5 mg PO DAILY #90 tab 06/23/21 [Rx Last Taken Unknown] quetiapine 25 mg tablet 25 mg PO TID #90 tab 07/08/21 [Rx Last Taken Unknown] albuterol sulfate 90 mcg/actuation aerosol inhaler 2 puff INHALATION Q6H PRN #8.5 g 08/10/21 [Rx Last Taken Unknown] pen needle, diabetic 31 gauge x 1/4 #200 ea 08/28/21 [Rx Last Taken Unknown] gabapentin 300 mg capsule 300 mg PO TID #90 cap 09/01/21 [Rx Last Taken Unknown] blood-glucose meter #1 ea 09/23/21 [Rx Last Taken Unknown] flash glucose scanning reader #1 ea 09/23/21 [Rx Last Taken Unknown] flash glucose sensor #2 ea 09/23/21 [Rx Last Taken Unknown] insulin glargine 100 unit/mL (3 mL) subcutaneous pen 75 unit SUBCUT BID 90 Days #135 ml 09/23/21 [Rx Last Taken Unknown] insulin lispro 100 unit/mL subcutaneous pen 25 unit SUBCUT .QID #15 ml 09/23/21 [Rx Last Taken Unknown] gabapentin 300 mg PO BID #0 cap 09/29/21 [Rx Last Taken Unknown] levofloxacin 750 mg PO Q24H #5 tab 09/29/21 [Rx Last Taken Unknown] Allergy/AdvReac Type Severity Reaction Status Date / Time No Known Allergies Allergy Verified 10/13/21 06:12 Family History Mother Heart disease Father Heart disease Surgical History History of exploratory laparotomy S/P AKA (above knee amputation) unilateral S/P BKA (below knee amputation) unilateral Social History household members: none Smoking Status: Current every day smoker tobacco type: cigarettes alcohol intake: current alcohol intake frequency: 0-2 drinks per day Alcohol type: beer details: Currently reports drinking only maximum 1 beer daily, prior higher. substance use type: former substance user what type of physical activity do you participate in: none ROS ROS Narrative Constitutional: Reports fatigue and weakness. Generalized weakness, shivering, fever Respiratory/Chest: Denies chest pain, shortness of breath at rest or with exertion Gastrointestinal: As described in HPI Genitourinary: External catheter. Denies burning urination. Urinary incontinent Musculoskeletal: Bilateral amputee. Musculoskeletal pain and follows pain management. Neurologic: Denies seizure-like activity skin: No ulcer. No rash Endocrinology: Diabetes mellitus type 2. Hematologic/Lymphatic: Reports systems reviewed and no addt'l complaints, except as documented Complete 12 ROS is difficult and unobtainable due to encephalopathy and rest are negative except as mentioned in HPI Review of Systems ROS Unobtainable: due to encephalopathy and due to mental status Vital Signs Vital Signs Vital Signs: 10/13/21 06:10 10/13/21 07:12 10/13/21 08:05 Temperature 96.5 F L 98 F Temperature Source Temporal Temporal Pulse Rate 118 H 110 H Respiratory Rate 18 20 H Blood Pressure 116/69 104/51 L Blood Pressure Mean 84 68 Pulse Ox 92 96 82 Oxygen Delivery Method Room Air Room Air Room Air Oxygen Flow Rate (L/min) 10/13/21 08:06 10/13/21 08:30 10/13/21 08:56 Temperature 97.9 F Temperature Source Temporal Pulse Rate 85 84 Respiratory Rate 22 H 22 H Blood Pressure 125/59 H 73/62 L Blood Pressure Mean 81 65 Pulse Ox 96 96 96 Oxygen Delivery Method Nasal Cannula Nasal Cannula Nasal Cannula Oxygen Flow Rate (L/min) 4 4 10/13/21 09:00 10/13/21 10:16 Temperature Temperature Source Pulse Rate 86 Respiratory Rate 20 H Blood Pressure 108/45 L 88/61 L Blood Pressure Mean 66 70 Pulse Ox 98 Oxygen Delivery Method Nasal Cannula Oxygen Flow Rate (L/min) 4 Weight Weight: 177 lb 7.554 oz Body Mass Index (BMI) 30.4 Physical Exam Narrative General: Lethargic, opens eyes for short time. Obtunded. HEENT: Atraumatic, PERRLA, EOMI, Normocephalic Oral: Oral mucosa dry. No Gingival or Mucosal Lesions/ Ulcerations Neck: Supple, No JVD, Negative Carotid Bruits Lungs: Air entry diminished in bilateral lung bases. No crepitation/rhonchi Cardiovascular: Regular rate, Regular Rhythm, Normal S1, Normal S2, No murmurs Abdomen: Midline surgical scar from xiphisternum to pubic area. Mild tenderness over epigastric/umbilical region. No significant distention. Bowel sounds hyperactive. : External urinary catheter. No renal angle tenderness. No suprapubic tenderness. Extremities: No edema, Capillary Refill Less than 3 Seconds Skin: No rashes, No breakdown Musculoskeletal: Bilateral amputee, right above-knee, left below-knee. Neurological: Cranial nerves II-XII grossly intact, generalized slowing in responding. No focal deficit. Psych/Mental Status: Obtunded. Results Lab / Micro Data Result Diagrams: 10/13/21 06:15 10/13/21 06:15 Labs: Laboratory Results - last 24 hr 10/13/21 06:15: WBC 14.9 H, RBC 4.46, Hgb 11.6 L, Hct 36.2 L, MCV 81.2, MCH 26.0 L, MCHC 32.0, RDW Std Deviation 57.4 H, RDW Coeff of Thien 19.3 H, Plt Count 252, MPV 10.6, Immature Gran % (Auto) 0.700, Neut % (Auto) 93.8 H, Lymph % (Auto) 4.6 L, [place] % (Auto) 0.7, Eos % (Auto) 0.0, Baso % (Auto) 0.2, Absolute Neuts (auto) 14.0 H, Absolute Lymphs (auto) 0.69 L, Nucleated RBC % 0 10/13/21 06:15: Sodium 132 L, Potassium 2.6 L*, Chloride 96 L, Carbon Dioxide 24.0, Anion Gap 12, BUN 17, Creatinine 1.06 H, Estim Creat Clear Calc 50.56, Est GFR (MDRD) Af Amer 69, Est GFR (MDRD) Non-Af 57 L, BUN/Creatinine Ratio 16.0, Glucose 136 H, Calcium 9.1, Total Bilirubin 0.50, Direct Bilirubin 0.15, AST 117 H, ALT 75 H, Alkaline Phosphatase 73, Total Protein 8.7 H, Albumin 2.9 L, Globulin 5.8 H, Lipase 32 L 10/13/21 06:15: Magnesium 1.0 L 10/13/21 06:45: Lactic Acid 2.2 H* 10/13/21 08:28: POC Glucose 42 L* 10/13/21 09:06: POC Glucose 116 H 10/13/21 10:24: POC Glucose 66 L Micro: Microbiology 10/13/21 06:30 Nasal Secretion SARS-CoV-2 Antigen (Rapid) - Final Radiology Impression Abdomen/Pelvis CT 10/13/21 06:25 IMPRESSION: To anterior abdominal wall defects visualized with herniation of height bowel visualized, no evidence of stranding of the adjacent fat planes no evidence of significant wall thickening, no evidence of incarceration is seen. Scattered diverticular disease but no evidence of acute diverticulitis in the large bowel. Focal aneurysmal dilatation of the distal abdominal aorta measuring 3.1 cm in maximal diameter. Degenerative bone changes. Electronically Signed: Lance Monteiro MD at 8:25 EST Tel , Service support , Assessment & Plan Assessment/Plan (1) Diarrhea: PLAN: 1. Sepsis due to acute gastroenteritis with suspicion of C. difficile infection: Patient has leukocytosis with left shift, lactic acidosis, Elevated transaminases and hypoglycemia: Patient is admitted on monitored bed. Patient had 2 L IV fluid normal saline bolus and then he started on D5NS 150 mill per hour and blood pressure is normotensive. Patient has external catheter for urine output monitoring. Stool for C. difficile, enteric bacteriology panel, occult blood and WBC ordered. CT abdomen reviewed with the surgeon as mentioned in HPI. Severe hypokalemia, hypophosphatemia and hypomagnesemia: Electrolytes are getting replaced. Check in the evening after replacement. 2. 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 A1c tomorrow a.m. 3. Multiple ventral hernia with bowel and fat herniation: This seems chronic with similar findings in April 2021 CT abdomen. Currently patient does not have abdominal pain at site of hernia. 4. Anxiety and depression/bipolar disorder/schizoaffective disorder: Home medications will be continued. 5. Chronic pain syndrome: Fentanyl as needed given hypotension. Patient follows Dr. Adrian for left-sided neck lower back shoulder pain. Had follow-up in the office 10/13/2020 6. History of polysubstance abuse: Patient with documented history of prior cocaine use, 7. Chronic tobacco Abuse/cigarette smoking: Encouraged cessation. Nicotine patch 8. Obesity: Weight loss and lifestyle changes encouraged. 9. DVT prophylaxis: SCDs, enoxaparin 40 mg subcu daily Living will/advanced directive/end of life care: Patient does not have living will or advanced directive. Currently patient lacks understanding of detailed discussion but after discussion of benefits/risks procedures involved with full code, DNR CC arrest and DNR CC, the patient wants full code. Her next to kin is her daughter. Patient does want artificial life support including intubation, tube feed, ventilator and/chest compression, central venous catheter, vasopressor and DC shock if needed Total time spent in [id number] encounter in discussion of advanced directive 16 minutes. Charges/Coding Visit Charges Inpatient E&M: 10780 Init Hosp L3 Procedures Hospitalists Procedures: 95496 Advncd Care Plan 30 Min
[2021-10-13 10:53] LABS: Reflex Lactate? Y
[2021-10-13] MEDS: fentaNYL 100 MCG/2 ML Ampul 50 MCG IV (11:02)
[2021-10-13 11:57] LABS: Lactic Acid 2.5 mmol/L (0.4-1.9)
--- NOTE | 2021-10-13 12:00 | EX.PCM.CON.S ---
Assessment & Plan Assessment/Plan (1) Vomiting: (2) Diarrhea: (3) Ventral hernia: PLAN: Patient CT abdomen pelvis were reviewed. Patient CT from April also showed multiple ventral hernias with bowel in several of the hernias. This CAT scan does show bowel on one of the hernias looks similar to April. Patient has been having nausea and vomiting and diarrhea. Denies any abdominal pain currently at the location of the hernia. Do believe these are chronic hernias not her source of nausea vomiting/abdominal pain. Call with any questions. Did discuss with Dr. Levy. Kathleen Nolasco M.D. Pager: [phone] [facility] [address] [place] [address], [facility], [address] [place] [id number] Office: [phone] HPI Consult Data Date of Consult: 10/14/21 HPI Narrative HPI Narrative: BRAYAN STORY, is a 56 F who presents to the ER due to nausea vomiting and diarrhea. Patient states this has been going on for last 3 days. Patient states she does not have any discrete abdominal pain currently. Patient previously had CT abdomen pelvis in April 2021 showed multiple ventral hernias containing bowel as well as intra-abdominal fat. Patient is CT abdomen pelvis from today only has one of the hernias containing some bowel looks similar to April the other ones are containing fat. Patient is intermittently falling asleep during questioning but does arouse quickly to her name. Patient denies any pain at the area of herniation. 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 Alcohol dependence, uncomplicated Atrophy of muscle of multiple sites Bipolar disorder, unspecified Chronic low back pain Chronic neck pain Chronic pain Cocaine abuse, uncomplicated Colon cancer screening COPD (chronic obstructive pulmonary disease) Diabetes Essential (primary) hypertension Flu vaccine need Gastro-esophageal reflux disease without esophagitis History of left below knee amputation History of right above knee amputation Hyperlipidemia, unspecified Hypertension Insomnia, unspecified Insulin dependent diabetes mellitus Major depressive disorder, single episode, unspecified Metabolic encephalopathy Muscle weakness (generalized) Other chronic pain Patient's noncompliance with other medical treatment and regimen Peripheral vascular disease, unspecified Preventative health care Schizoaffective disorder, bipolar type Shortness of breath on exertion Smoker Type 2 diabetes mellitus Type 2 diabetes mellitus without complications Vitamin D deficiency, unspecified Home Medications diclofenac sodium 1 % topical gel 2 g TOPICAL BID g 04/28/21 [History Last Taken Unknown] guaifenesin 400 mg tablet 400 mg PO BID tab 04/28/21 [History Last Taken Unknown] ibuprofen 800 mg tablet 800 mg PO Q8H PRN 04/28/21 [History Last Taken Unknown] magnesium hydroxide 400 mg/5 mL oral suspension 30 ml PO BID PRN ml 04/28/21 [History Last Taken Unknown] ondansetron HCl 4 mg tablet 4 mg PO Q6H PRN 04/28/21 [History Last Taken Unknown] sennosides 8.6 mg-docusate sodium 50 mg tablet 1 tab-cap PO BID tab 04/28/21 [History Last Taken Unknown] oxycodone 10 mg tablet 10 mg PO Q6H PRN 05/26/21 [History Last Taken Unknown] aspirin 81 mg tablet,delayed release 81 mg PO DAILY #90 tab 05/31/21 [Rx Last Taken Unknown] atorvastatin 40 mg tablet 40 mg PO QHS #90 tab 05/31/21 [Rx Last Taken Unknown] empagliflozin 25 mg tablet 25 mg PO DAILY #90 tab 05/31/21 [Rx Last Taken Unknown] glipizide 10 mg tablet 10 mg PO BID #180 tab 05/31/21 [Rx Last Taken Unknown] hydrochlorothiazide 25 mg tablet 25 mg PO DAILY #90 tab 05/31/21 [Rx Last Taken Unknown] lisinopril 10 mg tablet 10 mg PO DAILY #90 tab 05/31/21 [Rx Last Taken Unknown] metformin 1,000 mg tablet 1,000 mg PO BID #180 tab 05/31/21 [Rx Last Taken Unknown] omeprazole 40 mg capsule,delayed release 40 mg PO DAILY #90 cap 05/31/21 [Rx Last Taken Unknown] sertraline 100 mg tablet 100 mg PO DAILY #90 tab 05/31/21 [Rx Last Taken Unknown] trazodone 50 mg tablet 75 mg PO QHS #90 tab 05/31/21 [Rx Last Taken Unknown] blood sugar diagnostic #100 ea 06/09/21 [Rx Last Taken Unknown] cholecalciferol (vitamin D3) 125 mcg (5,000 unit) capsule 125 mcg PO DAILY #90 cap 06/09/21 [Rx Last Taken Unknown] lancets #100 ea 06/09/21 [Rx Last Taken Unknown] melatonin 3 mg tablet 3 mg PO QHS PRN #90 tab 06/09/21 [Rx Last Taken Unknown] amlodipine 5 mg tablet 5 mg PO DAILY #90 tab 06/23/21 [Rx Last Taken Unknown] quetiapine 25 mg tablet 25 mg PO TID #90 tab 07/08/21 [Rx Last Taken Unknown] albuterol sulfate 90 mcg/actuation aerosol inhaler 2 puff INHALATION Q6H PRN #8.5 g 08/10/21 [Rx Last Taken Unknown] pen needle, diabetic 31 gauge x 1/4 #200 ea 08/28/21 [Rx Last Taken Unknown] gabapentin 300 mg capsule 300 mg PO TID #90 cap 09/01/21 [Rx Last Taken Unknown] blood-glucose meter #1 ea 09/23/21 [Rx Last Taken Unknown] flash glucose scanning reader #1 ea 09/23/21 [Rx Last Taken Unknown] flash glucose sensor #2 ea 09/23/21 [Rx Last Taken Unknown] insulin glargine 100 unit/mL (3 mL) subcutaneous pen 75 unit SUBCUT BID 90 Days #135 ml 09/23/21 [Rx Last Taken Unknown] insulin lispro 100 unit/mL subcutaneous pen 25 unit SUBCUT .QID #15 ml 09/23/21 [Rx Last Taken Unknown] levofloxacin 750 mg PO Q24H #5 tab 09/29/21 [Rx Last Taken Unknown] Allergy/AdvReac Type Severity Reaction Status Date / Time No Known Allergies Allergy Verified 10/13/21 06:12 Family History Mother Heart disease Father Heart disease Surgical History History of exploratory laparotomy S/P AKA (above knee amputation) unilateral S/P BKA (below knee amputation) unilateral Social History household members: none Smoking Status: Current every day smoker tobacco type: cigarettes alcohol intake: current alcohol intake frequency: 0-2 drinks per day Alcohol type: beer details: Currently reports drinking only maximum 1 beer daily, prior higher. substance use type: former substance user what type of physical activity do you participate in: none ROS ROS Narrative Constitutional: Reports fatigue and weakness. Respiratory/Chest: Denies chest pain, shortness of breath at rest or with exertion Gastrointestinal: Denies any current abdominal pain, positive nausea/vomiting/diarrhea Genitourinary: Denies burning urination Musculoskeletal: Bilateral amputee right AKA, left BKA. Musculoskeletal pain Neurologic: Denies seizure-like activity skin: Denies rash Endocrinology: Diabetes mellitus type 2. Hematologic/Lymphatic: No easy bleeding or enlarged lymph nodes Physical Exam Const no apparent distress Orientation / Consciousness: other Other Details: Somnolent HEENT normocephalic and head/scalp atraumatic Resp normal respiratory effort Cardio regular rate GI soft to palpation; Negative for non-distended Palpation: other Other Details: Large midline scar, unable to discretely feel midline hernias due to body habitus/scar ; Negative for tender or guarding Extremity Extremity Narrative: Left BKA, right AKA Neuro CN's II-XII intact bilaterally Psych Mood & Affect: flat affect Lab / Micro Data Result Diagrams: 10/13/21 06:15 10/14/21 05:00 Labs: Laboratory Results - last 24 hr 10/13/21 06:15: WBC 14.9 H, RBC 4.46, Hgb 11.6 L, Hct 36.2 L, MCV 81.2, MCH 26.0 L, MCHC 32.0, RDW Std Deviation 57.4 H, RDW Coeff of Thien 19.3 H, Plt Count 252, MPV 10.6, Immature Gran % (Auto) 0.700, Neut % (Auto) 93.8 H, Lymph % (Auto) 4.6 L, [place] % (Auto) 0.7, Eos % (Auto) 0.0, Baso % (Auto) 0.2, Absolute Neuts (auto) 14.0 H, Absolute Lymphs (auto) 0.69 L, Nucleated RBC % 0 10/13/21 06:15: Sodium 132 L, Potassium 2.6 L*, Chloride 96 L, Carbon Dioxide 24.0, Anion Gap 12, BUN 17, Creatinine 1.06 H, Estim Creat Clear Calc 50.56, Est GFR (MDRD) Af Amer 69, Est GFR (MDRD) Non-Af 57 L, BUN/Creatinine Ratio 16.0, Glucose 136 H, Calcium 9.1, Total Bilirubin 0.50, Direct Bilirubin 0.15, AST 117 H, ALT 75 H, Alkaline Phosphatase 73, Total Protein 8.7 H, Albumin 2.9 L, Globulin 5.8 H, Lipase 32 L 10/13/21 06:15: Magnesium 1.0 L 10/13/21 06:45: Lactic Acid 2.2 H* 10/13/21 08:28: POC Glucose 42 L* 10/13/21 09:06: POC Glucose 116 H 10/13/21 10:24: POC Glucose 66 L 10/13/21 11:22: Lactic Acid 2.5 H* Micro: Microbiology 10/13/21 06:30 Nasal Secretion SARS-CoV-2 Antigen (Rapid) - Final Radiology Impression Abdomen/Pelvis CT 10/13/21 06:25 IMPRESSION: To anterior abdominal wall defects visualized with herniation of height bowel visualized, no evidence of stranding of the adjacent fat planes no evidence of significant wall thickening, no evidence of incarceration is seen. Scattered diverticular disease but no evidence of acute diverticulitis in the large bowel. Focal aneurysmal dilatation of the distal abdominal aorta measuring 3.1 cm in maximal diameter. Degenerative bone changes. Electronically Signed: Lance Monteiro MD at 8:25 EST Tel , Service support , Charges/Coding Visit Charges Inpatient E&M: 17934 Init Hosp L3
[2021-10-13 12:04] LABS: Phosphorus 1.9 mg/dL (2.5-4.9)
--- NOTE | 2021-10-13 12:04 | PCS.PANDOC ---
PANDEMIC DOCUMENTATION INITIATED: Date: 05/30/2021 Time: 190
[2021-10-13] MEDS: Dextrose 5%/0.9% NaCl 1,000 ML 150 ML IV (12:19)
--- NOTE | 2021-10-13 13:04 | HP.PCM_ITS ---
History and Physical Date of Admission: 10/17/21 Chief Complaint: follow up, low back pain. History of Present Illness: This is a 56 Y/O Female who was seen and evaluated at our office today as a follow up. Pain: left side neck,left lower back. bilateral shoulders Quality: intermittent Region: left side neck, left lower back, fingers on right hand, bilateral shoulders Severity: sharp/stabbing Timing: a few years Aggravated by: nothing specific Relieved by: pain cream Pain score (out of 10): 7-8/10 Other info: Patient is here for pain in left side neck with intermittent bilateral shoulder pain. Reports pain down her right arm and it is hard for her to lay on it, reports pain in fingers on right hand and it is hard for her to hold things and use her right hand. Reports pain in left lower back. States pain varies in intensity and is sharp/stabbing, she is still awaiting for her PT to start, she denies any other associated symptoms. Review of Systems: hot flashes, weight loss,loss of appetite,itching,vision problem,blurred vision. Patient denies any recent fever, chills, headache, change in weight without trying, vision or hearing problems. No cp, sob, pulliam, pnd, orthopnea, or peripheral edema.They note no lumps or swollen glands, no new rashes, changing moles, or change in bowel or bladder function. No melena or BRBPR. Mood has been more down. Past Medical History: h/o Bi-polar h/o hypertension h/o gastroesophageal reflux disease h/o hyperlipidemia h/o insomnia h/o depression h/o peripheral vascular disease h/o schizoaffective depressive disorder h/o vitamin D deficiency h/o Type II Diabetes h/o alcohol dependence-uncomplicated h/o cocaine abuse-uncomplicated s/p artemio leg amputation Family History: ======== Structured Family History ======== Family History: cancer,diabetes mellitus,myocardial infarction Social History: [Tobacco: Current every day smoker (0 ppd x 0 yrs = 0 pk yrs) Start Date: 06/07/2021 Pipe Smoker: No Cigar Smoker: No Chewing Tobacco User: No Electronic Cigarette User: No] Living situation: Single Occupation: Disability Tobacco: Cigarettes EtOH: Occasional Rec. drugs: Denies Allergies: No Known Allergies Medications: 1) aspirin 81 mg oral delayed release tablet, Take 1 tablet by mouth once daily 2) atorvastatin 40 mg oral tablet, Take 1 tablet by mouth every evening 3) diclofenac 1% topical gel, 2 grams bid 4) empagliflozin 25mg oral tablet, Take 1 tablet by mouth once daily 5) gabapentin 300 mg oral capsule, Take 1 tablet by mouth 3 Times a Day 6) glipiZIDE 10 mg oral tablet, Take 1 tablet by mouth 3 Times a Day 7) guaiFENesin 400 mg oral tablet, Take 1 tablet by mouth 2 times a Day 8) hydroCHLOROthiazide 25 mg oral tablet, Take 1 tablet by mouth 2 times a Day 9) ibuprofen 800 mg oral tablet, Take 1 tablet by mouth every 8 hours prn 10) insulin glargine, 75 units SQ bid 11) Insulin Lispro KwikPen 100 units/mL injectable solution, 25 units SQ qid 12) lisinopril 10 mg oral tablet, Take 1 tablet by mouth once daily 13) Magnesium Hydroxide oral suspension, 30 ml po bid prn 14) Melatonin 3 mg oral tablet, Take 1 tablet by mouth every evening 15) metFORMIN 1000 mg oral tablet, Take 1 tablet by mouth 2 times a Day 16) omeprazole 40 mg oral delayed release capsule, Take 1 tablet by mouth once daily 17) ondansetron 4 mg oral tablet, Take 1 tablet by mouth every 6 hours prn 18) PT/OT Eval and treat., 2-3 X per week for 6 weeks. 19) QUEtiapine 25 mg oral tablet, Take 1 tablet by mouth 3 Times a Day 20) Senna 8.6 mg oral tablet, Take 1 tablet by mouth 2 times a Day 21) sertraline 100 mg oral tablet, Take 1 tablet by mouth once daily 22) traZODone 50 mg oral tablet, Take 1 tablet by mouth every evening 23) Vitamin D3 5000 intl units (125 mcg) oral capsule, Take 1 tablet by mouth once daily Physical Examination: Wt: 185 lb Ht/Ln: 64 in BMI: 31.8 BP: 106/64 Pulse: 94 RR: 16 Temp: 96.9F Pain: 8 Well nourished and well developed in no acute distress. Affect is normal and appropriate. Mucosa pink and moist. Chest is unlabored breathing, pt is alert and oriented to place, person and time. Neck is supple without significant lymphadenopathy or thyromegaly. Abdomen soft & non-tender. No HSM or masses appreciated. Extremities show no cyanosis, clubbing, or edema. ON a motorized chair. left BKA stump tenderness without any neuroma, positive AKA stump on the right, Cervical ROM is limited due to pain, Cervical paraspinal muscle tenderness, Bilateral cervical facet loading is positive. Lumbar ROM is limited due to pain. Lumbar paraspinal muscle tenderness. Bilateral lumbar facet loading is positive. Motor and sensory exam is unchanged. Goals: Health Concerns: Assessment & Plan: # Degeneration of lumbosacral intervertebral disc (M51.37): # Lumbosacral spondylosis (M47.817): # Lumbosacral radiculopathy (M54.17): # Arthropathy of lumbar facet (M46.96): # Degeneration of cervical intervertebral disc (M50.30): # Cervical spondylosis (M47.812): # terminal gauger (current) use of opiate analgesic (Z79.891): Continue with her current medications. OARRS was reviewed today. UDS was reviewed and was compliant. SOAPP score is 12 Xray of the lumbar spine was reviewed with the pt today and they appear to understand. Life style modifications were also discussed today and the pt appears to understand. Pt was advised not to consume alcohol with his medications due to possible severe interaction, pt appears to understand. The pt has been counseled on safe storage and disposal of opioids. Smoking cessation was discussed today and pt was encouraged. There are no signs of diversion or addiction with the pt, there is also no signs of abuse or misuse, continues to do well with their medications without any side effects, we will continue monitoring the pt closely. Risks and benefits of the above meds were discussed with the pt and they appear to understand. The common side effects of the medications were discussed and all of their questions and concerns were answered and they appear to understand Discussed natural and expected course of this diagnosis and need to alert me if symptoms do not follow expected course, or if any worse. Pt is to continue with her HEP. Pt has tried multiple modalities with no success, we will schedule the pt for a diagnostic/ therapeutic caudal epidural steroid injection under fluoro. We have discussed the risks, benefits as well as alternatives of the procedure and the patient appears to understand and would like to proceed with the above plan. The above plan was discussed today with the pt in details and they appear to understand and agrees to continue with the plan.
[2021-10-13 13:24] LABS: Magnesium 1.2 mg/dL (1.6-2.6)
--- NOTE | 2021-10-13 14:04 | EKG12_ITS ---
Test Reason : N/V Blood Pressure : / mmHG Vent. Rate : 102 BPM Atrial Rate : 102 BPM P-R Int : 118 ms QRS Dur : 076 ms QT Int : 306 ms P-R-T Axes : 054 -13 004 degrees QTc Int : 398 ms Sinus tachycardia Nonspecific ST and T wave abnormality Abnormal ECG When compared with ECG of 28-SEP-2021 14:31, No significant change was found Confirmed by VIRAL AUGUSTE, JONG ([id number]), magazine editor EFREM GRADY ([id number]) on 10/27/2021 2:01:29 PM Referred By: MIRA Confirmed By:AGAPITO STRATTON MD
[2021-10-13] MEDS: Magnesium Sulfate 4gm/100mL 4 GM/100 ML IV.SOLN. IV (14:16)
[2021-10-13] MEDS: Enoxaparin 40 MG/0.4 ML Syringe SC (15:05)
[2021-10-13 17:10] LABS: Bedside Glucose 130 mg/dL (70-110)
[2021-10-13 20:21] LABS: Anion Gap 9 (5-15); BUN 14 mg/dL (7-18); BUN/Creat Ratio 14.1 RATIO (10-20); Calcium,Total 7.7 mg/dL (8.5-10.1); Chloride 104 mmol/L (98-107); EST Glomerular Filtration Rate 61 mL/min (>60); Est Glom Filt Rate - Afr Amer 74 mL/min (>60); Glucose 87 mg/dL (74-106); Magnesium 2.7 mg/dL (1.6-2.6); Potassium 3.5 mmol/L (3.5-5.1); Sodium Level 136 mmol/L (136-145)
[2021-10-13 20:31] LABS: Phosphorus 2.9 mg/dL (2.5-4.9)
[2021-10-13] MEDS: Acetaminophen 325 MG Tablet 650 MG PO (22:26)
[2021-10-13] MEDS: Atorvastatin Calcium 40 MG Tablet PO (22:27)
[2021-10-13] MEDS: Gabapentin 300 MG Capsule PO (22:31)
[2021-10-13] MEDS: traZODone 50 MG Tablet 75 MG PO (22:31)
[2021-10-13 23:15] LABS: Bedside Glucose 59 mg/dL (70-110)
[2021-10-13] MEDS: Albuterol 2.5 MG/3 ML VIAL.NEB. INHALATION (23:30)
[2021-10-13 23:40] LABS: Bedside Glucose 48 mg/dL (70-110)
--- NOTE | 2021-10-13 23:45 | NURSING ---
pt hot, temp 101.6, blood sugar 59, given a juice, amp d 50 given
[2021-10-14] VITALS (10 sets, daily range): BP systolic 94–126; BP diastolic 54–68; PULSE 67–98; RESP 18–24; TEMP 36.6–37.4; O2SAT 95–99
[2021-10-14 00:23] LABS: Bacteria 0 SEEN /hpf (None Seen); Mucous, Urine 0 SEEN /hpf (<or=2+); Squamous Epithelial Cells - UA 0 SEEN /hpf (5-10); White Blood Cells 0 SEEN /hpf (0-5)
[2021-10-14 00:24] LABS: Color, Urine Yellow (Yellow); Glucose, Dipstick 250 mg/dl (Normal); Ketone-Dipstick Negative (Negative); Leukocyte Esterase-Dipstick Negative /ul (Negative); Nitrite-Dipstick Negative (Negative); Occult Blood-Urine 25 /ul (Negative); Protein-Dipstick 30 mg/dl (Negative); Specific Gravity, Urine 1.015 (1.002-1.030); Urine Bilirubin Dipstick Negative (Negative); Urine Clarity Clear (Clear); Urine Urobilinogen Normal (Normal)
[2021-10-14 00:59] LABS: Red Blood Cells-Urine 0-5 SEEN /hpf (0-5)
[2021-10-14 01:30] LABS: Bedside Glucose 206 mg/dL (70-110)
[2021-10-14 01:45] LABS: Bedside Glucose 202 mg/dL (70-110)
--- NOTE | 2021-10-14 02:11 | RAD_ITS ---
STUDY: X-RAY CHEST REASON FOR EXAM: Female, 56 years old. evaluation for pneumonia TECHNIQUE: Single AP portable view of the chest. COMPARISON: 09/28/2021 FINDINGS: There are superimposed monitor leads. Worsening of aeration of bilateral airspace disease with hazy opacification. Stable deformity of the right lower hemithorax/chest wall, mild elevation right hemidiaphragm and blunting of the right costophrenic angle. No large effusions. There is borderline cardiac size. Normal mediastinum and hernan. Normal visualized pulmonary arteries. There is atherosclerotic calcification of the aortic arch with tortuosity. Normal visualized thoracic spine. Normal visualized ribs, clavicles, and shoulders. There is no demonstrated abnormality of the visualized soft tissue structures of the upper abdomen. RAD/Chest 1 View (Portable) IMPRESSION: Bilateral hazy infiltrates. Imaging features can be seen with covid 19 pneumonia, but are nonspecific and may occur with a variety of infectious and noninfectious processes. Scarring or atelectasis involving the right base. There is borderline cardiac size. Electronically Signed: Jessica Yusuf MD at 3:54 EST , Service support ,
--- NOTE | 2021-10-14 03:25 | NURSING ---
WAS CALLED AND NOTIFIED OF THE LOW BLOOD SUGARS AND ELEVATED TEMP, URINE ORDERED, STRAIGHT CATHED, NOTICED SHE HAD A LOT OF YEAST ISSUES, DR INFORMED, DIFULUCAN ORDERED. URINE CAME BACK NEGATIVE, CHEST XRAY ORDERED. BLOOD CULTURES PENDING
[2021-10-14] MEDS: Acetaminophen 325 MG Tablet 650 MG PO ×2 (04:03→13:36)
[2021-10-14 04:11] LABS: Bedside Glucose 127 mg/dL (70-110)
[2021-10-14] MEDS: Fluconazole 100 MG Tablet 200 MG PO (04:38)
[2021-10-14 05:53] LABS: AST(SGOT) 258 U/L (15-37); Alanine Aminotransfer ALT/SGPT 135 U/L (13-56); Albumin, Serum 2.1 g/dL (3.2-5.0); Alkaline Phosphatase 61 U/L (45-117); Anion Gap 8 (5-15); BUN 12 mg/dL (7-18); BUN/Creat Ratio 13.5 RATIO (10-20); Bilirubin, Direct 0.11 mg/dL (0.00-0.30); Calcium,Total 7.6 mg/dL (8.5-10.1); Chloride 107 mmol/L (98-107); Creatinine, Serum 0.89 mg/dL (0.55-1.02); EST Glomerular Filtration Rate 70 mL/min (>60); Est Glom Filt Rate - Afr Amer 84 mL/min (>60); Estimated Creatinine Clearance 60.22 ml/min; Globulin 4.7 g/dL (2.2-4.2); Glucose 111 mg/dL (74-106); Potassium 3.3 mmol/L (3.5-5.1); Protein, Total 6.8 g/dL (6.4-8.2); Sodium Level 136 mmol/L (136-145)
[2021-10-14 06:18] LABS: Phosphorus 2.8 mg/dL (2.5-4.9)
[2021-10-14 06:25] LABS: LDH 553 U/L (84-246)
[2021-10-14 07:05] LABS: Bedside Glucose 102 mg/dL (70-110)
[2021-10-14 08:24] LABS: Procalcitonin 3.46 ng/mL (0.00-0.09)
[2021-10-14] MEDS: Gabapentin 300 MG Capsule PO ×2 (09:32→21:23)
[2021-10-14] MEDS: Sertraline 100 MG Tablet PO (09:32)
[2021-10-14] MEDS: Aspirin E.C. 81 MG Tablet PO (09:32)
[2021-10-14] MEDS: Enoxaparin 40 MG/0.4 ML Syringe SC (09:32)
[2021-10-14] MEDS: Menthol/Lanolin/Calamine/Znox 113 GM Tube 1 APPLIC TOPICAL ×2 (09:33→17:28)
[2021-10-14 09:56] LABS: Hemoglobin A1c 9.3 % (3.8-5.6)
--- NOTE | 2021-10-14 11:59 | PCM.PN.HOSP ---
Subjective Subjective Patient on 2 L of oxygen. Fever, T-max 101.6 Fahrenheit Objective Data Objective Data Vital Signs: Vital Signs Temp Pulse Resp BP Pulse Ox 98.4 F 78 19 H 107/56 L 95 10/14/21 09:39 10/14/21 09:39 10/14/21 09:39 10/14/21 09:39 10/14/21 09:39 Oxygen Flow Rate (L/min) 2 Oxygen Delivery Method Nasal Cannula Weight: 186 lb 4.65 oz Body Mass Index (BMI) 31.9 Intake & Output: Intake and Output for Last 24 Hours 10/12/21 10/13/21 10/14/21 23:59 23:59 23:59 Intake Total 4233.3333 / 4233.3333 893.75 / 893.75 Output Total 300 / 300 Balance 4233.3333 / 3933.3333 593.75 / 593.75 Lab / Micro Data Result Diagrams: 10/13/21 06:15 10/14/21 05:00 Labs: Laboratory Results - last 24 hr 10/13/21 06:15: Phosphorus 1.9 L 10/13/21 13:05: Magnesium 1.2 L 10/13/21 16:49: POC Glucose 130 H 10/13/21 19:48: Phosphorus 2.9 10/13/21 19:48: Sodium 136, Potassium 3.5, Chloride 104, Carbon Dioxide 23.0, Anion Gap 9, BUN 14, Creatinine 1.00, Estim Creat Clear Calc 53.60, Est GFR (MDRD) Af Amer 74, Est GFR (MDRD) Non-Af 61, BUN/Creatinine Ratio 14.1, Glucose 87, Calcium 7.7 L, Magnesium 2.7 H 10/13/21 22:35: POC Glucose 59 L 10/13/21 23:27: POC Glucose 48 L 10/14/21 00:15: Urine Color Yellow, Urine Clarity Clear, Urine pH 6.0, Ur Specific [place] 1.015, Urine Protein 30 H, Urine Glucose (UA) 250 H, Urine Ketones Negative, Urine Occult Blood 25 H, Urine Nitrite Negative, Urine Bilirubin Negative, Urine Urobilinogen Normal, Ur Leukocyte Esterase Negative, Urine RBC 0-5 SEEN, Urine WBC 0 SEEN, Ur Squamous Epith Cells 0 SEEN, Urine Bacteria 0 SEEN, Urine Mucus 0 SEEN 10/14/21 00:58: POC Glucose 206 H 10/14/21 01:38: POC Glucose 202 H 10/14/21 03:45: POC Glucose 127 H 10/14/21 05:00: Sodium 136, Potassium 3.3 L, Chloride 107, Carbon Dioxide 21.0, Anion Gap 8, BUN 12, Creatinine 0.89, Estim Creat Clear Calc 60.22, Est GFR (MDRD) Af Amer 84, Est GFR (MDRD) Non-Af 70, BUN/Creatinine Ratio 13.5, Glucose 111 H, Calcium 7.6 L, Total Bilirubin 0.40, Direct Bilirubin 0.11, AST 258 H, ALT 135 H, Alkaline Phosphatase 61, Total Protein 6.8, Albumin 2.1 L, Globulin 4.7 H 10/14/21 05:00: Phosphorus 2.8 10/14/21 05:00: Hemoglobin A1c 9.3 H 10/14/21 05:00: Lactate Dehydrogenase 553 H 10/14/21 06:02: POC Glucose 102 10/14/21 06:12: Procalcitonin 3.46 H 10/14/21 07:30: COVID-19 (IRENE) Detected Micro: Microbiology 10/14/21 00:50 Stool Stool Lactoferrin - Final 10/14/21 00:50 Stool Stool Occult Blood (ARTUR) - Final 10/13/21 06:30 Nasal Secretion SARS-CoV-2 Antigen (Rapid) - Final Radiography Diagnostic Testing: Radiology Impression Chest X-Ray 10/14/21 02:11 IMPRESSION: Bilateral hazy infiltrates. Imaging features can be seen with covid 19 pneumonia, but are nonspecific and may occur with a variety of infectious and noninfectious processes. Scarring or atelectasis involving the right base. There is borderline cardiac size. Electronically Signed: Jessica Yusuf MD at 3:54 EST , Service support , Physical Exam Narrative General: Alert, awake, oriented x3. Fatigue. HEENT: Atraumatic, PERRLA, EOMI, Normocephalic Oral: Oral mucosa moist no Gingival or Mucosal Lesions/ Ulcerations Neck: Supple, No JVD, Negative Carotid Bruits Lungs: Air entry diminished in bilateral lung bases. No crepitation/rhonchi Cardiovascular: Regular rate, Regular Rhythm, Normal S1, Normal S2, No murmurs Abdomen: Midline surgical scar from xiphisternum to pubic area. Mild tenderness over epigastric/umbilical region. No significant distention. Bowels are normal. Passing flatus : External urinary catheter. No renal angle tenderness. No suprapubic tenderness. Extremities: No edema, Capillary Refill Less than 3 Seconds Skin: No rashes, No breakdown Musculoskeletal: Bilateral amputee, right above-knee, left below-knee. Neurological: Cranial nerves II-XII grossly intact, generalized slowing in responding. No focal deficit. Psych/Mental Status: Flat affect. Assessment & Plan Assessment/Plan (1) Diarrhea: PLAN: 1. Sepsis due to acute gastroenteritis with suspicion of C. difficile infection: Patient has leukocytosis with left shift, lactic acidosis, Elevated transaminases and hypoglycemia: Patient is admitted on monitored bed. Patient had 2 L IV fluid normal saline bolus and then he started on D5NS 150 mill per hour and blood pressure is normotensive. Patient has external catheter for urine output monitoring. CT abdomen reviewed with the surgeon as mentioned in HPI. Severe hypokalemia, hypophosphatemia and hypomagnesemia: Electrolytes are getting replaced. 10/14: Patient has hypokalemia, phosphorus 2.8. IV potassium phosphate ordered. Monitor labs. Patient has Covid infection. Started on dexamethasone. I called the nurse to find out what CT PCR not done. Stool for enteric bacteriology panel negative. Stool for occult blood negative. WBC positive. Patient is out of window for remdesivir. 2. 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 A1c tomorrow a.m. 10/14 blood sugar is running low. Patient on Accu-Chek without minimal coverage 3. Multiple ventral hernia with bowel and fat herniation: This seems chronic with similar findings in April 2021 CT abdomen. Currently patient does not have abdominal pain at site of hernia. 4. Anxiety and depression/bipolar disorder/schizoaffective disorder: Home medications will be continued. 5. Chronic pain syndrome: Fentanyl as needed given hypotension. Patient follows Dr. Adrian for left-sided neck lower back shoulder pain. Had follow-up in the office 10/13/2020 6. History of polysubstance abuse: Patient with documented history of prior cocaine use, 7. Chronic tobacco Abuse/cigarette smoking: Encouraged cessation. Nicotine patch 8. Obesity: Weight loss and lifestyle changes encouraged. 9. DVT prophylaxis: SCDs, enoxaparin 40 mg subcu daily Living will/advanced directive/end of life care: Patient does not have living will or advanced directive. Currently patient lacks understanding of detailed discussion but after discussion of benefits/risks procedures involved with full code, DNR CC arrest and DNR CC, the patient wants full code. Her next to kin is her daughter. Patient does want artificial life support including intubation, tube feed, ventilator and/chest compression, central venous catheter, vasopressor and DC shock if needed Total time spent in [id number] encounter in discussion of advanced directive 16 minutes. Charges/Coding Visit Charges Inpatient E&M: 87038 Subs Hosp L2
[2021-10-14 12:05] LABS: Bedside Glucose 86 mg/dL (70-110)
[2021-10-14] MEDS: 0.9% Saline Lock 10 ML Syringe IV (13:32)
--- NOTE | 2021-10-14 14:36 | CASEMGMT ---
Face to Face with patient for initial transition planning/care coordination assessment. JOSE COLLADO introduced self and role at [facility], voices understanding. Care providers, pharmacy, and demographics verified. PCP: Dianna Specialists: Antolin (pain) (pt has an appointment on Sunday she would like to attend if able.) Preferred Pharmacy: [facility] her meds. ([facility] retail pharmacy ok at [place] if over weekend) Insurance: Medicaid Prescription Benefit: yes LNOK: Daughter ePnelope Davila Living Arrangements: Pt lives alone in a single story apartment. 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 States her daughter is limited in her ability to assist due to having her own family. Transportation: Pt uses w/c transport companies to provide transportation to appointments. DME: power w/c, scooter, shower chair, hand held shower, medical alert, and glucometer. SNF: previous stay at [facility]: Current with [facility] for PT/OT services. Plan: Return home with resumption of [facility] PT/OT services. Glenis Newton RN CM
[2021-10-14] MEDS: dexAMETHasone 10 MG/ML Vial 6 MG IV (15:20)
[2021-10-14 17:46] LABS: Bedside Glucose 138 mg/dL (70-110)
[2021-10-14] MEDS: traZODone 50 MG Tablet 75 MG PO (21:22)
[2021-10-14] MEDS: Atorvastatin Calcium 40 MG Tablet PO (21:23)
[2021-10-14] MEDS: Albuterol 2.5 MG/3 ML VIAL.NEB. INHALATION (21:25)
[2021-10-14] MEDS: Insulin Lispro 100 UNIT/ML INSULN.PEN SC (21:27)
[2021-10-14 21:45] LABS: Bedside Glucose 224 mg/dL (70-110)
[2021-10-15] VITALS (15 sets, daily range): BP systolic 126–135; BP diastolic 57–89; PULSE 54–70; RESP 16–20; TEMP 36.6–37; O2SAT 96–99
[2021-10-15] MEDS: 0.9% Saline Lock 10 ML Syringe IV ×4 (06:29→21:54)
[2021-10-15] MEDS: Insulin Lispro 100 UNIT/ML INSULN.PEN SC ×5 (06:30→21:49)
[2021-10-15 06:50] LABS: Bedside Glucose 244 mg/dL (70-110)
[2021-10-15] MEDS: Albuterol 2.5 MG/3 ML VIAL.NEB. INHALATION (07:47)
[2021-10-15 09:06] LABS: AST(SGOT) 180 U/L (15-37); Alanine Aminotransfer ALT/SGPT 166 U/L (13-56); Albumin, Serum 2.2 g/dL (3.2-5.0); Alkaline Phosphatase 88 U/L (45-117); Anion Gap 12 (5-15); BUN 18 mg/dL (7-18); BUN/Creat Ratio 21.6 RATIO (10-20); Bilirubin, Direct < 0.05 mg/dL (0.00-0.30); Calcium,Total 8.1 mg/dL (8.5-10.1); Chloride 110 mmol/L (98-107); Creatinine, Serum 0.84 mg/dL (0.55-1.02); EST Glomerular Filtration Rate 75 mL/min (>60); Est Glom Filt Rate - Afr Amer 90 mL/min (>60); Estimated Creatinine Clearance 63.81 ml/min; Globulin 4.8 g/dL (2.2-4.2); Glucose 256 mg/dL (74-106); Potassium 5.4 mmol/L (3.5-5.1); Sodium Level 137 mmol/L (136-145)
[2021-10-15] MEDS: Aspirin E.C. 81 MG Tablet PO (09:53)
[2021-10-15] MEDS: dexAMETHasone 10 MG/ML Vial 6 MG IV (09:53)
[2021-10-15] MEDS: Sertraline 100 MG Tablet PO (09:53)
[2021-10-15] MEDS: Gabapentin 300 MG Capsule PO ×2 (09:53→21:09)
[2021-10-15] MEDS: Enoxaparin 40 MG/0.4 ML Syringe SC (09:54)
[2021-10-15] MEDS: Menthol/Lanolin/Calamine/Znox 113 GM Tube 1 APPLIC TOPICAL ×2 (09:55→21:11)
[2021-10-15] MEDS: Acetaminophen 325 MG Tablet 650 MG PO ×2 (11:25→18:04)
[2021-10-15 11:35] LABS: Bedside Glucose 304 mg/dL (70-110)
--- NOTE | 2021-10-15 13:29 | PCM.PN.HOSP ---
Subjective Subjective Patient complained about the diet. Diet advanced to regular texture from transitional diet, 1800 ADA diet. Patient also complained of buttock pain. Objective Data Objective Data Vital Signs: Vital Signs Temp Pulse Resp BP Pulse Ox 97.9 F 64 16 127/57 H 96 10/15/21 11:50 10/15/21 11:50 10/15/21 11:50 10/15/21 11:50 10/15/21 11:50 Oxygen Flow Rate (L/min) 2 Oxygen Delivery Method Nasal Cannula Weight: 186 lb 4.65 oz Body Mass Index (BMI) 31.9 Intake & Output: Intake and Output for Last 24 Hours 10/13/21 10/14/21 10/15/21 23:59 23:59 23:59 Intake Total 4233.3333 / 4233.3333 1713.75 / 1713.75 360 / 360 Output Total 300 / 300 Balance 4233.3333 / 3933.3333 1413.75 / 1413.75 360 / 360 Lab / Micro Data Result Diagrams: 10/13/21 06:15 10/15/21 07:03 Labs: Laboratory Results - last 24 hr 10/14/21 17:12: POC Glucose 138 H 10/14/21 21:21: POC Glucose 224 H 10/15/21 06:28: POC Glucose 244 H 10/15/21 07:03: Sodium 137, Potassium 5.4 H, Chloride 110 H, Carbon Dioxide 15.0 L, Anion Gap 12, BUN 18, Creatinine 0.84, Estim Creat Clear Calc 63.81, Est GFR (MDRD) Af Amer 90, Est GFR (MDRD) Non-Af 75, BUN/Creatinine Ratio 21.6 H, Glucose 256 H, Calcium 8.1 L, Total Bilirubin 0.50, Direct Bilirubin < 0.05, AST 180 H, ALT 166 H, Alkaline Phosphatase 88, Total Protein 7.0, Albumin 2.2 L, Globulin 4.8 H 10/15/21 10:59: POC Glucose 304 H Micro: Microbiology 10/14/21 00:15 Urine, Catheterized Urine Culture - Preliminary Culture exhibits no growth. 10/15/21 04:35 Stool C. difficile DNA Amplification - Final 10/14/21 00:50 Stool Stool Lactoferrin - Final 10/14/21 00:50 Stool Enteric Bacteriology - Final 10/14/21 00:50 Stool Stool Occult Blood (ARTUR) - Final 10/13/21 06:30 Nasal Secretion SARS-CoV-2 Antigen (Rapid) - Final Physical Exam Narrative General: Alert, awake, oriented x3. Fatigue. HEENT: Atraumatic, PERRLA, EOMI, Normocephalic Oral: Oral mucosa moist no Gingival or Mucosal Lesions/ Ulcerations Neck: Supple, No JVD, Negative Carotid Bruits Lungs: Air entry diminished in bilateral lung bases. No crepitation/rhonchi. On 2 L of oxygen Cardiovascular: Regular rate, Regular Rhythm, Normal S1, Normal S2, No murmurs Abdomen: Midline surgical scar from xiphisternum to pubic area. No significant tenderness or distention. Bowels are normal. Passing flatus : External urinary catheter. No renal angle tenderness. No suprapubic tenderness. Extremities: No edema, Capillary Refill Less than 3 Seconds Skin: No rashes, No breakdown Musculoskeletal: Bilateral amputee, right above-knee, left below-knee. Low mobility, bilateral buttock/lumbosacral tenderness Neurological: Cranial nerves II-XII grossly intact, generalized slowing in responding. No focal deficit. Psych/Mental Status: Flat affect. Assessment & Plan Assessment/Plan (1) Diarrhea: PLAN: 1. Sepsis due to acute gastroenteritis: C. difficile ruled out. Patient has leukocytosis with left shift, lactic acidosis, Elevated transaminases and hypoglycemia: Patient is admitted on monitored bed. Patient had 2 L IV fluid normal saline bolus and then he started on D5NS 150 mill per hour and blood pressure is normotensive. Patient has external catheter for urine output monitoring. CT abdomen reviewed with the surgeon as mentioned in HPI. Severe hypokalemia, hypophosphatemia and hypomagnesemia: Electrolytes are getting replaced. 10/14: Patient has hypokalemia, phosphorus 2.8. IV potassium phosphate ordered. Monitor labs. Patient has Covid infection. Started on dexamethasone. I called the nurse to find out what CT PCR not done. Stool for enteric bacteriology panel negative. Stool for occult blood negative. WBC positive. Patient is out of window for remdesivir. 10/15: Potassium 5.4 overcorrected. Not receiving potassium supplement. Patient was offered to go home but she does not have any caregiver at home and she is bilateral amputee with back and buttock pain. Patient has appointment with pain management on 10/17/2021 and I see note of Dr. Adrian on 10/13. Patient is high risk for safe home discharge. Stool for C. difficile negative for PCR. 2. 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 A1c tomorrow a.m. 10/14 blood sugar is running low. Patient on Accu-Chek without minimal coverage 10/15: Glucose is running higher side. Humalog coverage insulin increased. 3. Multiple ventral hernia with bowel and fat herniation: This seems chronic with similar findings in April 2021 CT abdomen. Currently patient does not have abdominal pain at site of hernia. 4. Anxiety and depression/bipolar disorder/schizoaffective disorder: Home medications are continued. 5. Chronic pain syndrome: Fentanyl as needed given hypotension. Patient follows Dr. Adrian for left-sided neck lower back shoulder pain. Had follow-up in the office 10/13/2020 6. History of polysubstance abuse: Patient with documented history of prior cocaine use, 7. Chronic tobacco Abuse/cigarette smoking: Encouraged cessation. Nicotine patch 8. Obesity: Weight loss and lifestyle changes encouraged. 9. DVT prophylaxis: SCDs, enoxaparin 40 mg subcu daily Living will/advanced directive/end of life care: Patient does not have living will or advanced directive. Currently patient lacks understanding of detailed discussion but after discussion of benefits/risks procedures involved with full code, DNR CC arrest and DNR CC, the patient wants full code. Her next to kin is her daughter. Patient does want artificial life support including intubation, tube feed, ventilator and/chest compression, central venous catheter, vasopressor and DC shock if needed Total time spent in [id number] encounter in discussion of advanced directive 16 minutes. Charges/Coding Visit Charges Inpatient E&M: 05660 Subs Hosp L2
[2021-10-15] MEDS: fentaNYL 100 MCG/2 ML Ampul 25 MCG IV ×2 (15:11→21:47)
[2021-10-15 15:41] LABS: Bedside Glucose 292 mg/dL (70-110)
[2021-10-15] MEDS: Atorvastatin Calcium 40 MG Tablet PO (21:09)
[2021-10-15] MEDS: traZODone 50 MG Tablet 75 MG PO (21:09)
[2021-10-15] MEDS: Ondansetron 4 MG/2 ML Vial IV (21:10)
[2021-10-15 21:20] LABS: Bedside Glucose > 500 mg/dL (70-110)
--- NOTE | 2021-10-15 21:27 | PCM.PN.BLA ---
Progress Note With hyperglycemia. We will go ahead and start home long-acting insulin but at a reduced dose. We will give extra units of lispro in addition to her correction scale insulin.
[2021-10-15 23:15] LABS: Bedside Glucose 431 mg/dL (70-110)
[2021-10-16] VITALS (9 sets, daily range): BP systolic 108–145; BP diastolic 71–82; PULSE 64–89; RESP 18–20; TEMP 35.6–37.1; O2SAT 88–97
--- NOTE | 2021-10-16 01:44 | NURSING ---
patient refusing tele at this time. MD notified.
--- NOTE | 2021-10-16 03:26 | NURSING ---
patient ripped out IV. Attempted to restart, patient refused.
[2021-10-16 06:40] LABS: Bedside Glucose 138 mg/dL (70-110)
[2021-10-16 07:13] LABS: Absolute Lymphocyte Count 2.02 X10^3/uL (0.83-4.51); Absolute Neutrophil Count 4.9 X10^3/uL (2.0-7.7); Basophil# 0.03 X10^3/uL; Basophil% 0.4 % (0-1); Eosinophil# 0.09 X10^3/uL; Eosinophils% 1.2 % (0-5); Hematocrit 28.8 % (37-47); Hemoglobin 9.3 g/dL (12.0-15.0); Lymphocyte # 2.02 X10^3/ul (0.83-4.51); Lymphocyte % 26.6 % (19-41); Mean Corp Hgb Conc 32.3 g/dL (32-36); Mean Corpuscular Hgb 25.9 pg (27.0-32.0); Mean Corpuscular Volume 80.2 fL (81-99); Mean Platelet Vol. 11.5 fl (6.2-12.0); Monocyte# 0.28 X10^3/uL; Monocyte% 3.7 % (0-10); NRBC Flagged by Analyzer 0.3 % (0-5); Neutrophil % 64.4 % (47-70); POSITIVE MORPHOLOGY YES; Platelet Count 240 K/mm3 (150-450); RBC Distribution Width CV 19.9 % (11.6-14.6); RBC Distribution Width SD 58.2 fl (35.1-43.9); Red Blood Count 3.59 M/mm3 (4.2-5.4); White Blood Count 7.6 K/mm3 (4.4-11.0)
[2021-10-16 07:30] LABS: AST(SGOT) 70 U/L (15-37); Alanine Aminotransfer ALT/SGPT 118 U/L (13-56); Albumin, Serum 2.2 g/dL (3.2-5.0); Alkaline Phosphatase 79 U/L (45-117); Anion Gap 8 (5-15); BUN 17 mg/dL (7-18); BUN/Creat Ratio 19.1 RATIO (10-20); Bilirubin, Direct 0.11 mg/dL (0.00-0.30); Calcium,Total 9.2 mg/dL (8.5-10.1); Chloride 107 mmol/L (98-107); Creatinine, Serum 0.89 mg/dL (0.55-1.02); EST Glomerular Filtration Rate 69 mL/min (>60); Est Glom Filt Rate - Afr Amer 84 mL/min (>60); Estimated Creatinine Clearance 60.22 ml/min; Glucose 152 mg/dL (74-106); Protein, Total 7.2 g/dL (6.4-8.2); Sodium Level 135 mmol/L (136-145)
[2021-10-16] MEDS: Albuterol 2.5 MG/3 ML VIAL.NEB. INHALATION (07:30)
[2021-10-16 07:34] LABS: Differential Indicated SCAN CRITERIA MET
[2021-10-16] MEDS: Acetaminophen 325 MG Tablet 650 MG PO (08:40)
[2021-10-16] MEDS: dexAMETHasone 4 MG Tablet 6 MG PO (08:41)
[2021-10-16] MEDS: Sertraline 100 MG Tablet PO (08:41)
[2021-10-16] MEDS: Gabapentin 300 MG Capsule PO (08:42)
[2021-10-16] MEDS: Aspirin E.C. 81 MG Tablet PO (08:42)
[2021-10-16] MEDS: Enoxaparin 40 MG/0.4 ML Syringe SC (08:43)
[2021-10-16] MEDS: Menthol/Lanolin/Calamine/Znox 113 GM Tube 1 APPLIC TOPICAL (08:49)
[2021-10-16 08:52] LABS: Hypochromasia 2+; Platelet Estimate ADEQUATE (ADEQ)
--- NOTE | 2021-10-16 10:37 | DS.PCM_ITS ---
Providers Date of Admission: 10/13/21 Primary Care Physician: Dr. Chris Bustamante MD Reason For Visit: ABD PAIN, N/V/DIARRHEA Diagnosis Discharge Diagnosis (1) Diarrhea: Status: Acute Code(s): R19.7 - Diarrhea, unspecified Medications at Discharge Home Medications diclofenac sodium 1 % topical gel 2 g TOPICAL BID g 04/28/21 ondansetron HCl 4 mg tablet 4 mg PO Q6H PRN 04/28/21 oxycodone 10 mg tablet 10 mg PO Q6H PRN 05/26/21 aspirin 81 mg tablet,delayed release 81 mg PO DAILY #90 tab 05/31/21 atorvastatin 40 mg tablet 40 mg PO QHS #90 tab 05/31/21 empagliflozin 25 mg tablet 25 mg PO DAILY #90 tab 05/31/21 metformin 1,000 mg tablet 1,000 mg PO BID #180 tab 05/31/21 omeprazole 40 mg capsule,delayed release 40 mg PO DAILY #90 cap 05/31/21 sertraline 100 mg tablet 100 mg PO DAILY #90 tab 05/31/21 trazodone 50 mg tablet 75 mg PO QHS #90 tab 05/31/21 blood sugar diagnostic #100 ea 06/09/21 cholecalciferol (vitamin D3) 125 mcg (5,000 unit) capsule 125 mcg PO DAILY #90 cap 06/09/21 lancets #100 ea 06/09/21 melatonin 3 mg tablet 3 mg PO QHS PRN #90 tab 06/09/21 quetiapine 25 mg tablet 25 mg PO TID #90 tab 07/08/21 albuterol sulfate 90 mcg/actuation aerosol inhaler 2 puff INHALATION Q6H PRN #8.5 g 08/10/21 pen needle, diabetic 31 gauge x 1/4 #200 ea 08/28/21 gabapentin 300 mg capsule 300 mg PO TID #90 cap 09/01/21 blood-glucose meter #1 ea 09/23/21 flash glucose scanning reader #1 ea 09/23/21 flash glucose sensor #2 ea 09/23/21 insulin lispro 100 unit/mL subcutaneous pen 25 unit SUBCUT .QID #15 ml 09/23/21 Lantus Solostar U-100 Insulin 25 unit SUBCUT BID 90 Days #135 ml 10/16/21 amlodipine 5 mg PO DAILY #90 tab 10/16/21 apixaban [Eliquis] 2.5 mg PO BID #30 tab 10/16/21 dexamethasone 6 mg PO DAILY #7 tab 10/16/21 glipizide 10 mg PO BID #180 tab 10/16/21 hydrochlorothiazide 12.5 mg PO DAILY #90 tab 10/16/21 ibuprofen 400 mg PO Q8H PRN #0 tab 10/16/21 lisinopril 10 mg PO DAILY #90 tab 10/16/21 pseudoephedrine-guaifenesin [Mucus D] 1 tab PO BID #14 tab 10/16/21 sennosides-docusate sodium [Senna Plus] 2 tab-cap PO BID #0 tab 10/16/21 Hospital Course Summary of Care Provided Hospital Course: This 56-year-old female with multiple comorbidities was admitted with nausea, vomiting and diarrhea and mild upper abdominal pain/discomfort for 4 days and was found to have COVID-19 pneumonia on testing. Patient was admitted and monitored bed. 1. Sepsis due to acute gastroenteritis: C. difficile ruled out. COVID-19 pneumonia on admission: Patient has leukocytosis with left shift, lactic acidosis, Elevated transaminases and hypoglycemia: Patient was resuscitated with IV fluid and blood pressure later on normotensive.. Patient has external catheter for urine output monitoring. CT abdomen reviewed with the surgeon and patient was seen by surgeon and found abdominal pain was not due to hernia. Severe hypokalemia, hypophosphatemia and hypomagnesemia: Electrolytes were replaced and monitored during hospital course. Mild hypokalemia probably overcorrection from potassium replacement. Repeat electrolytes were in acceptable range. For COVID-19 pneumonia patient is started on dexamethasone. She is out of window for remdesivir. Not candidate for baricitinib. Stool for C. difficile, PCR negative. Stool for enteric bacteriology panel negative. Stool for occult blood negative. Stool for WBC positive. Patient is out of window for remdesivir. Needs 2 L of oxygen. Patient is ambulatory in home and in the community and requires home oxygen with portability. 2. 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 A1c 9.3%. Initially blood sugar was low but later on higher. Humalog insulin increased accordingly. Home Lantus dose decreased 3. Multiple ventral hernia with bowel and fat herniation: This seems chronic with similar findings in April 2021 CT abdomen. Currently patient does not have abdominal pain at site of hernia. 4. Anxiety and depression/bipolar disorder/schizoaffective disorder: Home medications are continued. 5. Chronic pain syndrome: Fentanyl as needed given hypotension. Patient follows Dr. Adrian for left-sided neck lower back shoulder pain. Had follow-up in the office 10/13/2020 and is follow-up on 10/17/2021 6. History of polysubstance abuse: Patient with documented history of prior cocaine use, 7. Chronic tobacco Abuse/cigarette smoking: Encouraged cessation. Nicotine patch 8. Obesity: Weight loss and lifestyle changes encouraged. 9. DVT prophylaxis: SCDs, enoxaparin 40 mg subcu daily Discharge medication reconciliation done. Discharge follow-up instructions completed. Discharge process discussed with the patient and all questions were answered to patient's satisfaction. Prescription for dexamethasone, Mucinex and Eliquis given. Discharged home with home health care Total time spent, exact 35 minutes on discharge meds reconciliation, examination, coordination of care with nurses and ancillary staff, review of imaging and blood test and discussion with the patient on follow-up instructions Physical Exam Narrative Seen and examined. Patient wants to go home. She has home health. Pulse ox 94% on 2 L of oxygen. General: Alert, awake, oriented x3. Fatigue. HEENT: Atraumatic, PERRLA, EOMI, Normocephalic Oral: Oral mucosa moist no Gingival or Mucosal Lesions/ Ulcerations Neck: Supple, No JVD, Negative Carotid Bruits Lungs: Air entry diminished in bilateral lung bases. No crepitation/rhonchi. Cardiovascular: Regular rate, Regular Rhythm, Normal S1, Normal S2, No murmurs Abdomen: Midline surgical scar from xiphisternum to pubic area. No significant tenderness or distention. Bowels are normal. Passing flatus : Urinary incontinent no renal angle tenderness. No suprapubic tenderness. Extremities: No edema, Capillary Refill Less than 3 Seconds Skin: No rashes, No breakdown Musculoskeletal: Bilateral amputee, right above-knee, left below-knee. Low mobility, bilateral buttock/lumbosacral tenderness Neurological: Cranial nerves II-XII grossly intact, generalized slowing in responding. No focal deficit. Psych/Mental Status: Flat affect. Weight / BMI Weight Weight: 186 lb 4.65 oz Body Mass Index (BMI) 31.9 ABG / Lab / Microbiology Data Result Diagrams: 10/16/21 06:10 10/16/21 06:10 Laboratory: Laboratory Results - last 24 hr 10/15/21 10:59: POC Glucose 304 H 10/15/21 15:21: POC Glucose 292 H 10/15/21 21:07: POC Glucose > 500 H* 10/15/21 23:05: POC Glucose 431 H 10/16/21 06:10: Sodium 135 L, Potassium 4.0, Chloride 107, Carbon Dioxide 20.0 L , Anion Gap 8, BUN 17, Creatinine 0.89, Estim Creat Clear Calc 60.22, Est GFR (MDRD) Af Amer 84, Est GFR (MDRD) Non-Af 69, BUN/Creatinine Ratio 19.1, Glucose 152 H, Calcium 9.2, Total Bilirubin 0.50, Direct Bilirubin 0.11, AST 70 H, ALT 118 H, Alkaline Phosphatase 79, Total Protein 7.2, Albumin 2.2 L, Globulin 5.0 H 10/16/21 06:10: WBC 7.6, RBC 3.59 L, Hgb 9.3 L, Hct 28.8 L, MCV 80.2 L, MCH 25.9 L, MCHC 32.3, RDW Std Deviation 58.2 H, RDW Coeff of Thien 19.9 H, Plt Count 240, MPV 11.5, Immature Gran % (Auto) 3.700 H, Neut % (Auto) 64.4, Lymph % (Auto) 26.6, Whitman % (Auto) 3.7, Eos % (Auto) 1.2, Baso % (Auto) 0.4, Absolute Neuts (auto) 4.9, Absolute Lymphs (auto) 2.02, Nucleated RBC % 0.3, Platelet Estimate ADEQUATE, Hypochromasia 2+ 10/16/21 06:35: POC Glucose 138 H Microbiology: Microbiology 10/14/21 00:15 Urine, Catheterized Urine Culture - Final Culture exhibits no growth. 10/15/21 04:35 Stool C. difficile DNA Amplification - Final 10/14/21 00:50 Stool Stool Lactoferrin - Final 10/14/21 00:50 Stool Enteric Bacteriology - Final 10/14/21 00:50 Stool Stool Occult Blood (ARTUR) - Final 10/13/21 06:30 Nasal Secretion SARS-CoV-2 Antigen (Rapid) - Final Meaningful Use Info Meaningful Use Diagnoses (Choose all that apply): None applicable Discharge Plan Admission Admit Date/Time: 10/13/21 10:38 Primary Reason for Your Visit: COVID 19 Attending Provider: Branden Levy Primary Care Provider: Chris Bustamante Instructions Additional Instructions / Restrictions: The patient has appointment with pain management Dr. Adrian tomorrow on October 17, 2021 Discharge Orders/Prescriptions Prescriptions: New pseudoephedrine-guaifenesin [Mucus D] 60-600 mg tablet extended release 12 hr 1 tab PO BID Qty: 14 RF: 0 Eliquis 2.5 mg tablet 2.5 mg PO BID Qty: 30 RF: 0 dexamethasone 6 mg tablet 6 mg PO DAILY Qty: 7 RF: 0 Continued oxycodone 10 mg tablet 10 mg PO Q6H PRN (Reason: Pain) RF: 0 diclofenac sodium 1 % gel 2 g topical BID RF: 0 ondansetron HCl [Zofran] 4 mg tablet 4 mg PO Q6H PRN (Reason: Nausea) RF: 0 albuterol sulfate 90 mcg/actuation HFA aerosol inhaler 2 puff inhalation Q6H PRN (Reason: shortness of breath or wheezing) Qty: 8.5 RF: 2 glipizide 10 mg tablet 10 mg PO BID Qty: 180 RF: 2 amlodipine 5 mg tablet 5 mg PO DAILY Qty: 90 RF: 2 lisinopril 10 mg tablet 10 mg PO DAILY Qty: 90 RF: 2 Jardiance 25 mg tablet 25 mg PO DAILY Qty: 90 RF: 2 atorvastatin 40 mg tablet 40 mg PO QHS Qty: 90 RF: 3 aspirin 81 mg tablet,delayed release (DR/EC) 81 mg PO DAILY Qty: 90 RF: 2 metformin 1,000 mg tablet 1,000 mg PO BID Qty: 180 RF: 3 Hold Instructions: Resume on 10/01/21. omeprazole 40 mg capsule,delayed release(DR/EC) 40 mg PO DAILY Qty: 90 RF: 3 sertraline 100 mg tablet 100 mg PO DAILY Qty: 90 RF: 2 trazodone 50 mg tablet 75 mg PO QHS Qty: 90 RF: 2 cholecalciferol (vitamin D3) 125 mcg (5,000 unit) capsule 125 mcg PO DAILY Qty: 90 RF: 1 melatonin 3 mg tablet 3 mg PO QHS PRN (Reason: sleep) Qty: 90 RF: 0 (DME) Blood Glucose Test Strip See Rx Instructions .ROUTE .MEDSUPPLY Qty: 100 RF: 3 (DME) lancets [Fingerstix Lancets] Misc See Rx Instructions .ROUTE .MEDSUPPLY Qty: 100 RF: 0 quetiapine 25 mg tablet 25 mg PO TID Qty: 90 RF: 3 (DME) pen needle, diabetic [Lite Touch Insulin Pen [place]] 31 gauge x 1/4 needle See Rx Instructions .ROUTE .MEDSUPPLY Qty: 200 RF: 3 gabapentin 300 mg capsule 300 mg PO TID Qty: 90 RF: 2 (DME) blood-glucose meter Misc See Rx Instructions .ROUTE .MEDSUPPLY Qty: 1 RF: 0 (DME) FreeStyle [place]ory 2 [place] Misc See Rx Instructions .ROUTE .MEDSUPPLY Qty: 1 RF: 0 (DME) FreeStyle [place]ory 2 Sensor Kit See Rx Instructions .ROUTE .MEDSUPPLY Qty: 2 RF: 3 insulin lispro 100 unit/mL insulin pen 25 unit subcut .QID Qty: 15 RF: 2 Changed ibuprofen 800 mg tablet 400 mg PO Q8H PRN (Reason: Pain) Qty: 0 RF: 0 Hold Instructions: Hold for 2 weeks while taking Eliquis hydrochlorothiazide 25 mg tablet 12.5 mg PO DAILY Qty: 90 RF: 2 Lantus Solostar U-100 Insulin 100 unit/mL (3 mL) insulin pen 25 unit subcut BID 90 Days Qty: 135 RF: 2 sennosides-docusate sodium [Senna Plus] 8.6-50 mg tablet 2 tab-cap PO BID Qty: 0 RF: 0 Discontinued magnesium hydroxide [Milk of Magnesia] 400 mg/5 mL suspension 30 ml PO BID PRN (Reason: Constipation) RF: 0 guaifenesin [Mucus Relief] 400 mg tablet 400 mg PO BID RF: 0 levofloxacin 750 mg tablet 750 mg PO Q24H Qty: 5 RF: 0 Referrals / Follow Up: Chris Bustamante MD [Primary Care Provider] - In 1 Week Kathleen Nolasco MD [STAFF PHYSICIAN] - Within 1 Month (FOR [facility]ano) Disposition Disposition (needs filled in before D/C Order can be placed): Home Health Service Charges/Coding Visit Charges Inpatient E&M: 45784 Disch Hosp
[2021-10-16 11:50] LABS: Bedside Glucose 164 mg/dL (70-110)
[2021-10-16] MEDS: Insulin Lispro 100 UNIT/ML INSULN.PEN SC ×2 (12:05→17:20)
[2021-10-16 16:55] LABS: Bedside Glucose 235 mg/dL (70-110)
--- NOTE | 2021-10-16 20:00 | NURSING ---
Pt picked up via [facility] for transport home.
== END 2021-10-16 20:00 | disposition home health service (06) | DRG 249 ==
LOC: ED 07:24 → PCU 10-16 11:31
PROVIDERS: Emergency Medicine; Hospitalist; Admitting Provider Internal Medicine; Emergency Provider Emergency Medicine; PCP Internal Medicine; Visit Provider Internal Medicine
DX: K52.9 Noninfective gastroenteritis and colitis, unspecified (principal); Z89.511 Acquired absence of right leg below knee; Z89.512 Acquired absence of left leg below knee; J44.9 Chronic obstructive pulmonary disease, unspecified; E11.649 Type 2 diabetes mellitus with hypoglycemia without coma; E11.40 Type 2 diabetes mellitus with diabetic neuropathy, unspecified; Z79.4 Long term (current) use of insulin; I10 Essential (primary) hypertension; E78.5 Hyperlipidemia, unspecified; F17.210 Nicotine dependence, cigarettes, uncomplicated; K43.9 Ventral hernia without obstruction or gangrene; G89.4 Chronic pain syndrome; Z79.899 Other long term (current) drug therapy; Z79.82 Long term (current) use of aspirin; E87.6 Hypokalemia; E83.42 Hypomagnesemia; E83.39 Other disorders of phosphorus metabolism; R19.7 Diarrhea, unspecified; E66.9 Obesity, unspecified; Z68.30 Body mass index [BMI] 30.0-30.9, adult
CPT/HCPCS: 87635; 36415; 71045; 74177; 80048; 80076; 81001; 82274; 82962; 83036; 83605; 83615; 83630; 83690; 83735; 84100; 84145; 85025; 87040; 87086; 87426; 87493; 87506; 93005; 94640; 96361; 96365; 96366; 96372; 96375; 96376; 97163; 97165; 97802; 99221; 99251; 99285; J7030; J7040; J7050; Q9967; U0005; A4216; G0378; G0463; J2405; U0003

== ENCOUNTER 2021-11-09 07:36 | Emergency (ER) | payer MEDICAID, SELFPAY ==
[2021-11-09] VITALS (7 sets, daily range): BP systolic 105–117; BP diastolic 66–72; PULSE 82–101; RESP 14–22; TEMP 36.6–37.2; O2SAT 90–98; BMI 30.8
--- NOTE | 2021-11-09 07:49 | EKG12_ITS ---
Test Reason : CP Blood Pressure : / mmHG Vent. Rate : 098 BPM Atrial Rate : 098 BPM P-R Int : 122 ms QRS Dur : 076 ms QT Int : 354 ms P-R-T Axes : 045 -01 019 degrees QTc Int : 451 ms Normal sinus rhythm Normal ECG Confirmed by VIRAL AUGUSTE, JONG ([id number]), visual effects editor EFREM GRADY ([id number]) on 11/11/2021 1:04:22 PM Referred By: PL Confirmed By:AGAPITO STRATTON MD
--- NOTE | 2021-11-09 07:49 | RAD_ITS ---
STUDY: X-RAY CHEST REASON FOR EXAM: Female, 56 years old. Chest pain TECHNIQUE: Single AP portable view of the chest. COMPARISON: Comparison is made with prior study dated 10/14/2021. FINDINGS: EKG electrodes are seen. Stable mild degree of pleural parenchymal changes at the right lung base suggestive of scarring. No acute abnormality is seen. There is no demonstrated pleural abnormality. Normal size heart. Normal mediastinum and hernan. Normal visualized pulmonary arteries. Normal visualized aortic arch and descending thoracic aorta. Normal visualized thoracic spine. Normal visualized ribs, clavicles, and shoulders. There is no demonstrated abnormality of the visualized soft tissue structures of the upper abdomen. RAD/Chest 1 View (Portable) IMPRESSION: Stable pleural parenchymal changes at the right lung base. Electronically Signed: Hamilton Blandon MD at 8:53 EST ,
--- NOTE | 2021-11-09 07:52 | EX.ED.DYSGE1 ---
HPI History of Present Illness Chief Complaint: Chest Pain Informant: patient Narrative Narrative: History is a demented. Patient has very poor knowledge of her past and present medical conditions or history. The below information is what I am able to obtain from her with some consistency. She has been having pains for at least 3 days. She states she has some pains in her chest her abdomen and her back. She almost describes these as roving cramps or soreness. She then states she has had these pains ever since she had Covid back in end of September. They get better and worse at times. Nothing seems to change them. She is eating and drinking without any difficulty. She is moving her bowels. She is not having diarrhea now. She has occasional cough but not much. She is on 2 L of oxygen. She is not really short of breath with this. It sounds like she might be out of her Eliquis for about a week. I am not sure if she is out of other medications. Patient does admit that she has pains in her back all the time. Pains in her abdomen and chest are also common. Again she states 3 days but when you talk more its been going on at least since September and it sounds like it was going on prior to that 2. It is very hard to get any consistent timing of the issues. 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 Alcohol dependence, uncomplicated Atrophy of muscle of multiple sites Bipolar disorder, unspecified Chronic low back pain Chronic neck pain Chronic pain Cocaine abuse, uncomplicated Colon cancer screening COPD (chronic obstructive pulmonary disease) Diabetes Essential (primary) hypertension Flu vaccine need Gastro-esophageal reflux disease without esophagitis History of left below knee amputation History of right above knee amputation Hyperlipidemia, unspecified Hypertension Insomnia, unspecified Insulin dependent diabetes mellitus Major depressive disorder, single episode, unspecified Metabolic encephalopathy Muscle weakness (generalized) Other chronic pain Patient's noncompliance with other medical treatment and regimen Peripheral vascular disease, unspecified Preventative health care Schizoaffective disorder, bipolar type Shortness of breath on exertion Smoker Type 2 diabetes mellitus Type 2 diabetes mellitus without complications Ventral hernia Vitamin D deficiency, unspecified Home Medications diclofenac sodium 1 % topical gel 2 g TOPICAL BID g 04/28/21 [History Last Taken Unknown] ondansetron HCl 4 mg tablet 4 mg PO Q6H PRN 04/28/21 [History Last Taken Unknown] oxycodone 10 mg tablet 10 mg PO Q6H PRN 05/26/21 [History Last Taken Unknown] aspirin 81 mg tablet,delayed release 81 mg PO DAILY #90 tab 05/31/21 [Rx Last Taken Unknown] atorvastatin 40 mg tablet 40 mg PO QHS #90 tab 05/31/21 [Rx Last Taken Unknown] empagliflozin 25 mg tablet 25 mg PO DAILY #90 tab 05/31/21 [Rx Last Taken Unknown] metformin 1,000 mg tablet 1,000 mg PO BID #180 tab 05/31/21 [Rx Last Taken Unknown] omeprazole 40 mg capsule,delayed release 40 mg PO DAILY #90 cap 05/31/21 [Rx Last Taken Unknown] sertraline 100 mg tablet 100 mg PO DAILY #90 tab 05/31/21 [Rx Last Taken Unknown] blood sugar diagnostic #100 ea 06/09/21 [Rx Last Taken Unknown] cholecalciferol (vitamin D3) 125 mcg (5,000 unit) capsule 125 mcg PO DAILY #90 cap 06/09/21 [Rx Last Taken Unknown] lancets #100 ea 06/09/21 [Rx Last Taken Unknown] melatonin 3 mg tablet 3 mg PO QHS PRN #90 tab 06/09/21 [Rx Last Taken Unknown] albuterol sulfate 90 mcg/actuation aerosol inhaler 2 puff INHALATION Q6H PRN #8.5 g 08/10/21 [Rx Last Taken Unknown] pen needle, diabetic 31 gauge x 1/4 #200 ea 08/28/21 [Rx Last Taken Unknown] gabapentin 300 mg capsule 300 mg PO TID #90 cap 09/01/21 [Rx Last Taken Unknown] blood-glucose meter #1 ea 09/23/21 [Rx Last Taken Unknown] flash glucose scanning reader #1 ea 09/23/21 [Rx Last Taken Unknown] Lantus Solostar U-100 Insulin 25 unit SUBCUT BID 90 Days #135 ml 10/16/21 [Rx Last Taken Unknown] amlodipine 5 mg PO DAILY #90 tab 10/16/21 [Rx Last Taken Unknown] apixaban [Eliquis] 2.5 mg PO BID #30 tab 10/16/21 [Rx Last Taken Unknown] dexamethasone 6 mg PO DAILY #7 tab 01/02/22 [Rx Last Taken Unknown] glipizide 10 mg PO BID #180 tab 10/16/21 [Rx Last Taken Unknown] hydrochlorothiazide 12.5 mg PO DAILY #90 tab 10/16/21 [Rx Last Taken Unknown] ibuprofen 400 mg PO Q8H PRN #0 tab 10/16/21 [Rx Last Taken Unknown] lisinopril 10 mg PO DAILY #90 tab 10/16/21 [Rx Last Taken Unknown] pseudoephedrine-guaifenesin [Mucus D] 1 tab PO BID #14 tab 10/16/21 [Rx Last Taken Unknown] sennosides-docusate sodium [Senna Plus] 2 tab-cap PO BID #0 tab 10/16/21 [Rx Last Taken Unknown] insulin lispro 100 unit/mL subcutaneous pen 25 unit SUBCUT .QID #15 ml 10/21/21 [Rx Last Taken Unknown] quetiapine 25 mg tablet 25 mg PO TID #90 tab 11/01/21 [Rx Last Taken Unknown] trazodone 50 mg tablet 75 mg PO QHS #90 tab 11/01/21 [Rx Last Taken Unknown] flash glucose sensor #2 ea 11/07/21 [Rx Last Taken Unknown] magnesium oxide 400 mg PO DAILY #20 cap 11/09/21 [Rx Last Taken Unknown] Allergy/AdvReac Type Severity Reaction Status Date / Time No Known Allergies Allergy Verified 11/09/21 07:37 Family History Mother Heart disease Father Heart disease Surgical History History of exploratory laparotomy S/P AKA (above knee amputation) unilateral S/P BKA (below knee amputation) unilateral Social History household members: none Smoking Status: Current every day smoker tobacco type: cigarettes alcohol intake: current alcohol intake frequency: 0-2 drinks per day Alcohol type: beer details: Currently reports drinking only maximum 1 beer daily, prior higher. substance use type: former substance user what type of physical activity do you participate in: none ROS ROS ED Constitutional Constitutional ED: Denies chills or fever(s) Eyes Eyes: Denies change in vision ENT ENT ED: Denies rhinorrhea or sore throat Cardiovascular Cardiovascular: Reports chest pain; Denies palpitations Respiratory/Chest Respiratory/Chest: Reports cough; Denies dyspnea or sputum Gastrointestinal Gastrointestinal: Reports abdominal pain; Denies diarrhea, nausea or vomiting Genitourinary Genitourinary ED: Denies dysuria Musculoskeletal Musculoskeletal: Reports arthralgias and back pain Integumentary Denies rash Neurologic Neurologic: Denies headache(s) Psychiatric Psychiatric: Reports other Details: History of schizoaffective disorder, bipolar type. Endocrine Endocrinology: Denies polydipsia or polyuria Allergic/Immunologic Allergic/Immunologic ED: Reports urticaria EXAM Physical Exam Const Vital Signs: 11/09/21 07:38 11/09/21 07:50 11/09/21 07:59 Temperature 98.9 F 98.9 F Temperature Source Oral Oral Pulse Rate 101 H 100 Respiratory Rate 20 H 22 H Respiratory Effort Normal Blood Pressure 106/66 105/67 Blood Pressure Mean 79 79 Pulse Ox 90 97 Oxygen Delivery Method Room Air Nasal Cannula Nasal Cannula Oxygen Flow Rate (L/min) 2 2 11/09/21 08:47 11/09/21 09:00 11/09/21 09:01 Temperature 98.0 F 98 F 98 F Temperature Source Oral Oral Oral Pulse Rate 83 82 85 Respiratory Rate 14 20 H 19 H Respiratory Effort Blood Pressure 112/71 112/71 112/71 Blood Pressure Mean 84 84 84 Pulse Ox 98 Oxygen Delivery Method Nasal Cannula Nasal Cannula Nasal Cannula Oxygen Flow Rate (L/min) 2 2 2 11/09/21 10:20 Temperature 98.4 F Temperature Source Oral Pulse Rate 86 Respiratory Rate 14 Respiratory Effort Blood Pressure 117/72 Blood Pressure Mean 87 Pulse Ox 97 Oxygen Delivery Method Nasal Cannula Oxygen Flow Rate (L/min) 2 Positive well nourished and well developed Constitutional Narrative: Patient looks nontoxic and comfortable. She is pleasant and cooperative. General Appearance ED: well developed and NAD; Negative for cyanotic or diaphoretic HEENT Negative for trauma Eyes General Eye ED: Negative for pale conjunctiva Neck no JVD Chest Wall inspection of chest normal and palpation of chest normal Chest Narrative: Mild but no significant tenderness of the chest. Resp normal respiratory effort and clear to auscultation bilaterally Resp Narrative: Patient is not hypoxic on her 2 L. Her lungs actually are clear. We set her up. She takes good deep breaths without any discomfort. Effort and Inspection: Negative for pain with movement Auscultation: Negative for rales, rhonchi or wheezes Cardio regular rate, regular rhythm and no murmurs GI normal to inspection, nondistended, normoactive bowel sounds and non-tender GI Narrative: Large midline abdominal scar this well-healed. She does not know what this is from. She does not know what surgery. Her bowel sounds are normal. There is no tenderness on exam. Palpation: soft Extremity Extremity Narrative: Above and below knee amputations consistent with history. Well-healed distal stumps. Neuro Sensorium / Orientation: alert Psych mental status grossly normal Skin no rashes or lesions noted and no wounds MDM MDM MDM Narrative Medical decision making narrative: Chest x-ray shows no acute changes. CBC shows baseline anemia 10 5. Minimal white count 11.7. Electrolytes and renal function are normal. Glucose was a bit high at 249 but she had not taken her short or long-acting insulin this morning. Magnesium was found to be low again. She has had this problem before. But her EKG does not show abnormal intervals. However, she does have symptoms of roving areas of aches and pains. This could be some cramping. This might be contributed by her low magnesium. I added phosphorus which was normal. Her potassium was normal. I will replace some of her magnesium here. It sounds like she is not on supplementation at home. Patient is feeling better. She has been eating here. She is breathing fine. She states she really feels pretty good. I think we can get her home. I will write for magnesium supplementation and she should follow-up to get this level rechecked by her primary physician. 14: 05 Patient still doing well. She has no complaints. Magnesium is in. We will get her home meds plan. We again discussed reasons to return. She was able to eat a small lunch here. No problems. Lab Data Attestation: I reviewed the patient's lab results. Labs: Laboratory Results - last 24 hr 11/09/21 11/09/21 11/09/21 07:50 07:50 07:50 WBC 11.7 H RBC 4.15 L Hgb 10.5 L Hct 35.1 L MCV 84.6 MCH 25.3 L MCHC 29.9 L RDW Std Deviation 64.7 H RDW Coeff of Thien 21.3 H Plt Count 373 MPV 10.5 Immature Gran % (Auto) 2.500 H Neut % (Auto) 65.5 Lymph % (Auto) 23.3 Sandoval % (Auto) 4.6 Eos % (Auto) 3.7 Baso % (Auto) 0.4 Absolute Neuts (auto) 7.6 Absolute Lymphs (auto) 2.72 Nucleated RBC % 0.3 Anisocytosis 1+ Sodium 139 Potassium 3.6 Chloride 103 Carbon Dioxide 28.0 Anion Gap 8 BUN 8 Creatinine 0.76 Estim Creat Clear Calc 70.52 Est GFR (MDRD) Af Amer 101 Est GFR (MDRD) Non-Af 84 BUN/Creatinine Ratio 10.6 Glucose 249 H Calcium 8.4 L Phosphorus 4.0 Magnesium 0.9 L* Total Bilirubin 0.20 AST 14 L ALT 19 Alkaline Phosphatase 104 Troponin I High Sens 11 Total Protein 8.0 Albumin 2.7 L Globulin 5.3 H Albumin/Globulin Ratio 0.5 L Radiography Diagnostic Testing: Clinical Impression(s) from Imaging Studies Chest X-Ray 11/09/21 07:49 IMPRESSION: Stable pleural parenchymal changes at the right lung base. Electronically Signed: Hamilton Blandon MD at 8:53 EST , EKG Initial EKG: Comments: EKG done for history of chest pain read by me shows a normal sinus rhythm with a rate of 98. No ventricular ectopy. No acute ST elevation or depression. NE interval, QRS duration and QTc normal. EKG is similar to 10/13/2021. Discharge Plan Triage Chief Complaint: Chest Pain ED Provider: Jourdan Kaiser Dx/Rx/DC Orders Clinical Impression: Diffuse pain, Hypomagnesemia Instructions: Discharge Instructions for ... Prescriptions: New magnesium oxide 400 mg magnesium capsule 400 mg PO DAILY Qty: 20 RF: 0 No Action oxycodone 10 mg tablet 10 mg PO Q6H PRN (Reason: Pain) RF: 0 diclofenac sodium 1 % gel 2 g topical BID RF: 0 ondansetron HCl [Zofran] 4 mg tablet 4 mg PO Q6H PRN (Reason: Nausea) RF: 0 albuterol sulfate 90 mcg/actuation HFA aerosol inhaler 2 puff inhalation Q6H PRN (Reason: shortness of breath or wheezing) Qty: 8.5 RF: 2 pseudoephedrine-guaifenesin [Mucus D] 60-600 mg tablet extended release 12 hr 1 tab PO BID Qty: 14 RF: 0 Eliquis 2.5 mg tablet 2.5 mg PO BID Qty: 30 RF: 0 ibuprofen 800 mg tablet 400 mg PO Q8H PRN (Reason: Pain) Qty: 0 RF: 0 Hold Instructions: Hold for 2 weeks while taking Eliquis glipizide 10 mg tablet 10 mg PO BID Qty: 180 RF: 2 amlodipine 5 mg tablet 5 mg PO DAILY Qty: 90 RF: 2 lisinopril 10 mg tablet 10 mg PO DAILY Qty: 90 RF: 2 hydrochlorothiazide 25 mg tablet 12.5 mg PO DAILY Qty: 90 RF: 2 Lantus Solostar U-100 Insulin 100 unit/mL (3 mL) insulin pen 25 unit subcut BID 90 Days Qty: 135 RF: 2 dexamethasone 6 mg tablet 6 mg PO DAILY Qty: 7 RF: 0 sennosides-docusate sodium [Senna Plus] 8.6-50 mg tablet 2 tab-cap PO BID Qty: 0 RF: 0 Jardiance 25 mg tablet 25 mg PO DAILY Qty: 90 RF: 2 atorvastatin 40 mg tablet 40 mg PO QHS Qty: 90 RF: 3 aspirin 81 mg tablet,delayed release (DR/EC) 81 mg PO DAILY Qty: 90 RF: 2 metformin 1,000 mg tablet 1,000 mg PO BID Qty: 180 RF: 3 Hold Instructions: Resume on 10/01/21. omeprazole 40 mg capsule,delayed release(DR/EC) 40 mg PO DAILY Qty: 90 RF: 3 sertraline 100 mg tablet 100 mg PO DAILY Qty: 90 RF: 2 cholecalciferol (vitamin D3) 125 mcg (5,000 unit) capsule 125 mcg PO DAILY Qty: 90 RF: 1 melatonin 3 mg tablet 3 mg PO QHS PRN (Reason: sleep) Qty: 90 RF: 0 (DME) Blood Glucose Test Strip See Rx Instructions .ROUTE .MEDSUPPLY Qty: 100 RF: 3 (DME) lancets [Fingerstix Lancets] Misc See Rx Instructions .ROUTE .MEDSUPPLY Qty: 100 RF: 0 (DME) pen needle, diabetic [Lite Touch Insulin Pen [place]] 31 gauge x 1/4 needle See Rx Instructions .ROUTE .MEDSUPPLY Qty: 200 RF: 3 gabapentin 300 mg capsule 300 mg PO TID Qty: 90 RF: 2 (DME) blood-glucose meter Misc See Rx Instructions .ROUTE .MEDSUPPLY Qty: 1 RF: 0 (DME) FreeStyle Kory 2 [place] Misc See Rx Instructions .ROUTE .MEDSUPPLY Qty: 1 RF: 0 insulin lispro 100 unit/mL insulin pen 25 unit subcut .QID Qty: 15 RF: 2 quetiapine 25 mg tablet 25 mg PO TID Qty: 90 RF: 3 trazodone 50 mg tablet 75 mg PO QHS Qty: 90 RF: 2 (DME) FreeStyle Kory 2 Sensor Kit See Rx Instructions .ROUTE .MEDSUPPLY Qty: 2 RF: 3 Primary Care Provider: Chris Bustamante Referrals: Chris Bustamante MD [Primary Care Provider] - 3-5 Days Disposition Disposition: Home, Self Care
[2021-11-09 08:00] LABS: Absolute Lymphocyte Count 2.72 X10^3/uL (0.83-4.51); Absolute Neutrophil Count 7.6 X10^3/uL (2.0-7.7); Basophil# 0.05 X10^3/uL; Basophil% 0.4 % (0-1); Eosinophil# 0.43 X10^3/uL; Eosinophils% 3.7 % (0-5); Hematocrit 35.1 % (37-47); Hemoglobin 10.5 g/dL (12.0-15.0); Lymphocyte # 2.72 X10^3/ul (0.83-4.51); Lymphocyte % 23.3 % (19-41); Mean Corp Hgb Conc 29.9 g/dL (32-36); Mean Corpuscular Hgb 25.3 pg (27.0-32.0); Mean Corpuscular Volume 84.6 fL (81-99); Mean Platelet Vol. 10.5 fl (6.2-12.0); Monocyte# 0.54 X10^3/uL; Monocyte% 4.6 % (0-10); NRBC Flagged by Analyzer 0.3 % (0-5); Neutrophil # 7.62 X10^3/uL (2.7-7.7); Neutrophil % 65.5 % (47-70); POSITIVE MORPHOLOGY YES; Platelet Count 373 K/mm3 (150-450); RBC Distribution Width CV 21.3 % (11.6-14.6); RBC Distribution Width SD 64.7 fl (35.1-43.9); Red Blood Count 4.15 M/mm3 (4.2-5.4); White Blood Count 11.7 K/mm3 (4.4-11.0)
[2021-11-09 08:05] LABS: Differential Indicated SCAN CRITERIA MET
[2021-11-09 08:23] LABS: ALB/GLOB Ratio 0.5 RATIO (0.9-2.4); AST(SGOT) 14 U/L (15-37); Alanine Aminotransfer ALT/SGPT 19 U/L (13-56); Albumin, Serum 2.7 g/dL (3.2-5.0); Alkaline Phosphatase 104 U/L (45-117); Anion Gap 8 (5-15); BUN 8 mg/dL (7-18); BUN/Creat Ratio 10.6 RATIO (10-20); Calcium,Total 8.4 mg/dL (8.5-10.1); Chloride 103 mmol/L (98-107); Creatinine, Serum 0.76 mg/dL (0.55-1.02); EST Glomerular Filtration Rate 84 mL/min (>60); Est Glom Filt Rate - Afr Amer 101 mL/min (>60); Estimated Creatinine Clearance 70.52 ml/min; Globulin 5.3 g/dL (2.2-4.2); Glucose 249 mg/dL (74-106); Magnesium 0.9 mg/dL (1.6-2.6); Potassium 3.6 mmol/L (3.5-5.1); Sodium Level 139 mmol/L (136-145); Troponin-I HS 11 pg/mL (3.0-54.0)
[2021-11-09 08:28] LABS: Anisocytosis 1+
[2021-11-09] MEDS: Magnesium Sulfate 4gm/100mL 4 GM/100 ML IV.SOLN. IV (09:18)
--- NOTE | 2021-11-09 13:26 | NURSING ---
CALLED FOR RIDE, ETA IS 30 MIN
== END 2021-11-09 14:24 | disposition home or self-care (01) ==
PROVIDERS: Emergency Provider Emergency Medicine; PCP Internal Medicine; Visit Provider Emergency Medicine
DX: R07.9 Chest pain, unspecified (principal); E11.51 Type 2 diabetes mellitus with diabetic peripheral angiopathy without gangrene; F25.0 Schizoaffective disorder, bipolar type; J44.9 Chronic obstructive pulmonary disease, unspecified; F31.9 Bipolar disorder, unspecified; Z79.4 Long term (current) use of insulin; M54.50 Low back pain, unspecified; G89.29 Other chronic pain; R10.9 Unspecified abdominal pain; E83.42 Hypomagnesemia; E78.5 Hyperlipidemia, unspecified; I10 Essential (primary) hypertension; K21.9 Gastro-esophageal reflux disease without esophagitis; F17.210 Nicotine dependence, cigarettes, uncomplicated; Z91.19 Patient's noncompliance with other medical treatment and regimen; Z79.84 Long term (current) use of oral hypoglycemic drugs; Z79.01 Long term (current) use of anticoagulants; Z79.82 Long term (current) use of aspirin; Z79.899 Other long term (current) drug therapy; Z86.16 Personal history of COVID-19; Z82.49 Family history of ischemic heart disease and other diseases of the circulatory system
CPT/HCPCS: 71045; 80053; 83735; 84100; 84484; 85025; 87426; 93005; 96360; 96361; 99285; A4216